=== PATIENT | male | born 1980 | race Caucasian/White ===

== ENCOUNTER 2017-07-30 22:38 | Emergency (ER) | payer OTHER ==
[~2017-07-30] VITALS: Ht 180.3 cm; Wt 98.0 kg
[~2017-07-30 22:38] MED LIST: CYCL1PAK PO; LORA-474 PO; PROT40TA PO; SERO25TA PO; ZOLO25TA PO
[2017-07-30 22:40] VITALS: BP 141/93; PULSE 114; RESP 18; TEMP 99; O2SAT 98
--- NOTE | 2017-07-30 23:00 | PD ---
HPI Chief Complaint: Skin Problem Time Seen by Provider: 22:50 Travel History International Travel<30 days: No Contact w/Intl Traveler<30days: No Traveled to known affect area: No History of Present Illness HPI The patient is a 37 year old male who presents to the [facility] emergency department with a history of IV drug use intermittently since 20 years of age. The patient reports that he mainly uses IV drugs on the weekends. He reports that he has been binging since yesterday with using Dilaudid and cocaine IV. The patient reports that while binging he experienced nausea and vomiting 5-6 times last night. He denies having any diarrhea. He reports that today a Kali 3 hours after injecting his right arm he noticed an area of swelling along the injection site. He reports that he was able to express some yellow drainage from the site. He is concerned that it may be getting infected. He reports that he had a fever with a MAXIMUM TEMPERATURE at home of 100. The patient reports that he recently was diagnosed with rhabdomyolysis. On review of systems otherwise, the patient denies having any cough, congestion, neck pain , chest pain, shortness of breath, abdominal pain, or neurologic symptoms. The patient does however report having symptoms of urinary frequency and urgency. The patient reports having a prior history of kidney stones. [facility] Past Medical History Narrative Medical The patient's past medical history is significant for IVDU, Rhabdomyolysis, chronic back pain due to kyphosis and scoliosis, GERD, kidney stones, anxiety and depression, Hepatitis C. Autoimmune Disease: No Blood Disorders: No Bipolar Disorder: Yes Anxiety: Yes Depression: Yes Cancer: No Cardiovascular Problems: No Chemotherapy: No Diabetes: No Diminished Hearing: No Endocrine: No GERD: Yes Glaucoma: No Genitourinary: Yes Hepatitis: Yes (HEP C) Hiatal Hernia: No Heparin Induced Thrombocytopen: No Immune Disorder: No Kidney Stones: Yes Neurologic: No Psychiatric: Yes Reproductive: No Respiratory: No Radiation Therapy: No Renal Failure: No Sickle Cell Disease: No Thyroid Disease: No Ulcer: No Tetanus Vaccination: < 5 Years Influenza Vaccination: No Past Surgical History Narrative Surgical The patient's past surgical history is significant for a lithotripsy. Abdominal Surgery: No AICD: No Appendectomy: No Arteriovenous Shunt: No Cardiac Surgery: No Cholecystectomy: No Ear Surgery: No Endocrine Surgery: No Eye Surgery: No Genitourinary Surgery: No Gynecologic Surgery: No Insulin Pump: No Joint Replacement: No Neurologic Surgery: No Oral Surgery: No Pacemaker: No Thoracic Surgery: No Other Surgery: Yes (2006--LITHOTRIPSY) Social History Alcohol Use: No Tobacco Use: No Substance Use: Yes (IV DILAUDID, IV cocaine- using since 20 years of age.) Allergies-Medications (Allergen,Severity, Reaction): Coded Allergies: No Known Allergies (Verified Adverse Reaction, Unknown, 07/30/17) Reported Meds & Prescriptions Reported Meds & Active Scripts Active Hydrocodone-Acetaminophen 5-325 mg Tab 1 Tab PO Q6H PRN Doxycycline Hyclate 100 Mg Cap 100 Mg PO BID Bactrim DS (Sulfamethoxazole-Trimethoprim) 800-160 Mg Tab 1 Tab PO BID Protonix (Pantoprazole Sodium) 40 Mg Tab 40 Mg PO DAILY 30 Days Reported Cyclobenzaprinepax 10 & 0.0375-5 mg & % (Hlsrjabbbpetzhq-Xcduqyfyg-Vnrd) 10 Mg Tab 10 Mg PO DAILY Ativan (Lorazepam) 1 Mg Tab 1 Mg PO BID Zoloft (Sertraline HCl) 25 Mg Tab 25 Mg PO DAILY Seroquel 25 mg (Quetiapine Fumarate) 25 Mg Tab 25 Mg PO HS Review of Systems Except as stated in HPI: all other systems reviewed are Neg General / Constitutional: Positive: Fever Eyes: No: Visual changes HENT: No: Headaches Cardiovascular: No: Chest Pain or Discomfort Respiratory: No: Shortness of Breath Gastrointestinal: Positive: Nausea, Vomiting, No: Diarrhea, Abdominal Pain, Changes in Bowel Habits, Indigestion, Loss of Appetite Genitourinary: Positive: Urgency, Frequency, No: Dysuria Musculoskeletal: Positive: Myalgias, Pain Skin: Positive Rash Neurologic: No: Weakness, Focal Abnormalities, Change in Mentation, Slurred Speech, Sensory Disturbance Psychiatric: No: Depression Endocrine: No: Polydipsia Hematologic/Lymphatic: No: Easy Bruising Physical Exam Narrative General: The patient is a well-developed well-nourished male in no acute distress. Head and Neck exam: Head is normocephalic atraumatic. Eyes: EOMI, pupils are equal round and reactive to light. Nose: Midline septum with pink mucous membranes Mouth: Dentition unremarkable. Moist mucus membranes. Posterior oropharynx is not erythematous. No tonsillar hypertrophy. Uvula midline. Airway patent. Neck: No palpable lymphadenopathy. No nuchal rigidity. No thyromegaly. Cardiovascular: Regular rate and rhythm without murmurs, gallops, or rubs. Lungs: Clear to auscultation bilaterally. No wheezes, rhonchi, or rales. Abdomen: Soft, without tenderness to palpation in all 4 quadrants of the abdomen. No guarding, rebound, or rigidity. Normal bowel sounds are audible. No tenderness on palpation of McBurney's point. Extremities: No clubbing, cyanosis, or edema. 2+ pulses in all 4 extremities. No calf tenderness on palpation. The patient is noted to have erythematous papules on the right upper extremity, ventral aspect. He reports that these are multiple injection sites. The one that he reports his area of interest is near the antecubital fossa and is larger than the others is approximately 2 cm in greatest dimension, slightly nodular on palpation, no fluctuance. No drainage is able to be expressed. No vesicle formation. Back: No spinous process tenderness to palpation. No costovertebral angle tenderness to palpation. Neurologic Exam: Grossly nonfocal. Skin Exam: No other rashes are noted. Intact skin that is warm and dry. Data Data Last Documented VS Vital Signs Date Time Temp Pulse Resp B/P (MAP) Pulse Ox O2 Delivery O2 Flow Rate FiO2 07/31/17 01:27 07/30/17 23:48 99 18 96 Room Air 07/30/17 22:40 99.0 Orders Orders Electrocardiogram (07/30/17 23:04) Complete Blood Count With Diff (07/30/17 23:04) Comprehensive Metabolic Panel (07/30/17 23:04) Creatine Kinase (Cpk) (07/30/17 23:04) Ckmb (Isoenzyme) Profile (07/30/17 23:04) Troponin I (07/30/17 23:04) B-Type Natriuretic Peptide (07/30/17 23:04) Prothrombin Time / Inr (Pt) (07/30/17 23:04) Act Partial Throm Time (Ptt) (07/30/17 23:04) Blood Culture (07/30/17 23:04) C-Reactive Protein (Crp) (07/30/17 23:04) Lipase (07/30/17 23:04) Urinalysis - C+S If Indicated (07/30/17 23:04) Westergren Sedimentation Rate (07/30/17 23:04) Magnesium (Mg) (07/30/17 23:04) Chest, Single Ap (07/30/17 23:04) Iv Access Insert/Monitor (07/30/17 23:04) Ecg Monitoring (07/30/17 23:04) Oximetry (07/30/17 23:04) CKMB (07/30/17 23:21) CKMB% (07/30/17 23:21) Ct Abd/Pel W/O Iv Contrast (07/31/17 00:26) Sulfamet-Trimeth Ds 800-160 Mg (Bactrim (07/31/17 01:15) Doxycycline (Vibratab) (07/31/17 01:15) Ed Discharge Order (07/31/17 01:18) Labs Laboratory Tests Test 07/30/17 23:21 White Blood Count 7.6 TH/MM3 Red Blood Count 5.72 MIL/MM3 Hemoglobin 16.1 GM/DL Hematocrit 46.3 % Mean Corpuscular Volume 80.9 FL Mean Corpuscular Hemoglobin 28.2 PG Mean Corpuscular Hemoglobin Concent 34.8 % Red Cell Distribution Width 14.8 % Platelet Count 239 TH/MM3 Mean Platelet Volume 6.8 FL Neutrophils (%) (Auto) 68.2 % Lymphocytes (%) (Auto) 20.7 % Monocytes (%) (Auto) 10.1 % Eosinophils (%) (Auto) 0.7 % Basophils (%) (Auto) 0.3 % Neutrophils # (Auto) 5.2 TH/MM3 Lymphocytes # (Auto) 1.6 TH/MM3 Monocytes # (Auto) 0.8 TH/MM3 Eosinophils # (Auto) 0.1 TH/MM3 Basophils # (Auto) 0.0 TH/MM3 CBC Comment DIFF FINAL Differential Comment Erythrocyte Sedimentation Rate 1 mm/hr Prothrombin Time 10.5 SEC Prothromb Time International Ratio 1.0 RATIO Activated Partial Thromboplast Time 32.0 SEC Urine Color YELLOW Urine Turbidity CLEAR Urine pH 5.0 Urine Specific [place] 1.010 Urine Protein TRACE mg/dL Urine Glucose (UA) NEG mg/dL Urine Ketones TRACE mg/dL Urine Occult Blood SMALL Urine Nitrite NEG Urine Bilirubin NEG Urine Urobilinogen LESS THAN 2.0 MG/DL Urine Leukocyte Esterase NEG Urine RBC 24 /hpf Urine WBC 1 /hpf Urine Squamous Epithelial Cells <1 /hpf Urine Hyaline Casts 1 /lpf Urine Mucus FEW /lpf Microscopic Urinalysis Comment CULT NOT INDICATED Blood Urea Nitrogen 19 MG/DL Creatinine 1.19 MG/DL Random Glucose 87 MG/DL Total Protein 8.9 GM/DL Albumin 4.1 GM/DL Calcium Level 9.5 MG/DL Magnesium Level 2.0 MG/DL Alkaline Phosphatase 89 U/L Aspartate Amino Transf (AST/SGOT) 44 U/L Alanine Aminotransferase (ALT/SGPT) 45 U/L Total Bilirubin 0.7 MG/DL Sodium Level 134 MEQ/L Potassium Level 3.9 MEQ/L Chloride Level 98 MEQ/L Carbon Dioxide Level 28.2 MEQ/L Anion Gap 8 MEQ/L Estimat Glomerular Filtration Rate 69 ML/MIN Total Creatine Kinase 378 U/L Creatine Kinase MB 2.4 NG/ML Creatine Kinase MB % 0.6 % Troponin I LESS THAN 0.02 NG/ML C-Reactive Protein 2.57 MG/DL B-Type Natriuretic Peptide 26 PG/ML Lipase 84 U/L [facility] Medical Decision Making Medical Screen Exam Complete: Yes Emergency Medical Condition: Yes Medical Record Reviewed: Yes Interpretation(s) Last Impressions Abdomen/Pelvis CT 07/31/17 0026 Signed Impressions: Service Date/Time: Monday, July 31, 2017 00:41 - CONCLUSION: 1. 7 x 7 x 10 mm stone in the mid right ureter with moderate to severe hydronephrosis. The stone can be seen on the initial milling planer operator radiograph. 2. Sub-3 mm scattered nonobstructing stones in both kidneys. There is no acute obstruction on the left. Kendell Gonzalez MD Chest X-Ray 07/30/17 4307 Signed Impressions: Service Date/Time: Sunday, July 30, 2017 23:25 - CONCLUSION: No acute cardiopulmonary disease demonstrated. Kendell Gonzalez MD Differential Diagnosis Early cellulitis, versus abscess, versus scarring from prior injections, versus endocarditis, versus bacteremia Narrative Course During the course of the patients emergency department visit, the patients history, examination, and differential diagnosis were reviewed with the patient. The patient was placed on a cardiac tech with oximetry and frequent blood pressure monitoring. The patient had IV access obtained and blood work sent for analysis. The patient had an ECG done on arrival. The patient's ECG shows a sinus rhythm heart rate of 95, QRS duration is 104 ms, QTC 393 ms with an incomplete right bundle branch block noted. No acute ST segment elevation, T waves are inverted in lead 3, aVF, V2. The patient was initially provided Bactrim DS 1 by mouth times one, doxycycline 100 by mouth 1. The patients laboratory studies were reviewed and remarkable for a CBC that is remarkable for a white count of 7.6 with a monocytosis at 10.1, sedimentation rate is normal at 1. CMP is remarkable for sodium of 134, BUN 19, GFR 69, AST 45, CPK 378 with a normal MB percent 0.6, C-reactive protein 2.57, BNP 26, lipase 84, PT 10.5, PTT 32, urinalysis shows trace ketones, small occult blood, rbc's 24. Given the patient's reported history of kidney stones and microscopic hematuria CT scan of the abdomen and pelvis was ordered. Radiology studies were reviewed and remarkable for a chest x-ray that shows no acute cardiopulmonary disease. CT scan of the abdomen and pelvis shows a 7 x 7 x 10 mm stone in the right mid ureter with moderate to severe hydronephrosis. The stone can be seen on the initial milling planer operator radiograph. Less than 3 mm scattered nonobstructing stones in both kidneys. No acute obstruction on the left. The patient was instructed regarding these findings. The patient had no significant pain noted on exam. The patient reports having [facility] insurance. He will follow up with the urologist. He reports that he was already given the name of urologist through [facility] to follow-up with from his primary care physician. The patient will be discharged home on antibiotic for the small area of cellulitis on the right upper extremity. The patient is resting comfortably and feels better, is alert and in no distress. The patients results and examination findings were discussed with the patient. The repeat examination is unremarkable and benign. The history, exam, diagnostic testing, and current condition do not suggest any significant pathology to warrant further testing, continued ED treatment, admission, or surgical evaluation at this point. The vital signs have been stable. The patient does not have uncontrollable pain, intractable vomiting, or other significant symptoms. The patient's condition is stable and appropriate for discharge. The patient will pursue further outpatient evaluation with a primary care physician or other designated or consulting physician as indicated in the discharge instructions. The patient expressed understanding and was agreeable with this plan. Diagnosis Primary Impression: Left ureteral calculus Additional Impression: Cellulitis Qualified Codes: L03.113 - Cellulitis of right upper limb Referrals: Srinivas Betancourt DO 1 day Urologist 1 day Patient Instructions: Cellulitis (ED), General Instructions, Kidney Stones (ED) Additional Instructions: Call a urologist in the morning to schedule a follow-up appointment regarding your right sided kidney stone as this will likely require further intervention with lithotripsy given its size. Med/Other Pt SpecificInfo: Prescription(s) given Scripts Hydrocodone-Acetaminophen (Hydrocodone-Acetaminophen) 5-325 mg Tab 1 TAB PO Q6H Y for PAIN, #12 TAB 0 Refills Prov: Samantha Contreras MD 07/31/17 Doxycycline Hyclate (Doxycycline Hyclate) 100 Mg Cap 100 MG PO BID for Infection, #20 CAP 0 Refills Prov: Samantha Contreras MD 07/31/17 Sulfamethoxazole-Trimethoprim (Bactrim DS) 800-160 Mg Tab 1 TAB PO BID for Infection, #20 TAB 0 Refills Prov: Samantha Contreras MD 07/31/17 Disposition: 01 DISCHARGE HOME Condition: Stable Samantha Contreras MD Jul 30, 2017 23:00
[2017-07-30 23:25] VITALS: RESP 18; O2SAT 98
--- NOTE | 2017-07-30 23:42 | RADRPT ---
EXAM DATE/TIME: 07/30/2017 23:25 [facility] COMPARISON: CHEST SINGLE AP, April 25, 2016, 10:44. INDICATIONS : Headache and dizziness MEDICAL HISTORY : Gastroesophageal reflux disease. Hepatitis C. SURGICAL HISTORY : None. ENCOUNTER: Initial ACUITY: 1 day PAIN SCORE: 7/10 LOCATION: Bilateral chest FINDINGS: A single view of the chest demonstrates the lungs to be symmetrically aerated without evidence of mas s, infiltrate or effusion. The cardiomediastinal contours are unremarkable. Osseous structures are intact. CONCLUSION: No acute cardiopulmonary disease demonstrated. Kendell Gonzalez MD on July 30, 2017 at 23:40 Board Certified Radiologist. This report was verified electronically.
[2017-07-30 23:43] LABS: BILIRUBIN, URINE NEG (NEG); BLOOD, URINE SMALL (NEG); GLUCOSE,URINE NEG (NEG); HYALINE CAST, URINE 1 /lpf (RARE); KETONE, URINE TRACE mg/dL (NEG); MUCUS URINE FEW /lpf (OCC); NITRITE,URINE NEG (NEG); SQUAMOUS EPITHELIAL CELL URINE <1 /hpf (0-5); URINE COLOR YELLOW (YELLW/STRAW); URINE LEUKOCYTE ESTERASE NEG (NEG)
[2017-07-30 23:45] LABS: AUTOMATED NEUTROPHIL # 5.2 TH/MM3 (1.8-7.7); BASOPHIL % 0.3 % (0.0-2.0); EOSINOPHIL # 0.1 TH/MM3 (0-0.4); EOSINOPHIL % 0.7 % (0.0-4.0); HEMATOCRIT 46.3 % (39.0-51.0); HEMOGLOBIN 16.1 GM/DL (13.0-17.0); LYMPH % 20.7 % (9.0-44.0); LYMPHOCYTE # 1.6 TH/MM3 (1.0-4.8); MEAN CELL VOLUME 80.9 FL (80.0-100.0); MEAN CORPUSCULAR HEMOGLOBIN 28.2 PG (27.0-34.0); MEAN CORPUSCULAR HGB CONC 34.8 % (32.0-36.0); MEAN PLATELET VOLUME 6.8 FL (7.0-11.0); MONO % 10.1 % (0.0-8.0); MONOCYTE # 0.8 TH/MM3 (0-0.9); NEUT % 68.2 % (16.0-70.0); PLATELET COUNT 239 TH/MM3 (150-450); RED BLOOD COUNT 5.72 MIL/MM3 (4.50-5.90); RED CELL DISTRIBUTION WIDTH 14.8 % (11.6-17.2); WHITE BLOOD COUNT 7.6 TH/MM3 (4.0-11.0)
[2017-07-30 23:48] VITALS: BP 130/80; PULSE 99; RESP 18; O2SAT 96
[2017-07-30 23:50] LABS: PROTHROMBIN TIME - PATIENT 10.5 SEC (9.8-11.6)
[2017-07-30 23:58] LABS: ALBUMIN 4.1 GM/DL (3.4-5.0); ALT (GPT) 45 U/L (12-78); AST (GOT) 44 U/L (15-37); BICARBONATE 28.2 MEQ/L (21.0-32.0); BLOOD UREA NITROGEN 19 MG/DL (7-18); C-REACTIVE PROTEIN 2.57 MG/DL (0.00-0.30); CALCIUM 9.5 MG/DL (8.5-10.1); CHLORIDE 98 MEQ/L (98-107); CREATININE 1.19 MG/DL (0.60-1.30); GLOMERULAR FILTRATION RATE 69 ML/MIN (>89); GLUCOSE,RANDOM 87 MG/DL (74-106); LIPASE 84 U/L (73-393); SODIUM (NA) 134 MEQ/L (136-145)
[2017-07-30 23:59] LABS: ALKALINE PHOSPHATASE 89 U/L (45-117); TOTAL BILIRUBIN ADULT 0.7 MG/DL (0.2-1.0); TOTAL PROTEIN 8.9 GM/DL (6.4-8.2); TROPONIN I LESS THAN 0.02 NG/ML (0.02-0.05)
--- NOTE | 2017-07-31 00:57 | RADRPT ---
EXAM DATE/TIME: 07/31/2017 00:41 [facility] COMPARISON: No previous studies available for comparison. INDICATIONS : Bialteral flank pain; left greater than right. ORAL CONTRAST: No oral contrast ingested. RADIATION DOSE: 8.42 CTDIvol (mGy) MEDICAL HISTORY : Renal calculi. Hepatitis C. IV drug abuse SURGICAL HISTORY : None. ENCOUNTER: Initial ACUITY: 1 day PAIN SCALE: 5/10 LOCATION: Bilateral flank TECHNIQUE: Volumetric scanning of the abdomen and pelvis was performed. Using automated exposure control and ad justment of the mA and/or kV according to patient size, radiation dose was kept as low as reasonably achievable to obtain optimal diagnostic quality images. DICOM format image data is available electro nically for review and comparison. FINDINGS: LOWER LUNGS: The visualized lower lungs are clear. LIVER: Homogeneous density without lesion. There is no dilation of the biliary tree. No calcified gallston es. SPLEEN: Normal size without lesion. PANCREAS: Within normal limits. KIDNEYS: Irregular stone measuring approximately 7 x 7 x 10 mm in size is seen in knee mid right ureter near t he level of L4. There is associated moderate to severe hydronephrosis and proximal hydroureter.Scatte red sub-3 mm nonobstructing stones are seen of both kidneys. No ureteral calculus or hydronephrosis s een on the left. ADRENAL GLANDS: Within normal limits. VASCULAR: There is no aortic aneurysm. BOWEL/MESENTERY: The stomach, small bowel, and colon demonstrate no acute abnormality. There is no free intraperitone al air or fluid. The appendix is well-visualized, normal. ABDOMINAL WALL: Within normal limits. RETROPERITONEUM: There is no lymphadenopathy. BLADDER: No wall thickening or mass. REPRODUCTIVE: Within normal limits. INGUINAL: There is no lymphadenopathy or hernia. MUSCULOSKELETAL: No acute bony abnormality demonstrated. Chronic appearing anterior wedging seen of multiple lower tho racic and upper lumbar vertebra with associated kyphosis. No acute fracture or subluxation seen. CONCLUSION: 1. 7 x 7 x 10 mm stone in the mid right ureter with moderate to severe hydronephrosis. The stone can be seen on the initial project lead radiograph. 2. Sub-3 mm scattered nonobstructing stones in both kidneys. There is no acute obstruction on the lef t. Kendell Gonzalez MD on July 31, 2017 at 0:52 Board Certified Radiologist. This report was verified electronically.
[2017-07-31] MEDS ORDERED: BACT800T5 PO (01:12)
[2017-07-31] MEDS ORDERED: HYDR-3516 PO (01:12)
[2017-07-31] MEDS ORDERED: DOXY100C PO (01:12)
[2017-07-31] MEDS ORDERED: SULFAMETHOXAZOLE-TRIMETHOPRIM DS 800-160 MG TAB PO ONE (01:15)
[2017-07-31] MEDS ORDERED: DOXYCYCLINE HYCLATE 100 MG TAB PO ONE (01:15)
--- NOTE | 2017-08-01 12:51 | EKG ---
Date Performed: 07/30/2017 Time Performed: 23:46:17 PTAGE: 37 years EKG: Sinus rhythm BORDERLINE LEFT AXIS DEVIATION INCOMPLETE RIGHT BUNDLE BRANCH BLOCK Compared to prior tracing no sig nificant change BORDERLINE ECG PREVIOUS TRACING : 05/23/2016 19.47 DOCTOR: Suraj Contreras Interpretating Date/Time 08/01/2017 12:51:10
== END 2017-07-31 01:28 | disposition home or self-care (01) ==
LOC: NEPC 22:38
DX: N13.2 Hydronephrosis with renal and ureteral calculous obstruction (principal); L03.113 Cellulitis of right upper limb; R11.2 Nausea with vomiting, unspecified; I45.10 Unspecified right bundle-branch block; M62.82 Rhabdomyolysis; M41.9 Scoliosis, unspecified; K21.9 Gastro-esophageal reflux disease without esophagitis; F31.9 Bipolar disorder, unspecified; Z86.19 Personal history of other infectious and parasitic diseases
CPT/HCPCS: 71010; 74176; 80053; 81001; 82550; 82552; 83690; 83735; 83880; 84484; 85025; 85610; 85652; 85730; 86140; 87040; 93005; 99285

== ENCOUNTER 2017-08-17 18:27 | Emergency (ER) | payer OTHER ==
[~2017-08-17 18:27] MED LIST changes: +BACT800T5 PO; +DOXY100C PO; +HYDR-3516 PO
[2017-08-17 18:29] VITALS: BP 142/88; PULSE 96; RESP 16; TEMP 98; O2SAT 100
[2017-08-17 19:23] LABS: AUTOMATED NEUTROPHIL # 2.2 TH/MM3 (1.8-7.7); BASOPHIL # 0.1 TH/MM3 (0-0.2); BASOPHIL % 1.1 % (0.0-2.0); EOSINOPHIL # 0.1 TH/MM3 (0-0.4); EOSINOPHIL % 1.5 % (0.0-4.0); HEMATOCRIT 43.3 % (39.0-51.0); HEMOGLOBIN 15.6 GM/DL (13.0-17.0); LYMPH % 42.4 % (9.0-44.0); LYMPHOCYTE # 2.2 TH/MM3 (1.0-4.8); MEAN CELL VOLUME 80.1 FL (80.0-100.0); MEAN CORPUSCULAR HEMOGLOBIN 28.8 PG (27.0-34.0); MEAN PLATELET VOLUME 6.7 FL (7.0-11.0); MONO % 11.8 % (0.0-8.0); MONOCYTE # 0.6 TH/MM3 (0-0.9); NEUT % 43.2 % (16.0-70.0); PLATELET COUNT 332 TH/MM3 (150-450); RED BLOOD COUNT 5.41 MIL/MM3 (4.50-5.90); RED CELL DISTRIBUTION WIDTH 14.4 % (11.6-17.2); WHITE BLOOD COUNT 5.1 TH/MM3 (4.0-11.0)
[2017-08-17 19:47] LABS: ALBUMIN 4.2 GM/DL (3.4-5.0); AST (GOT) 37 U/L (15-37); BICARBONATE 29.2 MEQ/L (21.0-32.0); BLOOD UREA NITROGEN 7 MG/DL (7-18); CALCIUM 9.4 MG/DL (8.5-10.1); CHLORIDE 99 MEQ/L (98-107); CREATININE 1.07 MG/DL (0.60-1.30); GLOMERULAR FILTRATION RATE 78 ML/MIN (>89); GLUCOSE,RANDOM 77 MG/DL (74-106); SODIUM (NA) 134 MEQ/L (136-145)
[2017-08-17 19:49] LABS: ALT (GPT) 45 U/L (12-78)
[2017-08-17 19:51] LABS: ALKALINE PHOSPHATASE 87 U/L (45-117); TOTAL BILIRUBIN ADULT 0.5 MG/DL (0.2-1.0); TOTAL PROTEIN 9.3 GM/DL (6.4-8.2)
[2017-08-17] MEDS ORDERED: TRAZ100T10 PO (19:53)
[2017-08-17] MEDS ORDERED: CYMB60CA PO (19:53)
[2017-08-17] MEDS ORDERED: LORA-474 PO (19:53)
[2017-08-17 19:56] LABS: BACTERIA, URINE OCC /hpf; BILIRUBIN, URINE NEG (NEG); BLOOD, URINE TRACE (NEG); CALCIUM OXALATE CRYSTALS,URINE FEW /hpf; GLUCOSE,URINE NEG (NEG); KETONE, URINE NEG (NEG); MUCUS URINE MOD /lpf (OCC); NITRITE,URINE NEG (NEG); SQUAMOUS EPITHELIAL CELL URINE 1 /hpf (0-5); URIC ACID CRYSTALS, URINE FEW /hpf; URINE COLOR YELLOW (YELLW/STRAW); URINE LEUKOCYTE ESTERASE SMALL (NEG)
[2017-08-17] MEDS ORDERED: KETOROLAC TROMETHAMINE 60 MG/2 ML (IM) VIAL IM ONE (20:30)
[2017-08-17] MEDS ORDERED: SULFAMETHOXAZOLE-TRIMETHOPRIM DS 800-160 MG TAB PO ONE (20:30)
[2017-08-17] MEDS ORDERED: ACETAMINOPHEN/HYDROcodone 325 MG/5 MG TAB PO ONE (20:30)
[2017-08-17] MEDS ORDERED: NORC5TAB PO (20:32)
[2017-08-17] MEDS ORDERED: BACT800T5 PO (20:32)
--- NOTE | 2017-08-17 20:32 | PD ---
HPI Chief Complaint: Flank/Kidney Pain Time Seen by Provider: 20:12 Travel History International Travel<30 days: No Contact w/Intl Traveler<30days: No Traveled to known affect area: No History of Present Illness HPI 37 years old male complains of right flank pain. Patient states that he has history of kidney stone and awaiting lithotripsy. Patient has been seen by urologist Dr. Prieto. Patient states that he has increasing pain on the right flank area since earlier today. Patient states the pain severe sharp pain localized the right flank area. Patient denies any pain radiation. Patient denies any fever chills. Patient denies any nausea vomiting. Patient denies any dysuria or frequency. Patient states that he noticed hematuria today. PFSH Past Medical History Autoimmune Disease: No Blood Disorders: No Bipolar Disorder: Yes Anxiety: Yes Depression: Yes Cancer: No Cardiovascular Problems: No Chemotherapy: No Diabetes: No Diminished Hearing: No Endocrine: No GERD: Yes Glaucoma: No Genitourinary: Yes Hepatitis: Yes (HEP C) Hiatal Hernia: No Heparin Induced Thrombocytopen: No Immune Disorder: No Kidney Stones: Yes Neurologic: No Psychiatric: Yes Reproductive: No Respiratory: No Radiation Therapy: No Renal Failure: No Sickle Cell Disease: No Thyroid Disease: No Ulcer: No Past Surgical History Abdominal Surgery: No AICD: No Appendectomy: No Arteriovenous Shunt: No Cardiac Surgery: No Cholecystectomy: No Ear Surgery: No Endocrine Surgery: No Eye Surgery: No Genitourinary Surgery: No Gynecologic Surgery: No Insulin Pump: No Joint Replacement: No Neurologic Surgery: No Oral Surgery: No Pacemaker: No Thoracic Surgery: No Other Surgery: Yes (2006--LITHOTRIPSY) Social History Alcohol Use: No Tobacco Use: No Substance Use: Yes (IV DILAUDID, IV cocaine- using since 20 years of age.) Allergies-Medications (Allergen,Severity, Reaction): Coded Allergies: No Known Allergies (Verified Adverse Reaction, Unknown, 08/17/17) Reported Meds & Prescriptions Reported Meds & Active Scripts Active Reported Trazodone (Trazodone HCl) 100 Mg Tablet 200 Mg PO HS Ativan (Lorazepam) 1 Mg Tab 1 Mg PO BID PRN Cymbalta DR (Duloxetine HCl) 60 Mg Capdr 60 Mg PO DAILY Review of Systems General / Constitutional: No: Fever Eyes: No: Visual changes HENT: No: Headaches Cardiovascular: No: Chest Pain or Discomfort Respiratory: No: Shortness of Breath Gastrointestinal: No: Abdominal Pain Genitourinary: Positive: Hematuria, No: Dysuria Musculoskeletal: No: Pain Skin: No Rash Neurologic: No: Weakness Psychiatric: No: Depression Endocrine: No: Polydipsia Hematologic/Lymphatic: No: Easy Bruising Physical Exam Narrative GENERAL: Well-nourished, well-developed patient. SKIN: Focused skin assessment warm/dry. HEAD: Normocephalic. EYES: No scleral icterus. No injection or drainage. NECK: Supple, trachea midline. No JVD or lymphadenopathy. CARDIOVASCULAR: Regular rate and rhythm without murmurs, gallops, or rubs. RESPIRATORY: Breath sounds equal bilaterally. No accessory muscle use. GASTROINTESTINAL: Abdomen soft, non-tender, nondistended. MUSCULOSKELETAL: No cyanosis, or edema. BACK: Patient has mild to moderate tenderness on palpation right flank area without obvious deformity. No CVA tenderness. Data Data Last Documented VS Vital Signs Date Time Temp Pulse Resp B/P (MAP) Pulse Ox O2 Delivery O2 Flow Rate FiO2 08/17/17 18:29 98.0 96 16 142/88 (106) 100 Orders Orders Complete Blood Count With Diff (08/17/17 18:45) Comprehensive Metabolic Panel (08/17/17 18:45) Urinalysis - C+S If Indicated (08/17/17 18:45) Urine Culture (08/17/17 18:55) Ketorolac Inj (Toradol Inj) (08/17/17 20:30) Acetamin-Hydrocod 325-5 Mg (Grahn 5-325 (08/17/17 20:30) Labs Laboratory Tests Test 08/17/17 18:55 White Blood Count 5.1 TH/MM3 Red Blood Count 5.41 MIL/MM3 Hemoglobin 15.6 GM/DL Hematocrit 43.3 % Mean Corpuscular Volume 80.1 FL Mean Corpuscular Hemoglobin 28.8 PG Mean Corpuscular Hemoglobin Concent 36.0 % Red Cell Distribution Width 14.4 % Platelet Count 332 TH/MM3 Mean Platelet Volume 6.7 FL Neutrophils (%) (Auto) 43.2 % Lymphocytes (%) (Auto) 42.4 % Monocytes (%) (Auto) 11.8 % Eosinophils (%) (Auto) 1.5 % Basophils (%) (Auto) 1.1 % Neutrophils # (Auto) 2.2 TH/MM3 Lymphocytes # (Auto) 2.2 TH/MM3 Monocytes # (Auto) 0.6 TH/MM3 Eosinophils # (Auto) 0.1 TH/MM3 Basophils # (Auto) 0.1 TH/MM3 CBC Comment AUTO DIFF Differential Comment AUTO DIFF CONFIRMED Platelet Estimate NORMAL Platelet Morphology Comment NORMAL Red Cell Morphology Comment NORMAL Urine Color YELLOW Urine Turbidity HAZY Urine pH 6.0 Urine Specific [place] 1.014 Urine Protein TRACE mg/dL Urine Glucose (UA) NEG mg/dL Urine Ketones NEG mg/dL Urine Occult Blood TRACE Urine Nitrite NEG Urine Bilirubin NEG Urine Urobilinogen 2.0 MG/DL Urine Leukocyte Esterase SMALL Urine RBC 12 /hpf Urine WBC 15 /hpf Urine Squamous Epithelial Cells 1 /hpf Urine Calcium Oxalate Crystals FEW /hpf Urine Uric Acid Crystals FEW /hpf Urine Bacteria OCC /hpf Urine Mucus MOD /lpf Microscopic Urinalysis Comment CULTURE INDICATED Blood Urea Nitrogen 7 MG/DL Creatinine 1.07 MG/DL Random Glucose 77 MG/DL Total Protein 9.3 GM/DL Albumin 4.2 GM/DL Calcium Level 9.4 MG/DL Alkaline Phosphatase 87 U/L Aspartate Amino Transf (AST/SGOT) 37 U/L Alanine Aminotransferase (ALT/SGPT) 45 U/L Total Bilirubin 0.5 MG/DL Sodium Level 134 MEQ/L Potassium Level 3.2 MEQ/L Chloride Level 99 MEQ/L Carbon Dioxide Level 29.2 MEQ/L Anion Gap 6 MEQ/L Estimat Glomerular Filtration Rate 78 ML/MIN [facility] Medical Decision Making Medical Screen Exam Complete: Yes Emergency Medical Condition: Yes Interpretation(s) 2026 PM. CBC within normal limits. Sodium 134. Potassium 3.2. UA positive for WBC, RBC, bacteria. Differential Diagnosis Differential diagnosis including acute exacerbation of flank pain from kidney stone. Narrative Course 37 years old male with right flank pain and hematuria. History of kidney stone. Patient's awaiting lithotripsy. Toradol 60 mg IM. Lortab 5/325, 1 tablet p.o. given. Diagnosis Primary Impression: Nephrolithiasis Additional Impression: UTI (urinary tract infection) Qualified Codes: N30.01 - Acute cystitis with hematuria Patient Instructions: General Instructions Additional Instructions: Take medications as directed. Follow-up with urologist. Return if worse. Return if intractable pain, persistent vomiting, fever. Med/Other Pt SpecificInfo: Prescription(s) given Scripts Hydrocodone-Acetaminophen (Grahn) 5 Mg-325 Mg Tab 1 TAB PO Q6H Y for PAIN, #20 TAB 0 Refills Prov: Geremias Richmond MD 08/17/17 Sulfamethoxazole-Trimethoprim (Bactrim DS) 800-160 Mg Tab 1 TAB PO BID for Infection, #14 TAB 0 Refills Prov: Geremias Richmond MD 08/17/17 Disposition: 01 DISCHARGE HOME Condition: Stable Geremias Richmond MD Aug 17, 2017 20:32
== END 2017-08-17 21:09 | disposition home or self-care (01) ==
LOC: NEPD 18:27
DX: N20.0 Calculus of kidney (principal); N30.01 Acute cystitis with hematuria; B19.20 Unspecified viral hepatitis C without hepatic coma; F31.9 Bipolar disorder, unspecified; F41.9 Anxiety disorder, unspecified
CPT/HCPCS: 80053; 81001; 85025; 87086; 96372; J1885

== ENCOUNTER 2017-10-20 11:29 | Inpatient (IN) | payer OTHER ==
[~2017-10-20] VITALS: Ht 182.9 cm; Wt 101.2 kg
[~2017-10-20 11:29] MED LIST changes: -CYCL1PAK PO; +CYMB60CA PO; -DOXY100C PO; -HYDR-3516 PO; +NORC5TAB PO; -PROT40TA PO; -SERO25TA PO; +TRAZ100T10 PO; -ZOLO25TA PO
[2017-10-20 11:35] VITALS: BP 108/70; PULSE 99; RESP 17; TEMP 98.1; O2SAT 96
[2017-10-20] MEDS ORDERED: SODIUM CHLOR 0.9% 1000 ML INJ 1,000 ML IV ONE ×2 (11:45→13:00)
[2017-10-20 12:08] LABS: AUTOMATED NEUTROPHIL # 14.3 TH/MM3 (1.8-7.7); BASOPHIL % 0.3 % (0.0-2.0); HEMATOCRIT 51.8 % (39.0-51.0); HEMOGLOBIN 17.4 GM/DL (13.0-17.0); LYMPH % 7.3 % (9.0-44.0); LYMPHOCYTE # 1.3 TH/MM3 (1.0-4.8); MEAN CELL VOLUME 81.5 FL (80.0-100.0); MEAN CORPUSCULAR HEMOGLOBIN 27.3 PG (27.0-34.0); MEAN CORPUSCULAR HGB CONC 33.6 % (32.0-36.0); MEAN PLATELET VOLUME 6.9 FL (7.0-11.0); MONO % 14.2 % (0.0-8.0); MONOCYTE # 2.6 TH/MM3 (0-0.9); NEUT % 78.2 % (16.0-70.0); PLATELET COUNT 274 TH/MM3 (150-450); RED BLOOD COUNT 6.36 MIL/MM3 (4.50-5.90); RED CELL DISTRIBUTION WIDTH 15.7 % (11.6-17.2); WHITE BLOOD COUNT 18.3 TH/MM3 (4.0-11.0)
--- NOTE | 2017-10-20 12:12 | RADRPT ---
EXAM DATE/TIME: 10/20/2017 11:54 [facility] COMPARISON: CHEST SINGLE AP, July 30, 2017, 23:25. INDICATIONS : Body weakness, nausea, unable to urinate. MEDICAL HISTORY : Rhabdomyolysis SURGICAL HISTORY : None. ENCOUNTER: Initial ACUITY: 2 days PAIN SCORE: 0/10 LOCATION: Bilateral chest FINDINGS: A single view of the chest demonstrates the lungs to be symmetrically aerated without evidence of mas s, infiltrate or effusion. The cardiomediastinal contours are unremarkable. Osseous structures are intact. CONCLUSION: No acute disease. Renaldo Erickson MD FACR on October 20, 2017 at 12:09 Board Certified Radiologist. This report was verified electronically.
--- NOTE | 2017-10-20 12:13 | RADRPT ---
EXAM DATE/TIME: 10/20/2017 12:01 [facility] COMPARISON: No previous studies available for comparison. INDICATIONS : Patient woke up on ground. Complaining of leg weakness RADIATION DOSE: 66.35 CTDIvol (mGy) MEDICAL HISTORY : Gastroesophageal reflux disease. Hepatitis C. SURGICAL HISTORY : None. ENCOUNTER: Initial ACUITY: 1 day PAIN SCALE: 0/10 LOCATION: cranial TECHNIQUE: Multiple contiguous axial images were obtained of the head. Using automated exposure control and adj ustment of the mA and/or kV according to patient size, radiation dose was kept as low as reasonably a chievable to obtain optimal diagnostic quality images. DICOM format image data is available electro nically for review and comparison. FINDINGS: CEREBRUM: The ventricles are normal for age. No evidence of midline shift, mass lesion, hemorrhage or acute in farction. No extra-axial fluid collections are seen. POSTERIOR FOSSA: The cerebellum and brainstem are intact. The 4th ventricle is midline. The cerebellopontine angle i s unremarkable. EXTRACRANIAL: The visualized portion of the orbits is intact. SKULL: The calvaria is intact. No evidence of skull fracture. CONCLUSION: Negative for an acute process. Renaldo Erickson MD FACR on October 20, 2017 at 12:11 Board Certified Radiologist. This report was verified electronically.
[2017-10-20 12:15] LABS: INTERNATIONAL NORMALIZED RATIO 1.1 RATIO; PROTHROMBIN TIME - PATIENT 10.7 SEC (9.8-11.6)
[2017-10-20 12:22] LABS: ALBUMIN 4.1 GM/DL (3.4-5.0); BICARBONATE 17.9 MEQ/L (21.0-32.0); BLOOD UREA NITROGEN 25 MG/DL (7-18); CALCIUM 8.1 MG/DL (8.5-10.1); CHLORIDE 100 MEQ/L (98-107); CREATININE 3.22 MG/DL (0.60-1.30); GLOMERULAR FILTRATION RATE 22 ML/MIN (>89); GLUCOSE,RANDOM 99 MG/DL (74-106); SODIUM (NA) 133 MEQ/L (136-145)
[2017-10-20 12:23] LABS: ALT (GPT) 250 U/L (12-78)
--- NOTE | 2017-10-20 12:23 | RADRPT ---
EXAM DATE/TIME: 10/20/2017 12:01 [facility] COMPARISON: No previous studies available for comparison. INDICATIONS : Patient woke up on ground. Left neck pain RADIATION DOSE: 19.58 CTDIvol (mGy) MEDICAL HISTORY : Gastroesophageal reflux disease. Hepatitis C. SURGICAL HISTORY : None. ENCOUNTER: Initial ACUITY: 1 day PAIN SCALE: 6/10 LOCATION: Left neck TECHNIQUE: Volumetric scanning of the cervical spine was performed. Multiplanar reconstructions in the sagittal, coronal and oblique axial planes were performed. Using automated exposure control and adjustment o f the mA and/or kV according to patient size, radiation dose was kept as low as reasonably achievable to obtain optimal diagnostic quality images. DICOM format image data is available electronically f or review and comparison. FINDINGS: No fractures. VERTEBRAE: Normal vertebral body height. ALIGNMENT: No evidence of subluxation. C2-C3: The bony spinal canal is normal in size. No evidence of disc bulge or herniation. The neural forami na are bilaterally patent. C3-C4: The bony spinal canal is normal in size. No evidence of disc bulge or herniation. The neural forami na are bilaterally patent. C4-C5: Mild asymmetry right-sided uncovertebral osteophytic spurring. No significant canal or foraminal comp romise. C5-C6: The bony spinal canal is normal in size. No evidence of disc bulge or herniation. The neural forami na are bilaterally patent. C6-C7: The bony spinal canal is normal in size. No evidence of disc bulge or herniation. The neural forami na are bilaterally patent. C7-T1: The bony spinal canal is normal in size. No evidence of disc bulge or herniation. The neural forami na are bilaterally patent. CONCLUSION: No acute bony injury of the cervical spine Kendell Aguilar MD on October 20, 2017 at 12:17 Board Certified Radiologist. This report was verified electronically.
[2017-10-20 12:25] LABS: LACTIC ACID SEPSIS PROTOCOL 2.3 mmol/L (0.4-2.0)
[2017-10-20] MEDS ORDERED: VANCOMYCIN INJ 1,250 MG in SODIUM CHLOR 0.9% 250 ML INJ 250 ML IV ONE (12:30)
[2017-10-20] MEDS ORDERED: cefTRIAXone INJ 2,000 MG in SODIUM CHLORIDE 0.9% INJ 100 ML IV ONE (12:30)
[2017-10-20 12:49] LABS: ALKALINE PHOSPHATASE 99 U/L (45-117); AST (GOT) 1422 U/L (15-37); TOTAL BILIRUBIN ADULT 0.4 MG/DL (0.2-1.0); TOTAL PROTEIN 9.5 GM/DL (6.4-8.2)
[2017-10-20 12:56] LABS: BANDS 4 % (0-6); LYMPHOCYTES 9 % (9-44); MONOCYTES 14 % (0-8); NEUTROPHIL # MANUAL DIFF 14.1 TH/MM3 (1.8-7.7); POLYS (SEG NEUTROPHILS) 73 % (16-70)
[2017-10-20 13:23] VITALS: BP 109/60; PULSE 93; RESP 17; O2SAT 95
--- NOTE | 2017-10-20 13:38 | PD ---
HPI Chief Complaint: Neuro Symptoms/ Deficits Time Seen by Provider: 11:36 Travel History International Travel<30 days: No Contact w/Intl Traveler<30days: No Traveled to known affect area: No History of Present Illness HPI Patient is a 37-year-old male who comes in complaining of feeling unwell. He says he used cocaine and heroin last night and does not know what happened. He woke up on the floor today not feeling well. He is not sure if he has a fever. He says he has some pain to his left side and had some pain in his left leg. He does not know if he fell. He denies shortness of breath, nausea or vomiting. Severity is mild to moderate. PFSH Past Medical History Autoimmune Disease: No Blood Disorders: No Bipolar Disorder: Yes Anxiety: Yes Depression: Yes Cancer: No Cardiovascular Problems: No Chemotherapy: No Diabetes: No Diminished Hearing: No Endocrine: No GERD: Yes Glaucoma: No Genitourinary: Yes Hepatitis: Yes (HEP C) Hiatal Hernia: No Heparin Induced Thrombocytopen: No Immune Disorder: No Kidney Stones: Yes Neurologic: No Psychiatric: Yes Reproductive: No Respiratory: No Radiation Therapy: No Renal Failure: No Sickle Cell Disease: No Thyroid Disease: No Ulcer: No Influenza Vaccination: No Past Surgical History Abdominal Surgery: No AICD: No Appendectomy: No Arteriovenous Shunt: No Cardiac Surgery: No Cholecystectomy: No Ear Surgery: No Endocrine Surgery: No Eye Surgery: No Genitourinary Surgery: No Gynecologic Surgery: No Insulin Pump: No Joint Replacement: No Neurologic Surgery: No Oral Surgery: No Pacemaker: No Thoracic Surgery: No Other Surgery: Yes (2006&2016--LITHOTRIPSY) Social History Alcohol Use: No Tobacco Use: No Substance Use: Yes (IV DILAUDID, IV cocaine- using since 20 years of age.) Allergies-Medications (Allergen,Severity, Reaction): Coded Allergies: No Known Allergies (Verified Allergy, Unknown, 10/20/17) Reported Meds & Prescriptions Reported Meds & Active Scripts Active Reported Trazodone (Trazodone HCl) 100 Mg Tablet 200 Mg PO HS Ativan (Lorazepam) 1 Mg Tab 1 Mg PO BID PRN Cymbalta DR (Duloxetine HCl) 60 Mg Capdr 60 Mg PO DAILY Review of Systems Except as stated in HPI: all other systems reviewed are Neg General / Constitutional: No: Fever, Chills HENT: No: Headaches, Lightheadedness Respiratory: No: Shortness of Breath Gastrointestinal: No: Nausea, Vomiting Musculoskeletal: Positive: Myalgias Skin: No Rash, No Change in Pigmentation Neurologic: No: Weakness, Dizziness Physical Exam Narrative GENERAL: Awake and alert, in no acute distress. SKIN: Focused skin assessment warm/dry. Track hicks present, no abscesses or cellulitis. HEAD: Atraumatic. Normocephalic. EYES: Pupils equal and round. No scleral icterus. ENT: Mucous membranes pink and moist. NECK: Trachea midline. No JVD. CARDIOVASCULAR: Regular rate and rhythm. No murmur appreciated. RESPIRATORY: No accessory muscle use. Clear to auscultation. Breath sounds equal bilaterally. GASTROINTESTINAL: Abdomen soft, non-tender, nondistended. MUSCULOSKELETAL: No obvious deformities. No clubbing. No cyanosis. No edema. NEUROLOGICAL: Awake and alert. No obvious cranial nerve deficits. Motor grossly within normal limits. Normal speech. PSYCHIATRIC: Appropriate mood and affect; insight and judgment normal. Data Data Last Documented VS Vital Signs Date Time Temp Pulse Resp B/P (MAP) Pulse Ox O2 Delivery O2 Flow Rate FiO2 10/20/17 13:23 93 17 109/60 (76) 95 10/20/17 11:35 98.1 Orders Orders Electrocardiogram (10/20/17 11:36) Complete Blood Count With Diff (10/20/17 11:36) Comprehensive Metabolic Panel (10/20/17 11:36) Prothrombin Time / Inr (Pt) (10/20/17 11:36) Act Partial Throm Time (Ptt) (10/20/17 11:36) Lactic Acid Sepsis Protocol (10/20/17 11:36) Ckmb (Isoenzyme) Profile (10/20/17 11:36) Troponin I (10/20/17 11:36) Urinalysis - C+S If Indicated (10/20/17 11:36) Blood Culture (10/20/17 11:36) Chest, Single Ap (10/20/17 11:36) Blood Glucose (10/20/17 11:36) Ecg Monitoring (10/20/17 11:36) Iv Access Insert/Monitor (10/20/17 11:36) Oximetry (10/20/17 11:36) Oxygen Administration (10/20/17 11:36) Ct Brain W/O Iv Contrast(Rout) (10/20/17 11:36) Ct Cerv Spine W/O Contrast (10/20/17 ) Sodium Chlor 0.9% 1000 Ml Inj (Ns 1000 M (10/20/17 11:45) Ceftriaxone Inj (Rocephin Inj) (10/20/17 12:30) Vancomycin Inj (Vancomycin Inj) (10/20/17 12:30) Sodium Chlor 0.9% 1000 Ml Inj (Ns 1000 M (10/20/17 13:00) Heparin Inj (Heparin Inj) (10/20/17 19:45) Heparin Inj (Heparin Inj) (10/20/17 19:45) Heparin-D5w 25,000 U/250 Ml (Heparin-D5w (10/20/17 13:45) Admit Order (Ed Use Only) (10/20/17 ) CKMB (10/20/17 11:50) CKMB% (10/20/17 11:50) Labs Laboratory Tests Test 10/20/17 11:50 10/20/17 11:58 White Blood Count 18.3 TH/MM3 Red Blood Count 6.36 MIL/MM3 Hemoglobin 17.4 GM/DL Hematocrit 51.8 % Mean Corpuscular Volume 81.5 FL Mean Corpuscular Hemoglobin 27.3 PG Mean Corpuscular Hemoglobin Concent 33.6 % Red Cell Distribution Width 15.7 % Platelet Count 274 TH/MM3 Mean Platelet Volume 6.9 FL Neutrophils (%) (Auto) 78.2 % Lymphocytes (%) (Auto) 7.3 % Monocytes (%) (Auto) 14.2 % Eosinophils (%) (Auto) 0.0 % Basophils (%) (Auto) 0.3 % Neutrophils # (Auto) 14.3 TH/MM3 Lymphocytes # (Auto) 1.3 TH/MM3 Monocytes # (Auto) 2.6 TH/MM3 Eosinophils # (Auto) 0.0 TH/MM3 Basophils # (Auto) 0.0 TH/MM3 CBC Comment AUTO DIFF Differential Total Cells Counted 100 Neutrophils % (Manual) 73 % Band Neutrophils % 4 % Lymphocytes % 9 % Monocytes % 14 % Neutrophils # (Manual) 14.1 TH/MM3 Differential Comment FINAL DIFF MANUAL Platelet Estimate NORMAL Platelet Morphology Comment NORMAL Red Cell Morphology Comment NORMAL Prothrombin Time 10.7 SEC Prothromb Time International Ratio 1.1 RATIO Activated Partial Thromboplast Time 32.4 SEC Blood Urea Nitrogen 25 MG/DL Creatinine 3.22 MG/DL Random Glucose 99 MG/DL Total Protein 9.5 GM/DL Albumin 4.1 GM/DL Calcium Level 8.1 MG/DL Alkaline Phosphatase 99 U/L Aspartate Amino Transf (AST/SGOT) 1422 U/L Alanine Aminotransferase (ALT/SGPT) 250 U/L Total Bilirubin 0.4 MG/DL Sodium Level 133 MEQ/L Potassium Level 5.7 MEQ/L Chloride Level 100 MEQ/L Carbon Dioxide Level 17.9 MEQ/L Anion Gap 15 MEQ/L Estimat Glomerular Filtration Rate 22 ML/MIN Total Creatine Kinase 86727 U/L Creatine Kinase MB 481.4 NG/ML Creatine Kinase MB % 0.7 % Troponin I 11.20 NG/ML Lactic Acid Level 2.3 mmol/L [facility] Medical Decision Making Medical Screen Exam Complete: Yes Emergency Medical Condition: Yes Medical Record Reviewed: Yes Interpretation(s) ECG shows an incomplete right bundle branch block, no ST elevation or depression Differential Diagnosis Endocarditis versus sepsis versus fall versus drug abuse versus rhabdomyolysis versus NSTEMI Narrative Course Patient is a 37-year-old male who comes in from home complaining of feeling unwell. Exam shows no neurologic abnormalities, he is moving all his extremities. IV established, labs sent. Labs concerning for an elevated white blood cell count to 18.3. Creatinine is elevated to 3.22. AST and ALT are elevated. Troponin is 11.2. I spoke with Dr. spears of cardiology. He suggests starting the patient on heparin and he will do an echocardiogram. Patient also treated with antibiotics for possible endocarditis. He will be admitted for further management. Diagnosis Primary Impression: Acute renal failure (ARF) Qualified Codes: N17.9 - Acute kidney failure, unspecified Additional Impressions: Polysubstance abuse NSTEMI (non-ST elevated myocardial infarction) Endocarditis Qualified Codes: I33.9 - Acute and subacute endocarditis, unspecified Admitting Information Admitting Physician Requests: Admit Radha aHskins MD Oct 20, 2017 13:38
[2017-10-20] MEDS ORDERED: HEPARIN-D5W 25,000 U/250 ML 250 ML IV PRN (13:45)
--- NOTE | 2017-10-20 14:17 | EKG ---
Date Performed: 10/20/2017 Time Performed: 11:38:40 PTAGE: 37 years EKG: Sinus rhythm INDETERMINATE AXIS INCOMPLETE RIGHT BUNDLE BRANCH BLOCK BORDERLINE ECG PROBABLY No significant thomason e from prior electrocardiogram. PREVIOUS TRACING : 07/30/2017 23.46 DOCTOR: Gera Modi Interpretating Date/Time 10/20/2017 14:16:55
[2017-10-20 16:10] LABS: AMORPHOUS SEDIMENT, URINE RARE; BILIRUBIN, URINE NEG (NEG); BLOOD, URINE LARGE (NEG); CALCIUM OXALATE CRYSTALS,URINE OCC /hpf; GLUCOSE,URINE NEG (NEG); KETONE, URINE TRACE mg/dL (NEG); NITRITE,URINE NEG (NEG); PH, URINE 5.5 (5.0-8.5); SQUAMOUS EPITHELIAL CELL URINE 3 /hpf (0-5); URINE LEUKOCYTE ESTERASE TRACE (NEG)
[2017-10-20 16:12] LABS: URINE COLOR RED (YELLW/STRAW)
--- NOTE | 2017-10-20 16:20 | HHI.HP ---
HPI Service [facility] Hospitalists Primary Care Physician Renaldo Villalba, DO Admission Diagnosis Cocaine induced rhabdomyolysis, acute renal failure Chief Complaint: LE weakness Travel History International Travel<30 Days: No Contact w/Intl Traveler <30 Da: No Traveled to Known Affected Are: No History of Present Illness Mr. Mathias is a 37 y/o WM with history of polysubstance abuse/IVDA, hx of rhabdomyolysis, nephrolithiasis and had lithotripsy in August 2017 and Hepatitis C. Pt presented to the ED at [facility] on 10/20/17 with complaints of LE weakness and feeling unwell. He reports that he injected heroin and cocaine into his arm yesterday and then he woke up around 330AM this morning on the floor and felt like he couldn't move his legs. He states that he typically uses iv Dilaudid once every couple weeks, iv cocaine about once per month and iv heroin about once per year. He states that when he has used IV heroin in the past he has had rhabdomyolysis. This occurred in 2015 as well and pt was hospitalized at that time. Pt has had a few episodes of vomiting today and feels that he has severe weakness in his legs and a pins and needles sensation. He had urinated a small amount of dark urine today. His labs at admission revealed total CK 68,160, CK-MB 481.4, Cr 3.22/BUN 25, potassium 5.7 and Troponin 11.20. Pt denies any fevers, chills, night sweats, chest pain, SOB, palpitations, abdominal pain, lightheadedness or dizziness. Blood cultures were drawn in the ED and are pending. Pt has received 2L of IV NS in the ED so far. Review of Systems Gastrointestinal: COMPLAINS OF: Nausea, Vomiting, DENIES: Abdominal pain, Diarrhea Musculoskeletal: COMPLAINS OF: Muscle aches, DENIES: Joint pain Integumentary: DENIES: Rash Neurologic: COMPLAINS OF: Localized weakness Past Family Social History Past Medical History IVDA Hepatitis C, treatment naive Depression/Anxiety Nephrolithiasis Hx of rhabdomyolysis in 2016 Past Surgical History None reported Reported Medications -Trazodone 200 Mg PO HS -Ativan 1 Mg PO BID PRN -Cymbalta DR 60 Mg PO DAILY Allergies: Coded Allergies: No Known Allergies (Verified Allergy, Unknown, 10/20/17) Family History Noncontributory Social History (+)IVDA, typically uses iv Dilaudid once every couple weeks, iv cocaine about once per month and iv heroin about once per year. Denies any alcohol use Pt denies any tobacco use Physical Exam Vital Signs Vital Signs Date Time Temp Pulse Resp B/P (MAP) Pulse Ox O2 Delivery O2 Flow Rate FiO2 10/20/17 13:23 93 17 109/60 (76) 95 10/20/17 11:35 98.1 99 17 108/70 (83) 96 Physical Exam GENERAL: This is a well-nourished, well-developed patient, in no apparent distress. SKIN: Cool and dry. Injection hicks on the tops of bilateral feet and on his arms HEENT: Atraumatic. Normocephalic. No temporal or scalp tenderness. No scleral icterus. Airway patent. NECK: Trachea midline, supple, nontender. CARDIO: Regular. RESP: CTA bilaterally. No wheezes, rales, or rhonchi. ABD: +BS, soft, non-tender, nondistended. EXT: Extremities without clubbing, cyanosis, or edema. Pain with palpation of the calves and pain with movement of his legs NEURO: Awake and alert. Motor and sensory grossly within normal limits. Normal speech. Laboratory Laboratory Tests Test 10/20/17 11:50 10/20/17 11:58 10/20/17 15:00 10/20/17 15:25 White Blood Count 18.3 Red Blood Count 6.36 Hemoglobin 17.4 Hematocrit 51.8 Mean Corpuscular Volume 81.5 Mean Corpuscular Hemoglobin 27.3 Mean Corpuscular Hemoglobin Concent 33.6 Red Cell Distribution Width 15.7 Platelet Count 274 Mean Platelet Volume 6.9 Neutrophils (%) (Auto) 78.2 Lymphocytes (%) (Auto) 7.3 Monocytes (%) (Auto) 14.2 Eosinophils (%) (Auto) 0.0 Basophils (%) (Auto) 0.3 Neutrophils # (Auto) 14.3 Lymphocytes # (Auto) 1.3 Monocytes # (Auto) 2.6 Eosinophils # (Auto) 0.0 Basophils # (Auto) 0.0 CBC Comment AUTO DIFF Differential Total Cells Counted 100 Neutrophils % (Manual) 73 Band Neutrophils % 4 Lymphocytes % 9 Monocytes % 14 Neutrophils # (Manual) 14.1 Differential Comment FINAL DIFF MANUAL Platelet Estimate NORMAL Platelet Morphology Comment NORMAL Red Cell Morphology Comment NORMAL Prothrombin Time 10.7 Prothromb Time International Ratio 1.1 Activated Partial Thromboplast Time 32.4 Blood Urea Nitrogen 25 Creatinine 3.22 Random Glucose 99 Total Protein 9.5 Albumin 4.1 Calcium Level 8.1 Alkaline Phosphatase 99 Aspartate Amino Transf (AST/SGOT) 1422 Alanine Aminotransferase (ALT/SGPT) 250 Total Bilirubin 0.4 Sodium Level 133 Potassium Level 5.7 Chloride Level 100 Carbon Dioxide Level 17.9 Anion Gap 15 Estimat Glomerular Filtration Rate 22 Total Creatine Kinase 40183 Creatine Kinase MB 481.4 Creatine Kinase MB % 0.7 Troponin I 11.20 Lactic Acid Level 2.3 Date/Time Source Procedure Growth Status 10/20/17 11:50 Blood Peripheral Aerobic Blood Culture Pending Received 10/20/17 11:50 Blood Peripheral Anaerobic Blood Culture Pending Received Result Diagram: 10/20/17 1150 10/20/17 1150 Imaging Last Impressions Head CT 10/20/17 1136 Signed Impressions: Service Date/Time: Friday, October 20, 2017 12:01 - CONCLUSION: Negative for an acute process. Renaldo Erickson MD FACR Chest X-Ray 10/20/17 1136 Signed Impressions: Service Date/Time: Friday, October 20, 2017 11:54 - CONCLUSION: No acute disease. Renaldo Erickson MD FACR Cervical Spine CT 10/20/17 0000 Signed Impressions: Service Date/Time: Friday, October 20, 2017 12:01 - CONCLUSION: No acute bony injury of the cervical spine Kendell Aguilar MD Caprini VTE Risk Assessment Caprini VTE Risk Assessment: Mod/High Risk (score >= 2) Caprini Risk Assessment Model Point Value = 1 Point Value = 2 Point Value = 3 Point Value = 5 Age 41-60 Minor surgery BMI > 25 kg/m2 Swollen legs Varicose veins or History of unexplained or recurrent spontaneous Oral contraceptives or hormone replacement Sepsis (< 1 month) Serious lung disease, including pneumonia (< 1 month) Abnormal pulmonary function Acute myocardial infarction Congestive heart failure (< 1 month) History of inflammatory bowel disease Medical patient at bed rest Age 61-74 Arthroscopic surgery Major open surgery (> 45 min) Laparoscopic surgery (> 45 min) Malignancy Confined to bed (> 72 hours) Immobilizing plaster cast Central venous access Age >= 75 History of VTE Family history of VTE Factor V Leiden Prothrombin [id number] Lupus anticoagulant Anticardiolipin antibodies Elevated serum homocysteine Heparin-induced thrombocytopenia Other congenital or acquired thrombophilia Stroke (< 1 month) Elective arthroplasty Hip, pelvis, or leg fracture Acute spinal cord injury (< 1 month) Prophylaxis Regimen Total Risk Factor Score Risk Level Prophylaxis Regimen 0-1 Low Early ambulation 2 Moderate Order ONE of the following: *Sequential Compression Device (SCD) *Heparin 5000 units SQ BID 3-4 Higher Order ONE of the following medications: *Heparin 5000 units SQ TID *Enoxaparin/Lovenox 40 mg SQ daily (WT < 150 kg, CrCl > 30 mL/min) *Enoxaparin/Lovenox 30 mg SQ daily (WT < 150 kg, CrCl > 10-29 mL/min) *Enoxaparin/Lovenox 30 mg SQ BID (WT < 150 kg, CrCl > 30 mL/min) AND/OR *Sequential Compression Device (SCD) 5 or more Highest Order ONE of the following medications: *Heparin 5000 units SQ TID (Preferred with Epidurals) *Enoxaparin/Lovenox 40 mg SQ daily (WT < 150 kg, CrCl > 30 mL/min) *Enoxaparin/Lovenox 30 mg SQ daily (WT < 150 kg, CrCl > 10-29 mL/min) *Enoxaparin/Lovenox 30 mg SQ BID (WT < 150 kg, CrCl > 30 mL/min) AND *Sequential Compression Device (SCD) Assessment and Plan Problem List: (1) Rhabdomyolysis ICD Codes: M62.82 - Rhabdomyolysis Status: Acute Plan: Rhabdomyolysis, likely cocaine induced Acute renal failure, secondary to rhabdomyolysis Hyperkalemia Elevated LFTs, likely related to rhabdo IVDA - Pt is a 37 y/o WM with history of polysubstance abuse/IVDA, hx of rhabdomyolysis, nephrolithiasis and had lithotripsy in August 2017 and Hepatitis C. - Pt presented to the ED at [facility] on 10/20/17 with complaints of LE weakness and feeling unwell. He that he injected heroin and cocaine into his arm yesterday and then he woke up around 330AM this morning on the floor and felt like he couldn't move his legs. - Pt has had a few episodes of vomiting today and feels that he has severe weakness in his legs and a pins and needles sensation. - He had urinated a small amount of dark urine today. - Labs at admission revealed total CK 68,160, CK-MB 481.4, Cr 3.22/BUN 25, potassium 5.7 and Troponin 11.20. - Blood cultures were drawn in the ED and are pending. - Pt has received 2L of IV NS in the ED so far. - Recheck BMP, CK, CK-MB and troponin at 1800 this evening and in AM - Continue aggressive IVF hydration - Encourage oral intake - Telemetry - If renal function does not recover then we will need to consult Nephrology - Discussed importance of cessation of IVDA - Supportive care - DVT prophylaxis with Heparin SQ Q12H (2) Acute renal failure due to rhabdomyolysis ICD Codes: N17.9 - Acute kidney failure, unspecified; M62.82 - Rhabdomyolysis Status: Acute (3) IVDU (intravenous drug user) ICD Codes: F19.90 - Other psychoactive substance use, unspecified, uncomplicated Status: Chronic (4) Acute hyperkalemia ICD Codes: E87.5 - Hyperkalemia Status: Acute (5) Dehydration ICD Codes: E86.0 - Dehydration Status: Acute Discussed Condition With Patient examined. Assessment and plan formulated with Nicky Cuevas PA-C. I agree with the above. cocaine and heroin injection cocaine rhabdomyolysis margarita due to severe rhabdo acute lower ext weakness/felt related to rhabdo pt has no cp and not felt to have ACS. monitor for sx's aggressive IVF. if cr not improving will need to consult renal Physician Certification 2 Midnight Certification Type: Admission for Inpatient Services Order for Inpatient Services The services are ordered in accordance with Medicare regulations or non- Medicare payer requirements, as applicable. In the case of services not specified as inpatient-only, they are appropriately provided as inpatient services in accordance with the 2-midnight benchmark. Estimated LOS (days): 3 3 days is the estimated time the patient will need to remain in the hospital, assuming treatment plan goals are met and no additional complications. Post-Hospital Plan: Not yet determined Problem Qualifiers (1) Rhabdomyolysis: Nicky Cuevas Oct 20, 2017 16:20 Javier Le MD Oct 20, 2017 17:39
[2017-10-20] MEDS ORDERED: ONDANSETRON HCL 4 MG/2 ML VIAL IV PRN (16:30)
[2017-10-20] MEDS ORDERED: SODIUM CHLOR 0.9% 1000 ML INJ 1,000 ML IV SCH (16:30)
[2017-10-20] MEDS ORDERED: ACETAMINOPHEN 325 MG TAB PO PRN (16:30)
[2017-10-20 18:59] VITALS: BP 136/90; PULSE 99; RESP 16; TEMP 98.6; O2SAT 100
[2017-10-20] MEDS ORDERED: HEPARIN SODIUM - IV 10,000 UNITS/10 ML VIAL IV PUSH PRN ×2 (19:45)
[2017-10-20 20:00] VITALS: BP 130/77; PULSE 96; RESP 16; TEMP 98.8; O2SAT 99
[2017-10-20] MEDS: HEPARIN SODIUM - SQ 10,000 UNITS/ML VIAL SQ SCH (22:01)
[2017-10-21] VITALS (22 sets, daily range): BP systolic 121–141; BP diastolic 82–98; PULSE 87–102; RESP 18–20; TEMP 97.9–98.8; O2SAT 95–100
[2017-10-21 01:32] LABS: BICARBONATE 19.2 MEQ/L (21.0-32.0); CALCIUM 7.1 MG/DL (8.5-10.1); CREATININE 3.5 MG/DL (0.60-1.30)
[2017-10-21 02:09] LABS: TOTAL PROTEIN 7.3 GM/DL (6.4-8.2)
[2017-10-21 03:08] LABS: CALCIUM-PROTEIN CORRECTED 7.1 MG/DL (8.5-10.1)
[2017-10-21 06:58] LABS: AUTOMATED NEUTROPHIL # 7.5 TH/MM3 (1.8-7.7); BASOPHIL % 0.2 % (0.0-2.0); EOSINOPHIL % 0.3 % (0.0-4.0); HEMATOCRIT 41.6 % (39.0-51.0); HEMOGLOBIN 14.3 GM/DL (13.0-17.0); LYMPH % 13.3 % (9.0-44.0); LYMPHOCYTE # 1.3 TH/MM3 (1.0-4.8); MEAN CELL VOLUME 80.9 FL (80.0-100.0); MEAN CORPUSCULAR HEMOGLOBIN 27.8 PG (27.0-34.0); MEAN CORPUSCULAR HGB CONC 34.4 % (32.0-36.0); MEAN PLATELET VOLUME 7.3 FL (7.0-11.0); MONOCYTE # 1.2 TH/MM3 (0-0.9); NEUT % 74.2 % (16.0-70.0); PLATELET COUNT 153 TH/MM3 (150-450); RED BLOOD COUNT 5.15 MIL/MM3 (4.50-5.90); RED CELL DISTRIBUTION WIDTH 15.3 % (11.6-17.2); WHITE BLOOD COUNT 10.1 TH/MM3 (4.0-11.0)
[2017-10-21 07:48] LABS: ALBUMIN 2.9 GM/DL (3.4-5.0); BICARBONATE 16.8 MEQ/L (21.0-32.0); CALCIUM 7.3 MG/DL (8.5-10.1); CREATININE 3.9 MG/DL (0.60-1.30); TOTAL BILIRUBIN ADULT 0.4 MG/DL (0.2-1.0)
[2017-10-21 07:56] LABS: CALCIUM-PROTEIN CORRECTED 7.4 MG/DL (8.5-10.1); TROPONIN I 25.1 NG/ML (0.02-0.05)
--- NOTE | 2017-10-21 08:25 | HHI.PR ---
Subjective Remarks no cp or sob muscle aches feet are hard to move. some vomiting overnight. Objective Vitals oriented nad heart reg lung cta abd s/nt ext no pitting feet plantar flexed and minimal mvmt can wiggle toes able to flex/extend hips/knees Vital Signs Date Time Temp Pulse Resp B/P (MAP) Pulse Ox O2 Delivery O2 Flow Rate FiO2 10/21/17 05:00 92 10/21/17 04:00 101 10/21/17 04:00 98.2 90 18 121/82 (95) 95 10/21/17 03:00 95 10/21/17 00:00 98.8 89 18 123/82 (96) 100 10/20/17 20:00 98.8 96 16 130/77 (94) 99 10/20/17 20:00 96 10/20/17 18:59 98.6 99 16 136/90 (105) 100 10/20/17 13:23 93 17 109/60 (76) 95 10/20/17 11:35 98.1 99 17 108/70 (83) 96 Result Diagram: 10/21/17 0616 10/21/17 0616 Imaging Last Impressions Head CT 10/20/17 1136 Signed Impressions: Service Date/Time: Friday, October 20, 2017 12:01 - CONCLUSION: Negative for an acute process. Renaldo Erickson MD FACR Chest X-Ray 10/20/17 1136 Signed Impressions: Service Date/Time: Friday, October 20, 2017 11:54 - CONCLUSION: No acute disease. Renaldo Erickson MD FACR Cervical Spine CT 10/20/17 0000 Signed Impressions: Service Date/Time: Friday, October 20, 2017 12:01 - CONCLUSION: No acute bony injury of the cervical spine Kendell Aguilar MD A/P Problem List: (1) Rhabdomyolysis ICD Codes: M62.82 - Rhabdomyolysis Status: Acute Plan: Rhabdomyolysis, likely cocaine induced Acute renal failure, secondary to rhabdomyolysis Hyperkalemia Elevated LFTs and troponin. felt related to rhabdo IVDA HEP C - Pt is a 37 y/o WM with history of polysubstance abuse/IVDA, hx of rhabdomyolysis, nephrolithiasis and had lithotripsy in August 2017 and Hepatitis C. - Pt presented to the ED at [facility] on 10/20/17 with complaints of LE weakness and feeling unwell. He that he injected heroin and cocaine into his arm yesterday and then he woke up around 330AM this morning on the floor and felt like he couldn't move his legs. - Pt has had a few episodes of vomiting and feels that he has severe weakness in his legs and a pins and needles sensation. - Labs at admission revealed total CK 68,160, CK-MB 481.4, Cr 3.22/BUN 25, potassium 5.7 and Troponin 11.20. - Blood cultures were drawn in the ED and are pending. - Pt making minimal urine overnight. cr rising. ck still rising to 110k -will place adams. cont ivf, dose iv lasix.. consult nephrology -small dose prn pain medication -dvt prophylaxis -PT consultation (2) Acute renal failure due to rhabdomyolysis ICD Codes: N17.9 - Acute kidney failure, unspecified; M62.82 - Rhabdomyolysis Status: Acute (3) IVDU (intravenous drug user) ICD Codes: F19.90 - Other psychoactive substance use, unspecified, uncomplicated Status: Chronic (4) Acute hyperkalemia ICD Codes: E87.5 - Hyperkalemia Status: Acute (5) Dehydration ICD Codes: E86.0 - Dehydration Status: Acute (6) Hepatitis C ICD Codes: B19.20 - Unspecified viral hepatitis C without hepatic coma Status: Chronic Problem Qualifiers (1) Rhabdomyolysis: Javier Le MD Oct 21, 2017 08:25
[2017-10-21] MEDS ORDERED: FUROSEMIDE 40 MG/4 ML VIAL IV PUSH ONE (08:30)
[2017-10-21] MEDS: CALCIUM CARBONATE 500 MG CHEWABLE TAB CHEW SCH ×2 (09:00→22:12)
[2017-10-21] MEDS: HEPARIN SODIUM - SQ 10,000 UNITS/ML VIAL SQ SCH ×2 (09:00→22:12)
--- NOTE | 2017-10-21 11:40 | PD.CONS ---
[facility] Service Nephrology Consult Requested By Mimi Reason for Consult Acute Renal Failure Primary Care Physician Renaldo Villalba, DO History of Present Illness This is a 37 y/o male who has normal renal function at baseline. Creatinine was 1 in August. At that time he had outpatient lithotripsy with Dr. Bernstein, he is unsure of the type of stones that he has. He also has a hx of untreated Hepatitis C and IVDA. Normally uses Dilaudid IV, could not obtain it therefore he used Heroin IV. He injected at approximately 6pm Wednesday evening. The next thing he remembers waking up on the floor at 3am Wed and was unable to use his legs, has profound weakness, therefore called 911 to be brought in. On arrival he is in renal failure with a creatinine of 3.2 that has increased and is 3.9 today. He is also in rhabdomyolysis with CPK that is increasing, was 68K now 112K. His troponin is elevating as well and is over 25 today. CO2 is 16.8, also noted to be hypocalcemic with PCC 7.4. His potassium was 5.7 but has corrected. He is on NS@ 125 cc/hr. On exam he is awake and alert. Has persistent weakness to bilateral legs with diminished sensation. Urine output is marginal, he states he is having difficultly voiding. Imaging has not been obtained, we were consulted to assist with management. (Merly Moran) Review of Systems Constitutional: DENIES: Weight loss Musculoskeletal: DENIES: Joint pain Neurologic: COMPLAINS OF: Abnormal gait, Localized weakness, Poor Balance ( Merly Moran) Past Family Social History Allergies: Coded Allergies: No Known Allergies (Verified Allergy, Unknown, 10/20/17) Past Medical History IVDA Hepatitis C, treatment naive Depression/Anxiety Insomnia Nephrolithiasis Hx of rhabdomyolysis in 2015 Past Surgical History Lithotripsy Aug 2017 Reported Medications Trazodone (Trazodone HCl) 100 Mg Tablet 200 Mg PO HS Ativan (Lorazepam) 1 Mg Tab 1 Mg PO BID PRN Cymbalta DR (Duloxetine HCl) 60 Mg Capdr 60 Mg PO DAILY Active Ordered Medications Current Medications Medications (Trade) Dose Ordered Sig/Khari Route Start Time Stop Time Status Last Admin (Tylenol) 650 mg Q4H PRN PO 10/20/17 16:30 (Zofran Inj) 4 mg Q6H PRN IV 10/20/17 16:30 10/20/17 17:20 (Heparin Inj) 5,000 units Q12HR SQ 10/20/17 21:00 10/20/17 22:01 (Tums Chew) 1,000 mg BID CHEW 10/21/17 09:00 (Roxicodone) 5 mg Q4H PRN PO 10/21/17 08:30 10/21/17 09:13 Sodium Chloride 38.5 meq/Sodium Bicarbonate 100 meq/Sterile Water 1,109.625 ml @ 125 mls/hr [id number] IV 10/21/17 11:00 Family History Non contributory Social History Non smoker No ETOH Uses IV Dilaudid frequently, admits to IV heroin use recently. He reports using once per week. single, lives alone Employed as a compliance professional (Merly Moran) Physical Exam Vital Signs Vital Signs Date Time Temp Pulse Resp B/P (MAP) Pulse Ox O2 Delivery O2 Flow Rate FiO2 10/21/17 05:00 92 10/21/17 04:00 101 10/21/17 04:00 98.2 90 18 121/82 (95) 95 10/21/17 03:00 95 10/21/17 00:00 98.8 89 18 123/82 (96) 100 10/20/17 20:00 98.8 96 16 130/77 (94) 99 10/20/17 20:00 96 10/20/17 18:59 98.6 99 16 136/90 (105) 100 10/20/17 13:23 93 17 109/60 (76) 95 10/20/17 11:35 98.1 99 17 108/70 (83) 96 Physical Exam Young male Awake/alert, follows commands S1/S2, RRR no murmurs lungs clear Abd soft, NT/ND Ext no edema 3/5 strength to feet/legs Laboratory Laboratory Tests Test 10/20/17 11:50 10/20/17 11:58 10/20/17 15:00 10/20/17 15:25 White Blood Count 18.3 Red Blood Count 6.36 Hemoglobin 17.4 Hematocrit 51.8 Mean Corpuscular Volume 81.5 Mean Corpuscular Hemoglobin 27.3 Mean Corpuscular Hemoglobin Concent 33.6 Red Cell Distribution Width 15.7 Platelet Count 274 Mean Platelet Volume 6.9 Neutrophils (%) (Auto) 78.2 Lymphocytes (%) (Auto) 7.3 Monocytes (%) (Auto) 14.2 Eosinophils (%) (Auto) 0.0 Basophils (%) (Auto) 0.3 Neutrophils # (Auto) 14.3 Lymphocytes # (Auto) 1.3 Monocytes # (Auto) 2.6 Eosinophils # (Auto) 0.0 Basophils # (Auto) 0.0 CBC Comment AUTO DIFF Differential Total Cells Counted 100 Neutrophils % (Manual) 73 Band Neutrophils % 4 Lymphocytes % 9 Monocytes % 14 Neutrophils # (Manual) 14.1 Differential Comment FINAL DIFF MANUAL Platelet Estimate NORMAL Platelet Morphology Comment NORMAL Red Cell Morphology Comment NORMAL Prothrombin Time 10.7 Prothromb Time International Ratio 1.1 Activated Partial Thromboplast Time 32.4 Blood Urea Nitrogen 25 Creatinine 3.22 Random Glucose 99 Total Protein 9.5 Albumin 4.1 Calcium Level 8.1 Alkaline Phosphatase 99 Aspartate Amino Transf (AST/SGOT) 1422 Alanine Aminotransferase (ALT/SGPT) 250 Total Bilirubin 0.4 Sodium Level 133 Potassium Level 5.7 Chloride Level 100 Carbon Dioxide Level 17.9 Anion Gap 15 Estimat Glomerular Filtration Rate 22 Total Creatine Kinase 44763 Creatine Kinase MB 481.4 Creatine Kinase MB % 0.7 Troponin I 11.20 Lactic Acid Level 2.3 2.1 Urine Color RED Urine Turbidity HAZY Urine pH 5.5 Urine Specific [place] 1.020 Urine Protein 100 Urine Glucose (UA) NEG Urine Ketones TRACE Urine Occult Blood LARGE Urine Nitrite NEG Urine Bilirubin NEG Urine Urobilinogen LESS THAN 2.0 Urine Leukocyte Esterase TRACE Urine Squamous Epithelial Cells 3 Urine Calcium Oxalate Crystals OCC Urine Amorphous Sediment RARE Microscopic Urinalysis Comment CATH-CULT NOT IND Test 10/21/17 00:00 10/21/17 06:16 Blood Urea Nitrogen 34 37 Creatinine 3.50 3.90 Random Glucose 101 105 Total Protein 7.3 7.0 Calcium Level 7.1 7.3 Sodium Level 134 131 Potassium Level 4.5 4.0 Chloride Level 102 101 Carbon Dioxide Level 19.2 16.8 Anion Gap 13 13 Estimat Glomerular Filtration Rate 20 18 Protein Corrected Calcium 7.1 7.4 Total Creatine Kinase 248743 385237 Creatine Kinase MB 601.0 556.4 Creatine Kinase MB % 0.5 0.5 Troponin I 26.00 25.10 White Blood Count 10.1 Red Blood Count 5.15 Hemoglobin 14.3 Hematocrit 41.6 Mean Corpuscular Volume 80.9 Mean Corpuscular Hemoglobin 27.8 Mean Corpuscular Hemoglobin Concent 34.4 Red Cell Distribution Width 15.3 Platelet Count 153 Mean Platelet Volume 7.3 Neutrophils (%) (Auto) 74.2 Lymphocytes (%) (Auto) 13.3 Monocytes (%) (Auto) 12.0 Eosinophils (%) (Auto) 0.3 Basophils (%) (Auto) 0.2 Neutrophils # (Auto) 7.5 Lymphocytes # (Auto) 1.3 Monocytes # (Auto) 1.2 Eosinophils # (Auto) 0.0 Basophils # (Auto) 0.0 CBC Comment DIFF FINAL Differential Comment Albumin 2.9 Alkaline Phosphatase 74 Aspartate Amino Transf (AST/SGOT) 1933 Alanine Aminotransferase (ALT/SGPT) 369 Total Bilirubin 0.4 Date/Time Source Procedure Growth Status 10/20/17 11:50 Blood Peripheral Aerobic Blood Culture - Preliminary NO GROWTH IN 1 DAY Resulted 10/20/17 11:50 Blood Peripheral Anaerobic Blood Culture - Preliminary NO GROWTH IN 1 DAY Resulted (Merly Moran) Result Diagram: 10/21/17 0616 10/21/17 0616 Imaging Last [address] 10/20/17 1136 Signed Impressions: Service Date/Time: Friday, October 20, 2017 12:01 - CONCLUSION: Negative for an acute process. Renaldo Erickson MD FACR Chest X-Ray 10/20/17 1136 Signed Impressions: Service Date/Time: Friday, October 20, 2017 11:54 - CONCLUSION: No acute disease. Renaldo Erickson MD FACR Cervical Spine CT 10/20/17 0000 Signed Impressions: Service Date/Time: Friday, October 20, 2017 12:01 - CONCLUSION: No acute bony injury of the cervical spine Kendell Aguilar MD (Merly Moran) Assessment and Plan Problem List: (1) Acute renal failure (ARF) ICD Codes: N17.9 - Acute kidney failure, unspecified Status: Acute Plan: Baseline creatinine of 1 VIVIAN due to rhabdomyolysis, possibly also intravascular volume depletion Renal function is declining Pending renal US and Mcleod placement, monitor urine output UA showing blood, calcium oxalate crystals, recent renal stones with lithotripsy outpatient If he continues to decline, he may require hemodialysis support Has metabolic acidosis, change IVF to 1/4 NS with 100 mEq at 125 cc/hr Repeat labs daily, avoid nephrotoxic agents. (2) Rhabdomyolysis ICD Codes: M62.82 - Rhabdomyolysis Status: Acute Plan: s/p fall, ? seizure, he had down time of 9 hrs approximately Serial CPK monitoring Aggressive fluid resuscitation Monitor renal function (3) Hyperkalemia ICD Codes: E87.5 - Hyperkalemia Plan: Due to reduction in GFR Improved, monitor for recurrence Continue bicarb gtt (4) Hypocalcemia ICD Codes: E83.51 - Hypocalcemia Plan: Check 25 hydroxy level and iPTH. (5) IVDU (intravenous drug user) ICD Codes: F19.90 - Other psychoactive substance use, unspecified, uncomplicated Status: Chronic Plan: Discussed cessation Avoid narcotic use (6) Hepatitis C ICD Codes: B19.20 - Unspecified viral hepatitis C without hepatic coma Status: Chronic Plan: Untreated (Merly Moran) Assessment and Plan patient was seen and examined. VIVIAN likely due to rhabdomyolysis and ATN. Continue bicarbonate drip. May need dialysis. Consider cardiology evaluation, Troponin is unusually high. History of IVDA. (Jacek Garcia MD) Problem Qualifiers (1) Acute renal failure (ARF): Qualified Codes: N17.9 - Acute kidney failure, unspecified Merly Moran Oct 21, 2017 11:40 Jacek Garcia MD Oct 21, 2017 15:28
[2017-10-21] MEDS: SODIUM CHLORIDE 23.4% INJ 38.5 MEQ, SODIUM BICARBONATE 8.4% INJ 100 MEQ in WATER STERIL... IV SCH ×2 (11:44→23:03)
[2017-10-21] MEDS ORDERED: LORazepam 1 MG TAB PO ONE (14:00)
[2017-10-21] MEDS ORDERED: DULoxetine HCl DR 60 MG CAP PO ONE (14:00)
--- NOTE | 2017-10-21 14:48 | RADRPT ---
EXAM DATE/TIME: 10/21/2017 11:21 [place] COMPARISON: CT ABDOMEN & PELVIS W/O CONTRAST, July 31, 2017, 0:41. INDICATIONS : Increased BUN/creatinine MEDICAL HISTORY : Gastroesophageal reflux disease. Hepatitis C. Chronic back pain, polysubstance abuse, rhabdomyolysi s. SURGICAL HISTORY : Lithotripsy. ENCOUNTER: Initial ACUITY: 2 days PAIN SCORE: 0/10 LOCATION: Bilateral flank MEASUREMENTS: RIGHT KIDNEY: 14.7 x 7.1 x 7.0 cm LEFT KIDNEY: 15.3 x 6.5 x 6.7 cm FINDINGS: RIGHT KIDNEY: Renal cortex is normal in thickness and echotexture. Very mild pelviectasis. No stone or mass. LEFT KIDNEY: Renal cortex is normal in thickness and echotexture. Small 9 x 8 x 8 mm cyst in the inferior pole of the left kidney. No hydronephrosis, stone, or mass. BLADDER: Decompressed secondary to Mcleod catheter. CONCLUSION: 1. Minimal right sided pelviectasis which may be residual in this patient with history of recent righ t hydronephrosis. 2. Otherwise, no evidence for obstructive uropathy. 3. Subcentimeter cyst in the inferior pole of the left kidney. Salvatore Laurent MD on October 21, 2017 at 14:41 Board Certified Radiologist. This report was verified electronically.
[2017-10-21] MEDS ORDERED: VANCOMYCIN INJ 1,000 MG in SODIUM CHLOR 0.9% 250 ML INJ 250 ML IV ONE ×2 (18:00→19:15)
[2017-10-21] MEDS: traZODone HCL 100 MG TAB PO SCH (22:12)
[2017-10-21] MEDS: LORazepam 1 MG TAB PO SCH (22:12)
[2017-10-22] VITALS (15 sets, daily range): BP systolic 127–143; BP diastolic 82–98; PULSE 77–92; RESP 18–20; TEMP 97.6–98.7; O2SAT 97–100
--- NOTE | 2017-10-22 07:56 | HHI.PR ---
Subjective Remarks pt feet/legs stronger. no vomiting overnight eating better. nursing reports to hi 500ml urine on overnight shift Objective Vitals heart reg lung cta abd s/nt ext no pitting able to flex ext hip/knees/ankles with improvement Vital Signs Date Time Temp Pulse Resp B/P (MAP) Pulse Ox O2 Delivery O2 Flow Rate FiO2 10/22/17 06:00 84 10/22/17 05:00 98.7 82 18 142/95 (111) 100 10/22/17 05:00 84 10/22/17 01:00 90 10/22/17 00:00 98.7 87 18 141/98 (112) 100 10/21/17 20:00 98.7 87 18 141/98 (112) 100 10/21/17 17:00 98 10/21/17 16:00 92 10/21/17 15:30 92 10/21/17 15:30 98.8 92 20 133/87 (102) 98 10/21/17 15:00 98 10/21/17 14:00 94 10/21/17 13:00 102 10/21/17 12:50 97.9 91 18 129/83 (98) 98 10/21/17 12:50 91 10/21/17 12:00 98 10/21/17 11:00 92 10/21/17 10:00 102 10/21/17 09:00 96 10/21/17 08:00 90 Result Diagram: 10/21/17 0616 10/21/17 0616 Imaging Last Impressions Head CT 10/20/17 1136 Signed Impressions: Service Date/Time: Friday, October 20, 2017 12:01 - CONCLUSION: Negative for an acute process. Renaldo Erickson MD FACR Chest X-Ray 10/20/17 1136 Signed Impressions: Service Date/Time: Friday, October 20, 2017 11:54 - CONCLUSION: No acute disease. Renaldo Erickson MD FACR Cervical Spine CT 10/20/17 0000 Signed Impressions: Service Date/Time: Friday, October 20, 2017 12:01 - CONCLUSION: No acute bony injury of the cervical spine Kendell Aguilar MD A/P Problem List: (1) Rhabdomyolysis ICD Codes: M62.82 - Rhabdomyolysis Status: Acute Plan: Rhabdomyolysis, likely cocaine induced Acute renal failure, secondary to rhabdomyolysis Hyperkalemia Elevated LFTs and troponin. felt related to rhabdo IVDA HEP C 2/4 gpc blood cx's - Pt is a 37 y/o WM with history of polysubstance abuse/IVDA, hx of rhabdomyolysis, nephrolithiasis and had lithotripsy in August 2017 and Hepatitis C. - Pt presented to the ED at [facility] [place], [place] on 10/20/17 with complaints of LE weakness and feeling unwell. He that he injected heroin and cocaine into his arm yesterday and then he woke up around 330AM this morning on the floor and felt like he couldn't move his legs. - Pt has had a few episodes of vomiting and feels that he has severe weakness in his legs and a pins and needles sensation. - Labs at admission revealed total CK 68,160, CK-MB 481.4, Cr 3.22/BUN 25, potassium 5.7 and Troponin 11.20. - Blood cultures were drawn in the ED and show 2/4 gpc..given vanco and rocephin in ED. pt without f/c and doesn't clinically look septic. repeat blood cx takes 10/21 and ID consulted. 2d echo pending. ?aggie if felt to be true infection. - cont ivf and adams. labs today are pending. - renal following. - small dose prn pain medication -dvt prophylaxis -PT consultation (2) Acute renal failure due to rhabdomyolysis ICD Codes: N17.9 - Acute kidney failure, unspecified; M62.82 - Rhabdomyolysis Status: Acute (3) IVDU (intravenous drug user) ICD Codes: F19.90 - Other psychoactive substance use, unspecified, uncomplicated Status: Chronic (4) Acute hyperkalemia ICD Codes: E87.5 - Hyperkalemia Status: Acute (5) Dehydration ICD Codes: E86.0 - Dehydration Status: Acute (6) Hepatitis C ICD Codes: B19.20 - Unspecified viral hepatitis C without hepatic coma Status: Chronic Problem Qualifiers (1) Rhabdomyolysis: Javier Le MD Oct 22, 2017 07:56
[2017-10-22] MEDS: CALCIUM CARBONATE 500 MG CHEWABLE TAB CHEW SCH ×2 (08:36→20:46)
[2017-10-22] MEDS: DULoxetine HCl DR 60 MG CAP PO SCH (08:36)
[2017-10-22] MEDS: LORazepam 1 MG TAB PO SCH ×2 (08:36→20:47)
[2017-10-22] MEDS: HEPARIN SODIUM - SQ 10,000 UNITS/ML VIAL SQ SCH ×2 (08:36→20:47)
[2017-10-22] MEDS: SODIUM CHLORIDE 23.4% INJ 38.5 MEQ, SODIUM BICARBONATE 8.4% INJ 100 MEQ in WATER STERIL... IV SCH ×3 (09:50→20:47)
[2017-10-22] MEDS: CHOLECALCIFEROL (VIT D3) 5000 UNIT CAP PO SCH (10:00)
--- NOTE | 2017-10-22 10:38 | HHI.NPPN ---
Subjective Renal Failure: Acute Interval History He is awake, eating breakfast. Renal panel is in process. He has made 1 liter of urine in past 24 hrs. His blood cultures came back positive for GP cocci. ID has been consulted. Leg weakness is improving. (Merly Moran) Review of Systems General Constitutional: Fatigue (Merly Moran) Neuro Neuro Remarks pedal weakness bilaterally (Meryl Moran) Objective Data Data Vital Signs Date Time Temp Pulse Resp B/P (MAP) Pulse Ox O2 Delivery O2 Flow Rate FiO2 10/22/17 08:00 97.6 77 18 134/87 (103) 100 10/22/17 06:00 84 10/22/17 05:00 98.7 82 18 142/95 (111) 100 10/22/17 05:00 84 10/22/17 04:00 86 10/22/17 03:00 80 10/22/17 02:00 86 10/22/17 01:00 90 10/22/17 00:00 98.7 87 18 141/98 (112) 100 10/22/17 00:00 92 10/21/17 23:00 96 10/21/17 22:00 90 10/21/17 21:00 92 10/21/17 20:00 98.7 87 18 141/98 (112) 100 10/21/17 20:00 94 10/21/17 19:00 92 10/21/17 17:00 98 10/21/17 16:00 92 10/21/17 15:30 92 10/21/17 15:30 98.8 92 20 133/87 (102) 98 10/21/17 15:00 98 10/21/17 14:00 94 10/21/17 13:00 102 10/21/17 12:50 97.9 91 18 129/83 (98) 98 10/21/17 12:50 91 10/21/17 12:00 98 10/21/17 11:00 92 (Merly Moran) -: 10/21/17 0616 10/21/17 0616 Microbiology 10/21/17 Aerobic Blood Culture, Received Pending 10/21/17 Anaerobic Blood Culture, Received Pending 10/21/17 Aerobic Blood Culture, Received Pending 10/21/17 Anaerobic Blood Culture, Received Pending Imaging Last 72 hours Impressions Renal Ultrasound 10/21/17 0000 Signed Impressions: Service Date/Time: September 11:21 - CONCLUSION: 1. Minimal right sided pelviectasis which may be residual in this patient with history of recent right hydronephrosis. 2. Otherwise, no evidence for obstructive uropathy. 3. Subcentimeter cyst in the inferior pole of the left kidney. Salvatore Laurent MD Head CT 10/20/17 1136 Signed Impressions: Service Date/Time: Friday, October 20, 2017 12:01 - CONCLUSION: Negative for an acute process. Renaldo Erickson MD FACR Chest X-Ray 10/20/17 1136 Signed Impressions: Service Date/Time: Friday, October 20, 2017 11:54 - CONCLUSION: No acute disease. Renaldo Erickson MD FACR Cervical Spine CT 10/20/17 0000 Signed Impressions: Service Date/Time: Friday, October 20, 2017 12:01 - CONCLUSION: No acute bony injury of the cervical spine Kendell Aguilar MD Tubes & Lines: Adams (Merly Moran B. TRINA) Physical Exam General Appearance: Well Developed, No Acute Distress, Comfortable (Merly Moran B. FINGERPRINT TECHNICIAN) Eyes Eye Exam: Pupils Equal, Pupils Reactive (Jeramie Moranon B. FINGERPRINT TECHNICIAN) Neck Neck Exam: Neck Supple (DeanMerly B. FINGERPRINT TECHNICIAN) Pulmonary Resp Exam: Clear Bilaterally, Breath Sounds Equal (DeanMerly B. FINGERPRINT TECHNICIAN) Cardiology CV Exam: Regular, Normal Sinus Rhythm, Good Perfusion (Merly Moran B. FINGERPRINT TECHNICIAN) Gastrointestinal/Abdomen GI Exam: Soft, Non-Tender, Bowel Sounds Present (Merly Moran B. FINGERPRINT TECHNICIAN) Musculoskeletal MS Exam: Joints Intact, Normal Tone (Merly Moran B. FINGERPRINT TECHNICIAN) Integumentary Skin Exam: Warm, Dry, Intact (Merly Moran B. FINGERPRINT TECHNICIAN) Extremeties Extremities Exam: No Edema, Pedal Pulses Palpable (Merly Moran B. FINGERPRINT TECHNICIAN) Neurologic Neuro Exam: Alert, Awake, Oriented, Speech Clear (Merly Moran B. FINGERPRINT TECHNICIAN) Psychiatric Psych Exam: Appropriate Responses (Merly Moran) Assessment/Plan Discussed Condition With: Patient Assessment Summary: VIVIAN/Acute Renal Failure, Vitamin D Defeciency Electrolyte Assessment: Hypocalcemia, Metabolic Acidosis Problem List: (1) Acute renal failure (ARF) ICD Codes: N17.9 - Acute kidney failure, unspecified Status: Acute Plan: Baseline creatinine of 1 VIVIAN due to rhabdomyolysis and now sepsis; most likely has progressed to ATN Pending repeat renal panel CT abdomen/pelvis is pending to further evaluate; he recently had hydronephrosis due to renal stone He is non oliguric s/p adams placement UA showing blood, calcium oxalate crystals, recent renal stones with lithotripsy outpatient If his renal function declines, he may require hemodialysis support Has metabolic acidosis, continue bicarb gtt @ 125 cc/hr Repeat labs daily, avoid nephrotoxic agents. (2) Rhabdomyolysis ICD Codes: M62.82 - Rhabdomyolysis Status: Acute Plan: s/p fall, ? seizure, he had down time of 9 hrs approximately Serial CPK monitoring, improving Aggressive fluid resuscitation Monitor renal function (3) Sepsis ICD Codes: A41.9 - Sepsis, unspecified organism Plan: + GPC, he admits to using dirty needles ID has been consulted Echo ordered to evaluate for endocarditis Given vancomycin, dose appropriate to renal status, follow drug levels (4) Hypocalcemia ICD Codes: E83.51 - Hypocalcemia Plan: Severe vitamin D deficiency, ordered 5000 units per day PTH is appropriately elevated (5) IVDU (intravenous drug user) ICD Codes: F19.90 - Other psychoactive substance use, unspecified, uncomplicated Status: Chronic Plan: Discussed cessation Avoid narcotic use (6) Hyperkalemia ICD Codes: E87.5 - Hyperkalemia Plan: Due to reduction in GFR Corrected, monitor for recurrence Continue bicarb gtt (7) Hepatitis C ICD Codes: B19.20 - Unspecified viral hepatitis C without hepatic coma Status: Chronic Plan: Untreated (Merly Moran) Plan patient was seen and examined. VIVIAN is worse, patient with rhabdomyolysis. Staph epi sepsis? Obtain complement levels. Non oliguric. May need dialysis. (Jacek Garcia MD) Problem Qualifiers (1) Acute renal failure (ARF): Qualified Codes: N17.9 - Acute kidney failure, unspecified Merly Moran Oct 22, 2017 10:38 Jacek Garcia MD Oct 22, 2017 14:58
[2017-10-22 10:56] LABS: BICARBONATE 17.9 MEQ/L (21.0-32.0); CALCIUM 7.2 MG/DL (8.5-10.1); CREATININE 5.36 MG/DL (0.60-1.30)
[2017-10-22 11:10] LABS: CALCIUM-PROTEIN CORRECTED 7.7 MG/DL (8.5-10.1); TOTAL PROTEIN 6.2 GM/DL (6.4-8.2)
--- NOTE | 2017-10-22 14:02 | ECHRPT ---
Indication: Endocarditis CONCLUSIONS The left ventricular systolic function is normal with an estimated ejection fraction in the range of 55-60%. Left ventricular diastolic function parameters are normal. Trace mitral valve regurgitation. Mild aortic valve regurgitation. There is trace tricuspid valve regurgitation. Trivial pulmonary valve regurgitation. BP: 142 / 95 HR: 84 Rhythm: Sinus MEASUREMENTS (Male / Female) Normal Values Technical Quality:Fair 2D ECHO LV Diastolic Diameter PLAX 4.6 cm 4.2 - 5.9 / 3.9 - 5.3 cm LV Systolic Diameter PLAX 3.4 cm IVS Diastolic Thickness 1.1 cm 0.6 - 1.0 / 0.6 - 0.9 cm LVPW Diastolic Thickness 1.1 cm 0.6 - 1.0 / 0.6 - 0.9 cm LV Relative Wall Thickness 0.5 RV Internal Dim ED PLAX 4.4 cm LVOT Diameter 2.3 cm LA Systolic Diameter LX 4.0 cm 3.0 - 4.0 / 2.7 - 3.8 cm M-MODE Aortic Root Diameter MM 3.1 cm LA Systolic Diameter MM 4.4 cm LA Ao Ratio MM 1.4 AV Cusp Separation MM 2.4 cm DOPPLER AV Peak Velocity 130.0 cm/s AV Peak Gradient 6.8 mmHg AI Peak Velocity 370.5 cm/s AI Peak Gradient 54.9 mmHg AI Pressure Half Time 321.5 ms LVOT Peak Velocity 125.0 cm/s LVOT Peak Gradient 6.3 mmHg AV Area Cont Eq pk 4.0 cm MV Area PHT 2.8 cm Mitral E Point Velocity 74.8 cm/s Mitral A Point Velocity 49.4 cm/s Mitral E to A Ratio 1.5 LV E' Lateral Velocity 16.1 cm/s Mitral E to LV E' Lateral Ratio 4.6 LV E' Septal Velocity 11.2 cm/s Mitral E to LV E' Septal Ratio 6.7 FINDINGS LEFT VENTRICLE The left ventricular systolic function is normal with an estimated ejection fraction in the range of 55-60%. Wall thickness is normal. Normal left ventricular size. Left ventricular diastolic function parameters are normal. RIGHT VENTRICLE Normal right ventricular size and systolic function. LEFT ATRIUM The left atrial size is upper limits of normal. RIGHT ATRIUM The right atrial size is normal. ATRIAL SEPTUM Normal atrial septal thickness without atrial level shunting by limited color doppler interrogation. AORTA The aortic root and proximal ascending aorta are normal in size on limited imaging. MITRAL VALVE Structurally normal mitral valve. Trace mitral valve regurgitation. No mitral valve stenosis. AORTIC VALVE Trileaflet aortic valve. Mild aortic valve regurgitation. No aortic valve stenosis. TRICUSPID VALVE Structurally normal tricuspid valve. There is trace tricuspid valve regurgitation. No tricuspid valve stenosis. PULMONARY VALVE Trivial pulmonary valve regurgitation. VESSELS The inferior vena cava is normal in size. PERICARDIUM There is a small pericardial effusion present. Antelmo Mills DO (Electronically Signed) Final Date:22 October 2017 14:00
[2017-10-22 16:48] LABS: COMPLEMENT C3 91 MG/DL (90-180); COMPLEMENT C4 26 MG/DL (10-40)
--- NOTE | 2017-10-22 18:14 | HHI.PR ---
Addendum to Inpatient Note Additional Information pt seen and examined around 3 pm Admitted with ARF, rhabdomyolisis c/o back pain - chronic On exam: pprminent T spine kyphosis, but not tender to palpation Presented afebrile 2 D echo negative Growing coag neg staph - ? signioficance cont vanco fu clx Yani Green MD Oct 22, 2017 18:14
[2017-10-22] MEDS: traZODone HCL 100 MG TAB PO SCH (20:47)
--- NOTE | 2017-10-22 21:58 | RADRPT ---
EXAM DATE/TIME: 10/22/2017 20:09 [place] COMPARISON: No previous studies available for comparison. INDICATIONS : Left side flank pain. ORAL CONTRAST: No oral contrast ingested. RADIATION DOSE: 8.54 CTDIvol (mGy) MEDICAL HISTORY : Renal calculi. Hepatitis C. SURGICAL HISTORY : lithrotripsy ENCOUNTER: Initial ACUITY: 1 day PAIN SCALE: 7/10 LOCATION: Left flank TECHNIQUE: Volumetric scanning of the abdomen and pelvis was performed. Using automated exposure control and ad justment of the mA and/or kV according to patient size, radiation dose was kept as low as reasonably achievable to obtain optimal diagnostic quality images. DICOM format image data is available electro nically for review and comparison. FINDINGS: Minimal basilar atelectasis. No acute findings in the liver and spleen. Tiny bilateral nonobstructing renal calculi. No hydronephrosis or evidence for obstructive uropathy on the current. Previous right ureteral calculus has passed. A Mcleod catheter present in the bladder. Mild anasarca. Stomach is mildly distended with a large air- fluid level. No acute bony abnormalities. CONCLUSION: 1. No evidence for obstructive uropathy on the current exam. Tiny bilateral nonobstructing renal calc miller. Minimal anasarca. No bowel obstruction, free air. Trace free fluid. Mcleod catheter in bladder. 2. Stomach distended with air fluid level. Yves Yuen MD on October 22, 2017 at 21:52 Board Certified Radiologist. This report was verified electronically.
[2017-10-23] VITALS (24 sets, daily range): BP systolic 124–154; BP diastolic 74–96; PULSE 80–93; RESP 18–20; TEMP 97.5–98.4; O2SAT 96–99
--- NOTE | 2017-10-23 08:14 | HHI.PR ---
Subjective Remarks no sob moving right foot better left still weak no n/v Objective Vitals heart reg lung cta abd s/nt ext moving right foot can wiggle left foot/toes. adams. yellow urine Vital Signs Date Time Temp Pulse Resp B/P (MAP) Pulse Ox O2 Delivery O2 Flow Rate FiO2 10/23/17 08:01 97.5 80 18 126/74 (91) 99 10/23/17 08:01 99 Room Air 10/23/17 07:00 82 10/23/17 06:00 87 10/23/17 05:00 91 10/23/17 04:00 92 10/23/17 04:00 98.4 92 18 143/81 (101) 96 10/23/17 04:00 Room Air 10/23/17 03:00 91 10/23/17 02:00 88 10/23/17 01:00 93 10/23/17 00:00 98.2 85 18 135/85 (102) 98 10/23/17 00:00 85 10/23/17 00:00 Room Air 10/22/17 23:00 86 10/22/17 22:00 85 10/22/17 21:00 83 10/22/17 20:00 88 10/22/17 20:00 Room Air 10/22/17 20:00 98.0 88 20 143/85 (104) 97 10/22/17 18:13 18 10/22/17 16:00 97.6 86 18 127/82 (97) 99 10/22/17 12:00 98.0 83 18 137/83 (101) 98 Result Diagram: 10/21/17 0616 10/22/17 0508 Imaging Last Impressions Head CT 10/20/17 1136 Signed Impressions: Service Date/Time: Friday, October 20, 2017 12:01 - CONCLUSION: Negative for an acute process. Renaldo Erickson MD FACR Chest X-Ray 10/20/17 1136 Signed Impressions: Service Date/Time: Friday, October 20, 2017 11:54 - CONCLUSION: No acute disease. Renaldo Erickson MD FACR Cervical Spine CT 10/20/17 0000 Signed Impressions: Service Date/Time: Friday, October 20, 2017 12:01 - CONCLUSION: No acute bony injury of the cervical spine Kendell Aguilar MD A/P Problem List: (1) Rhabdomyolysis ICD Codes: M62.82 - Rhabdomyolysis Status: Acute Plan: Rhabdomyolysis, likely cocaine induced Acute renal failure, secondary to rhabdomyolysis Hyperkalemia Elevated LFTs and troponin. felt related to rhabdo IVDA HEP C 2/4 gpc blood cx's...coag negative. ?contamination. - Pt is a 37 y/o WM with history of polysubstance abuse/IVDA, hx of rhabdomyolysis, nephrolithiasis and had lithotripsy in August 2017 and Hepatitis C. - Pt presented to the ED at [facility] [place] on 10/20/17 with complaints of LE weakness and feeling unwell. He that he injected heroin and cocaine into his arm yesterday and then he woke up around 330AM this morning on the floor and felt like he couldn't move his legs. - Pt has had a few episodes of vomiting and feels that he has severe weakness in his legs and a pins and needles sensation. - Labs at admission revealed total CK 68,160, CK-MB 481.4, Cr 3.22/BUN 25, potassium 5.7 and Troponin 11.20. - Blood cultures were drawn in the ED and show 2/4 gpc..given vanco and rocephin in ED. pt without f/c and doesn't clinically look septic. repeat blood cx taken 10/21 and ID consulted. . ?aggie if felt to be true infection. - cont ivf and adams. bmp pending. ck trending down -f/u repeat blood cx's - renal following. - small dose prn pain medication -dvt prophylaxis -PT consultation (2) Acute renal failure due to rhabdomyolysis ICD Codes: N17.9 - Acute kidney failure, unspecified; M62.82 - Rhabdomyolysis Status: Acute (3) IVDU (intravenous drug user) ICD Codes: F19.90 - Other psychoactive substance use, unspecified, uncomplicated Status: Chronic (4) Acute hyperkalemia ICD Codes: E87.5 - Hyperkalemia Status: Acute (5) Dehydration ICD Codes: E86.0 - Dehydration Status: Acute (6) Hepatitis C ICD Codes: B19.20 - Unspecified viral hepatitis C without hepatic coma Status: Chronic Problem Qualifiers (1) Rhabdomyolysis: Javier Le MD Oct 23, 2017 08:14
[2017-10-23] MEDS: LORazepam 1 MG TAB PO SCH ×2 (09:10→19:49)
[2017-10-23] MEDS: CHOLECALCIFEROL (VIT D3) 5000 UNIT CAP PO SCH (09:10)
[2017-10-23] MEDS: CALCIUM CARBONATE 500 MG CHEWABLE TAB CHEW SCH ×2 (09:10→19:49)
[2017-10-23] MEDS: DULoxetine HCl DR 60 MG CAP PO SCH (09:11)
[2017-10-23] MEDS: HEPARIN SODIUM - SQ 10,000 UNITS/ML VIAL SQ SCH ×2 (09:12→19:49)
--- NOTE | 2017-10-23 11:17 | HHI.NPPN ---
Subjective Renal Failure: Acute Review of Systems General Constitutional: Fatigue Neuro Neuro Remarks pedal weakness bilaterally Objective Data Data Vital Signs Date Time Temp Pulse Resp B/P (MAP) Pulse Ox O2 Delivery O2 Flow Rate FiO2 10/23/17 08:01 97.5 80 18 126/74 (91) 99 10/23/17 08:01 99 Room Air 10/23/17 07:00 82 10/23/17 06:00 87 10/23/17 05:00 91 10/23/17 04:00 92 10/23/17 04:00 98.4 92 18 143/81 (101) 96 10/23/17 04:00 Room Air 10/23/17 03:00 91 10/23/17 02:00 88 10/23/17 01:00 93 10/23/17 00:00 98.2 85 18 135/85 (102) 98 10/23/17 00:00 85 10/23/17 00:00 Room Air 10/22/17 23:00 86 10/22/17 22:00 85 10/22/17 21:00 83 10/22/17 20:00 88 10/22/17 20:00 Room Air 10/22/17 20:00 98.0 88 20 143/85 (104) 97 10/22/17 18:13 18 10/22/17 16:00 97.6 86 18 127/82 (97) 99 10/22/17 12:00 98.0 83 18 137/83 (101) 98 -: 10/21/17 0616 10/22/17 0508 Tubes & Lines: Adams Physical Exam General Appearance: Well Developed, No Acute Distress, Comfortable Eyes Eye Exam: Pupils Equal, Pupils Reactive Neck Neck Exam: Neck Supple Pulmonary Resp Exam: Clear Bilaterally, Breath Sounds Equal Cardiology CV Exam: Regular, Normal Sinus Rhythm, Good Perfusion Gastrointestinal/Abdomen GI Exam: Soft, Non-Tender, Bowel Sounds Present Musculoskeletal MS Exam: Joints Intact, Normal Tone Integumentary Skin Exam: Warm, Dry, Intact Extremeties Extremities Exam: No Edema, Pedal Pulses Palpable Neurologic Neuro Exam: Alert, Awake, Oriented, Speech Clear Psychiatric Psych Exam: Appropriate Responses Assessment/Plan Discussed Condition With: Patient Assessment Summary: VIVIAN/Acute Renal Failure, Vitamin D Defeciency Electrolyte Assessment: Hypocalcemia, Metabolic Acidosis Problem List: (1) Acute renal failure (ARF) ICD Codes: N17.9 - Acute kidney failure, unspecified Status: Acute Plan: Baseline creatinine of 1 VIVIAN due to rhabdomyolysis and now sepsis; most likely has progressed to ATN Pending repeat renal panel CT abdomen/pelvis is pending to further evaluate; he recently had hydronephrosis due to renal stone He is non oliguric s/p adams placement UA showing blood, calcium oxalate crystals, recent renal stones with lithotripsy outpatient If his renal function declines, he may require hemodialysis support Has metabolic acidosis, continue bicarb gtt @ 125 cc/hr may need hemodialysis (2) Rhabdomyolysis ICD Codes: M62.82 - Rhabdomyolysis Status: Acute Plan: s/p fall, ? seizure, he had down time of 9 hrs approximately Serial CPK monitoring, improving Aggressive fluid resuscitation Monitor renal function (3) Sepsis ICD Codes: A41.9 - Sepsis, unspecified organism Plan: staph, he admits to using dirty needles ID has been consulted Echo ordered to evaluate for endocarditis Given vancomycin, dose appropriate to renal status, follow drug levels (4) Hypocalcemia ICD Codes: E83.51 - Hypocalcemia Plan: Severe vitamin D deficiency, ordered 5000 units per day PTH is appropriately elevated (5) IVDU (intravenous drug user) ICD Codes: F19.90 - Other psychoactive substance use, unspecified, uncomplicated Status: Chronic Plan: Discussed cessation Avoid narcotic use (6) Hyperkalemia ICD Codes: E87.5 - Hyperkalemia Plan: Due to reduction in GFR Corrected, monitor for recurrence Continue bicarb gtt (7) Hepatitis C ICD Codes: B19.20 - Unspecified viral hepatitis C without hepatic coma Status: Chronic Plan: Untreated Problem Qualifiers (1) Acute renal failure (ARF): Qualified Codes: N17.9 - Acute kidney failure, unspecified Juan Ceballos MD Oct 23, 2017 11:17
[2017-10-23] MEDS: SODIUM CHLORIDE 23.4% INJ 38.5 MEQ, SODIUM BICARBONATE 8.4% INJ 100 MEQ in WATER STERIL... IV SCH ×2 (12:30→16:18)
--- NOTE | 2017-10-23 12:55 | PD.ID.CON ---
History of Present Illness Service ID Consult Requested By Dr Le Reason for Consult bacteremia Primary Care Physician Renaldo Villalba, DO Diagnoses: History of Present Illness Delayed entry Pt was seen yday 10/22 37 yo male with active IV DU admitted walk up unable to move his legs He was found to have ARF and rhabdomyolisis NO fever, but prminent leukocytosis Blood clx done with coag neg staph 09/03 - ID P repeat BC negative Pt old me that his strengh is better, but he is still weak Review of Systems Musculoskeletal: COMPLAINS OF: Back pain Neurologic: COMPLAINS OF: Localized weakness, Paresthesias Past Family Social History Allergies: Coded Allergies: No Known Allergies (Verified Allergy, Unknown, 10/20/17) Past Medical History IVDA Hepatitis C, treatment naive Depression/Anxiety Nephrolithiasis Hx of rhabdomyolysis in 2016 Past Surgical History None reported Active Ordered Medications Medications where reviewed in EMR Antibiotics Include: vancomycin Family History Noncontributory Social History (+)IVDA, typically uses iv Dilaudid once every couple weeks, iv cocaine about once per month and iv heroin about once per year. Denies any alcohol use Pt denies any tobacco use Physical Exam Vital Signs Vital Signs Date Time Temp Pulse Resp B/P (MAP) Pulse Ox O2 Delivery O2 Flow Rate FiO2 10/23/17 11:59 97.6 86 18 129/82 (98) 99 10/23/17 10:15 18 10/23/17 08:01 97.5 80 18 126/74 (91) 99 10/23/17 08:01 99 Room Air 10/23/17 07:00 82 10/23/17 06:00 87 10/23/17 05:00 91 10/23/17 04:00 92 10/23/17 04:00 98.4 92 18 143/81 (101) 96 10/23/17 04:00 Room Air 10/23/17 03:00 91 10/23/17 02:00 88 10/23/17 01:00 93 10/23/17 00:00 98.2 85 18 135/85 (102) 98 10/23/17 00:00 85 10/23/17 00:00 Room Air 10/22/17 23:00 86 10/22/17 22:00 85 10/22/17 21:00 83 3/23/18 20:00 88 10/22/17 20:00 Room Air 10/22/17 20:00 98.0 88 20 143/85 (104) 97 10/22/17 16:00 97.6 86 18 127/82 (97) 99 Physical Exam CONSTITUTIONAL/GENERAL: This is an adequately nourished patient, in no apparent distress. TUBES/LINES/DRAINS: SKIN: No jaundice, rashes, or lesions. . Skin temperature appropriate. Not diaphoretic. HEAD: Atraumatic. Normocephalic. EYES: Pupils equal and round and reactive. Extraocular motions intact. No scleral icterus. No injection or drainage. Fundi not examined. ENT: Hearing grossly normal. Nose without bleeding or purulent drainage. Throat without visible erythema, exudates, masses, or lesions. NECK: Trachea midline. Supple, nontender. No palpable thyroid enlargement or nodularity. CARDIOVASCULAR: Regular rate and rhythm without murmurs, gallops, or rubs. No JVD. Peripheral pulses symmetric. RESPIRATORY/CHEST: Symmetric, unlabored respirations. Clear to auscultation. Breath sounds equal bilaterally. No wheezes, rales, or rhonchi. GASTROINTESTINAL: Abdomen soft, non-tender, nondistended. No hepato-splenomegaly , or palpable masses. No guarding. Bowel sounds present. GENITOURINARY: Without palpable bladder distension. Mcleod catheter in place. MUSCULOSKELETAL: Extremities without clubbing, cyanosis, or edema. No joint tenderness or effusion noted. No calf tenderness. No mottling or clubbing. BACK: prominent T spine kyphosis Not tender to palpation LYMPHATICS: No palpable cervical or supraclavicular adenopathy. NEUROLOGICAL: Awake and alert. Motor decreased BLE to 3-4-/5 Follows commands. Cognitively sharp. Moves all extremities. PSYCHIATRIC: No obvious anxiety/depression. no apparent hallucinations or other psychotic thought process. Laboratory Laboratory Tests Test 10/22/17 15:56 Total Creatine Kinase 50118 Creatine Kinase MB 187.1 Creatine Kinase MB % 0.4 Complement C3 91 Complement C4 26 Date/Time Source Procedure Growth Status 10/21/17 18:53 Blood Peripheral Aerobic Blood Culture - Preliminary NO GROWTH IN 2 DAYS Resulted 10/21/17 18:53 Blood Peripheral Anaerobic Blood Culture - Preliminary NO GROWTH IN 2 DAYS Resulted Result Diagram: 10/21/17 0616 10/22/17 0508 Imaging Last Impressions Renal Ultrasound 10/21/17 0000 Signed Impressions: Service Date/Time: September 11:21 - CONCLUSION: 1. Minimal right sided pelviectasis which may be residual in this patient with history of recent right hydronephrosis. 2. Otherwise, no evidence for obstructive uropathy. 3. Subcentimeter cyst in the inferior pole of the left kidney. Salvatore Laurent MD Abdomen/Pelvis CT 10/21/17 0000 Signed Impressions: Service Date/Time: Sunday, October 22, 2017 20:09 - CONCLUSION: 1. No evidence for obstructive uropathy on the current exam. Tiny bilateral nonobstructing renal calculi. Minimal anasarca. No bowel obstruction, free air. Trace free fluid. Mcleod catheter in bladder. 2. Stomach distended with air fluid level. Yves Yuen MD Head CT 10/20/17 1136 Signed Impressions: Service Date/Time: Friday, October 20, 2017 12:01 - CONCLUSION: Negative for an acute process. Renaldo Erickson MD FACR Chest X-Ray 10/20/17 1136 Signed Impressions: Service Date/Time: Friday, October 20, 2017 11:54 - CONCLUSION: No acute disease. Renaldo Erickson MD FACR Cervical Spine CT 10/20/17 0000 Signed Impressions: Service Date/Time: Friday, October 20, 2017 12:01 - CONCLUSION: No acute bony injury of the cervical spine Kendell Aguilar MD Assessment and Plan Assessment and Plan IVDU COag neg staph bactereia - unknown significance IVDU Back pain with BLE weakness - MRI cont vanco fu BC Yani Green MD Oct 23, 2017 12:55
[2017-10-23 17:10] LABS: BICARBONATE 24.6 MEQ/L (21.0-32.0); CALCIUM 6.7 MG/DL (8.5-10.1); CREATININE 7.67 MG/DL (0.60-1.30)
--- NOTE | 2017-10-23 17:17 | RADRPT ---
EXAM DATE/TIME: 10/23/2017 15:40 [facility] COMPARISON: CT ABDOMEN & PELVIS W/O CONTRAST, July 31, 2017, 0:41. INDICATIONS : Pain. MEDICAL HISTORY : Endocarditis. SURGICAL HISTORY : None. ENCOUNTER: Initial ACUITY: 1 day PAIN SCORE: 5/10 LOCATION: Paraspinal TECHNIQUE: Multiplanar multisequence MRI of the thoracic spine was performed. FINDINGS: VERTEBRA: Normal vertebral body height. Homogeneous marrow signal. ALIGNMENT: There is focal mild kyphosis seen at the lower thoracic spine with apex at the T10-T11 level. CORD: Normal position and configuration. T1-T2: Normal. T2-T3: The thecal sac has a normal diameter. No evidence of disc bulge or protrusion. T3-T4: The thecal sac has a normal diameter. No evidence of disc bulge or protrusion. T4-T5: The thecal sac has a normal diameter. No evidence of disc bulge or protrusion. T5-T6: The thecal sac has a normal diameter. No evidence of disc bulge or protrusion. T6-T7: The thecal sac has a normal diameter. No evidence of disc bulge or protrusion. T7-T8: The thecal sac has a normal diameter. No evidence of disc bulge or protrusion. T8-T9: There is decreased signal within the anterior aspect of the disc. There appears to be some sclerosis and endplate changes from degenerative change at the anterior T8-T9 level. There is mild asymmetric d isc bulging worse on the right. Significant stenosis is not seen. There is a focal are of bright sign al at the posterior right lateral disc margin which may represent an annular tear. T9-T10: There is decreased signal within the anterior aspect the disc. The thecal sac has a normal diameter. No evidence of disc bulge or protrusion. T10-T11: The disc demonstrates decreased signal throughout. There is endplate changes at the anterior inferior aspect of T10 and anterior superior aspect of T11. These are predominantly low in signal and likely are chronic. There is a mild focal right lateral recess disc protrusion abutting the anterior right s brittney of cord. There is moderate narrowing of the thecal sac with a thin layer of CSF seen around the c ord at the disc level. Some degree of superior extrusion is seen on the sagittal images. T11-T12: The thecal sac has a normal diameter. No evidence of disc bulge or protrusion. T12-L1: The thecal sac has a normal diameter. No evidence of disc bulge or protrusion. CONCLUSION: Suspected degenerative change of the lower thoracic spine at the T8-T9 to T10-T11 levels as described above. There is some kyphosis in this region. The kyphosis was present on a prior infusion nurse image for a CT of the abdomen performed on 07/04/2017. These changes appear chronic. There is a focal right disc p rotrusion at the T10-T11 level with some degree of superior extrusion resulting in moderate narrowing of the thecal sac at this level. Kendell Tellez MD on October 23, 2017 at 17:07 Board Certified Radiologist. This report was verified electronically.
[2017-10-23 17:26] LABS: TOTAL PROTEIN 6.1 GM/DL (6.4-8.2)
--- NOTE | 2017-10-23 17:36 | RADRPT ---
EXAM DATE/TIME: 10/23/2017 16:34 [facility] COMPARISON: MRI THORACIC SPINE W/O CONTRAST, October 23, 2017, 15:40. INDICATIONS : Pain. Left lower extremity weakness. MEDICAL HISTORY : IVDU SURGICAL HISTORY : Lithotripsy. ENCOUNTER: Initial ACUITY: 3 day PAIN SCORE: 3/10 LOCATION: Paraspinal TECHNIQUE: Multiplanar multisequence MRI of the lumbar spine was performed without contrast. FINDINGS: The most caudal appearing lumbar vertebra is numbered as L5. VERTEBRAE: Homogeneous signal. Normal alignment. CONUS: Normal level and configuration. T12-L1: The thecal sac has a normal diameter. No evidence of disc bulge or protrusion. The neural foramina are patent bilaterally. L1-L2: The thecal sac has a normal diameter. No evidence of disc bulge or protrusion. The neural foramina are patent bilaterally. L2-L3: The thecal sac has a normal diameter. No evidence of disc bulge or protrusion. The neural foramina are patent bilaterally. L3-L4: The thecal sac has a normal diameter. No evidence of disc bulge or protrusion. The neural foramina are patent bilaterally. L4-L5: Minimal bulge at L4-5 with moderate facet disease. There is minimal neural foraminal encroachment. There is no significant spinal stenosis. L5-S1: Minimal central disc bulging. Minimal bilateral neural foramina encroachment worse on the left. Mild SI joint degenerative changes. There is edema in the erector spinae muscles on the left associated with some fatty infiltration sugg esting disuse. The size of the muscle is maintained suggesting this is most likely edema such as yelitza sitis. CONCLUSION: Abnormal erector spinae on the left. Not sure exactly what the etiology of this is. This could be myositis or denervation. With the history of endocarditis and inflammatory process is suspected. There is no abscess as yet. Renaldo Erickson MD FACR on October 23, 2017 at 17:29 Board Certified Radiologist. This report was verified electronically.
[2017-10-23 17:58] LABS: CALCIUM-PROTEIN CORRECTED 7.2 MG/DL (8.5-10.1)
[2017-10-23] MEDS ORDERED: CALCIUM CARBONATE 1.25 GM (CA 500 MG) TAB PO ONE (18:30)
--- NOTE | 2017-10-23 18:49 | HHI.IDPN ---
Subjective Subjective Remarks pt is doing better moving BLE better, left has more problems MRI T spine -unremarkabnle MRI L spine with edema of erectus spinae and chronic kyphotic changes Blood clx with different strains of coag neg staph (Staph epi vs staph hominis) Antibiotics vanco - given one dose Allergies: Coded Allergies: No Known Allergies (Verified Allergy, Unknown, 10/20/17) Objective . Vital Signs Date Time Temp Pulse Resp B/P (MAP) Pulse Ox O2 Delivery O2 Flow Rate FiO2 10/23/17 15:35 20 10/23/17 15:00 97.8 90 20 124/81 (95) 97 10/23/17 11:59 97.6 86 18 129/82 (98) 99 10/23/17 08:01 97.5 80 18 126/74 (91) 99 10/23/17 08:01 99 Room Air 10/23/17 07:00 82 10/23/17 06:00 87 10/23/17 05:00 91 10/23/17 04:00 92 10/23/17 04:00 98.4 92 18 143/81 (101) 96 10/23/17 04:00 Room Air 10/23/17 03:00 91 10/23/17 02:00 88 10/23/17 01:00 93 10/23/17 00:00 98.2 85 18 135/85 (102) 98 10/23/17 00:00 85 10/23/17 00:00 Room Air 10/22/17 23:00 86 10/22/17 22:00 85 10/22/17 21:00 83 10/22/17 20:00 88 10/22/17 20:00 Room Air 10/22/17 20:00 98.0 88 20 143/85 (104) 97 10/23/17 10/23/17 10/24/17 14:59 22:59 06:59 Intake Total 720 ml Output Total 800 ml Balance -80 ml Intake Oral 720 ml Output Urine Total 800 ml . Laboratory Tests Test 10/22/17 05:08 10/22/17 15:56 10/23/17 16:22 Blood Urea Nitrogen 45 MG/DL 60 MG/DL Creatinine 5.36 MG/DL 7.67 MG/DL Random Glucose 89 MG/DL 81 MG/DL Total Protein 6.2 GM/DL 6.1 GM/DL Calcium Level 7.2 MG/DL 6.7 MG/DL Phosphorus Level 7.0 MG/DL Sodium Level 131 MEQ/L 133 MEQ/L Potassium Level 3.8 MEQ/L 4.2 MEQ/L Chloride Level 98 MEQ/L 96 MEQ/L Carbon Dioxide Level 17.9 MEQ/L 24.6 MEQ/L Anion Gap 15 MEQ/L 12 MEQ/L Estimat Glomerular Filtration Rate 12 ML/MIN 8 ML/MIN Protein Corrected Calcium 7.7 MG/DL 7.2 MG/DL Total Creatine Kinase 24637 U/L 37826 U/L Creatine Kinase MB 234.9 NG/ML 187.1 NG/ML Creatine Kinase MB % 0.4 % 0.4 % Microbiology Date/Time Source Procedure Growth Status 10/21/17 18:53 Blood Peripheral Aerobic Blood Culture - Preliminary NO GROWTH IN 2 DAYS Resulted 10/21/17 18:53 Blood Peripheral Anaerobic Blood Culture - Preliminary NO GROWTH IN 2 DAYS Resulted 10/21/17 18:48 Blood Peripheral Aerobic Blood Culture - Preliminary NO GROWTH IN 2 DAYS Resulted 10/21/17 18:48 Blood Peripheral Anaerobic Blood Culture - Preliminary NO GROWTH IN 2 DAYS Resulted Imaging Last Impressions Renal Ultrasound 10/21/17 0000 Signed Impressions: Service Date/Time: September 11:21 - CONCLUSION: 1. Minimal right sided pelviectasis which may be residual in this patient with history of recent right hydronephrosis. 2. Otherwise, no evidence for obstructive uropathy. 3. Subcentimeter cyst in the inferior pole of the left kidney. Salvatore Laurent MD Abdomen/Pelvis CT 10/21/17 0000 Signed Impressions: Service Date/Time: Sunday, October 22, 2017 20:09 - CONCLUSION: 1. No evidence for obstructive uropathy on the current exam. Tiny bilateral nonobstructing renal calculi. Minimal anasarca. No bowel obstruction, free air. Trace free fluid. Mcleod catheter in bladder. 2. Stomach distended with air fluid level. Yves Yuen MD Head CT 10/20/17 1136 Signed Impressions: Service Date/Time: Friday, October 20, 2017 12:01 - CONCLUSION: Negative for an acute process. Renaldo Erickson MD FACR Chest X-Ray 10/20/17 1136 Signed Impressions: Service Date/Time: Friday, October 20, 2017 11:54 - CONCLUSION: No acute disease. Renaldo Erickson MD FACR Cervical Spine CT 10/20/17 0000 Signed Impressions: Service Date/Time: Friday, October 20, 2017 12:01 - CONCLUSION: No acute bony injury of the cervical spine Kendell Aguilar MD Physical Exam CONSTITUTIONAL/GENERAL: This is an adequately nourished patient, in no apparent distress. TUBES/LINES/DRAINS: SKIN: No jaundice, rashes, or lesions. . Skin temperature appropriate. Not diaphoretic. CARDIOVASCULAR: Regular rate and rhythm without murmurs, gallops, or rubs. No JVD. Peripheral pulses symmetric. RESPIRATORY/CHEST: Symmetric, unlabored respirations. Clear to auscultation. Breath sounds equal bilaterally. No wheezes, rales, or rhonchi. GASTROINTESTINAL: Abdomen soft, non-tender, nondistended. No hepato-splenomegaly , or palpable masses. No guarding. Bowel sounds present. GENITOURINARY: Without palpable bladder distension. Mcleod catheter in place. MUSCULOSKELETAL: Extremities without clubbing, cyanosis, or edema. No joint tenderness or effusion noted. No calf tenderness. No mottling or clubbing. BACK: prominent T spine kyphosis Not tender to palpation LYMPHATICS: No palpable cervical or supraclavicular adenopathy. NEUROLOGICAL: Awake and alert. Motor decreased BLE to 3-4-/5, stronger on the R side Follows commands. Cognitively sharp. Moves all extremities. PSYCHIATRIC: No obvious anxiety/depression. no apparent hallucinations or other psychotic thought process. Assessment & Plan Remarks Rhabdomyolisis with ARF COag neg staph bactereia - s IVDU Back pain with BLE weakness; per MRI suspected L side myositis - dc vanco fu repeat BC - consider re-imaging if not improving strengh will see as needed Yani Aguilar MD Oct 23, 2017 18:49
[2017-10-23] MEDS: traZODone HCL 100 MG TAB PO SCH (19:49)
[2017-10-24] VITALS (25 sets, daily range): BP systolic 134–165; BP diastolic 87–113; PULSE 83–110; RESP 18–20; TEMP 97.8–98.4; O2SAT 97–99
[2017-10-24] MEDS: SODIUM CHLORIDE 23.4% INJ 38.5 MEQ, SODIUM BICARBONATE 8.4% INJ 100 MEQ in WATER STERIL... IV SCH ×3 (00:06→20:36)
[2017-10-24 05:43] LABS: BICARBONATE 26.2 MEQ/L (21.0-32.0); CALCIUM 6.6 MG/DL (8.5-10.1); CREATININE 8.3 MG/DL (0.60-1.30)
[2017-10-24 06:07] LABS: TOTAL PROTEIN 5.8 GM/DL (6.4-8.2)
[2017-10-24 06:14] LABS: CALCIUM-PROTEIN CORRECTED 7.2 MG/DL (8.5-10.1)
[2017-10-24] MEDS: HEPARIN SODIUM - SQ 10,000 UNITS/ML VIAL SQ SCH ×2 (08:30→20:35)
[2017-10-24] MEDS: LORazepam 1 MG TAB PO SCH ×2 (08:30→20:32)
[2017-10-24] MEDS: CALCIUM CARBONATE 1.25 GM (CA 500 MG) TAB PO SCH ×3 (08:30→17:27)
[2017-10-24] MEDS: DULoxetine HCl DR 60 MG CAP PO SCH (08:30)
[2017-10-24] MEDS: CHOLECALCIFEROL (VIT D3) 5000 UNIT CAP PO SCH (08:30)
--- NOTE | 2017-10-24 09:08 | HHI.PR ---
Subjective Remarks moves right lower ext normally left foot still weak. no sob. Objective Vitals heart reg lung cta abd s/nt ext ext/flex right hip/knee/ankle nml ext/flex left hip/knee ok but still left ankle plantar/dorsiflexion weakness. Vital Signs Date Time Temp Pulse Resp B/P (MAP) Pulse Ox O2 Delivery O2 Flow Rate FiO2 10/24/17 08:43 89 10/24/17 08:33 18 10/24/17 07:26 97.8 88 20 148/95 (112) 99 10/24/17 07:26 99 Room Air 10/24/17 07:00 90 10/24/17 06:00 90 10/24/17 05:00 156/90 (112) 10/24/17 05:00 92 10/24/17 04:00 Room Air 10/24/17 04:00 98.3 94 18 165/113 (130) 98 10/24/17 04:00 94 10/24/17 03:00 89 10/24/17 02:00 93 10/24/17 01:00 88 10/24/17 00:00 83 10/23/17 23:47 98.0 83 18 154/96 (115) 97 10/23/17 23:00 85 10/23/17 22:00 82 10/23/17 21:00 80 10/23/17 20:00 98.2 83 18 147/89 (108) 98 10/23/17 20:00 83 10/23/17 20:00 Room Air 10/23/17 18:00 84 10/23/17 15:00 97.8 90 20 124/81 (95) 97 10/23/17 15:00 88 10/23/17 14:00 82 10/23/17 13:00 92 10/23/17 12:00 82 10/23/17 11:59 97.6 86 18 129/82 (98) 99 10/23/17 11:00 87 10/23/17 10:00 88 Result Diagram: 10/21/17 0616 10/24/17 0449 Imaging Last Impressions Head CT 10/20/17 1136 Signed Impressions: Service Date/Time: Friday, October 20, 2017 12:01 - CONCLUSION: Negative for an acute process. Renaldo Erickson MD FACR Chest X-Ray 10/20/17 1136 Signed Impressions: Service Date/Time: Friday, October 20, 2017 11:54 - CONCLUSION: No acute disease. Renaldo Erickson MD FACR Cervical Spine CT 10/20/17 0000 Signed Impressions: Service Date/Time: Friday, October 20, 2017 12:01 - CONCLUSION: No acute bony injury of the cervical spine Kendell Aguilar MD A/P Problem List: (1) Rhabdomyolysis ICD Codes: M62.82 - Rhabdomyolysis Status: Acute Plan: Rhabdomyolysis, cocaine induced Acute renal failure, ATN, secondary to rhabdomyolysis Hyperkalemia Elevated LFTs and troponin. related to rhabdo IVDA HEP C 2/4 gpc blood cx's...coag negative. felt to be contamination. left lumbar erector spinae muscle swelling/edema. felt to be myositis - Pt is a 37 y/o WM with history of polysubstance abuse/IVDA, hx of rhabdomyolysis, nephrolithiasis and had lithotripsy in August 2017 and Hepatitis C. - Pt presented to the ED at [facility] on 10/20/17 with complaints of LE weakness and feeling unwell. He that he injected heroin and cocaine into his arm yesterday and then he woke up around 330AM this morning on the floor and felt like he couldn't move his legs. - Pt has had a few episodes of vomiting and feels that he has severe weakness in his legs and a pins and needles sensation. - Labs at admission revealed total CK 68,160, CK-MB 481.4, Cr 3.22/BUN 25, potassium 5.7 and Troponin 11.20. - Blood cultures were drawn in the ED and show 2/4 gpc..given vanco and rocephin in ED. pt without f/c and doesn't clinically look septic. repeat blood cx taken 10/21 and ID consulted. .not felt to have endocarditis. discussed with ID and they agree. - cont ivf and adams. pt with gfr 7 and cr 8. ck trending down. He is making urine but felt to have ongoing risk for HD requirement - replace hypocalcemia. - Monitor strength in left foot...if it doesn't return to nml as the right foot then consider neuro eval and EMG/NCS - small dose prn pain medication -dvt prophylaxis -PT consultation (2) Acute renal failure due to rhabdomyolysis ICD Codes: N17.9 - Acute kidney failure, unspecified; M62.82 - Rhabdomyolysis Status: Acute (3) IVDU (intravenous drug user) ICD Codes: F19.90 - Other psychoactive substance use, unspecified, uncomplicated Status: Chronic (4) Acute hyperkalemia ICD Codes: E87.5 - Hyperkalemia Status: Acute (5) Dehydration ICD Codes: E86.0 - Dehydration Status: Acute (6) Hepatitis C ICD Codes: B19.20 - Unspecified viral hepatitis C without hepatic coma Status: Chronic Problem Qualifiers (1) Rhabdomyolysis: Javier Le MD Oct 24, 2017 09:08
--- NOTE | 2017-10-24 10:37 | HHI.NPPN ---
Subjective Renal Failure: Acute Review of Systems General Constitutional: Fatigue Neuro Neuro Remarks pedal weakness bilaterally Objective Data Data Vital Signs Date Time Temp Pulse Resp B/P (MAP) Pulse Ox O2 Delivery O2 Flow Rate FiO2 10/24/17 08:43 89 10/24/17 08:33 18 10/24/17 07:26 97.8 88 20 148/95 (112) 99 10/24/17 07:26 99 Room Air 10/24/17 07:00 90 10/24/17 06:00 90 10/24/17 05:00 156/90 (112) 10/24/17 05:00 92 10/24/17 04:00 Room Air 10/24/17 04:00 98.3 94 18 165/113 (130) 98 10/24/17 04:00 94 10/24/17 03:00 89 10/24/17 02:00 93 10/24/17 01:00 88 10/24/17 00:00 83 10/23/17 23:47 98.0 83 18 154/96 (115) 97 10/23/17 23:00 85 10/23/17 22:00 82 10/23/17 21:00 80 10/23/17 20:00 98.2 83 18 147/89 (108) 98 10/23/17 20:00 83 10/23/17 20:00 Room Air 10/23/17 18:00 84 10/23/17 15:00 97.8 90 20 124/81 (95) 97 10/23/17 15:00 88 10/23/17 14:00 82 10/23/17 13:00 92 10/23/17 12:00 82 10/23/17 11:59 97.6 86 18 129/82 (98) 99 10/23/17 11:00 87 -: 10/21/17 0616 10/24/17 0449 Tubes & Lines: Adams Physical Exam General Appearance: Well Developed, No Acute Distress, Comfortable Eyes Eye Exam: Pupils Equal, Pupils Reactive Neck Neck Exam: Neck Supple Pulmonary Resp Exam: Clear Bilaterally, Breath Sounds Equal Cardiology CV Exam: Regular, Normal Sinus Rhythm, Good Perfusion Gastrointestinal/Abdomen GI Exam: Soft, Non-Tender, Bowel Sounds Present Musculoskeletal MS Exam: Joints Intact, Normal Tone Integumentary Skin Exam: Warm, Dry, Intact Extremeties Extremities Exam: No Edema, Pedal Pulses Palpable Neurologic Neuro Exam: Alert, Awake, Oriented, Speech Clear Psychiatric Psych Exam: Appropriate Responses Assessment/Plan Discussed Condition With: Patient Assessment Summary: VIVIAN/Acute Renal Failure, Vitamin D Defeciency Electrolyte Assessment: Hypocalcemia, Metabolic Acidosis Problem List: (1) Acute renal failure (ARF) ICD Codes: N17.9 - Acute kidney failure, unspecified Status: Acute Plan: Baseline creatinine of 1 VIVIAN due to rhabdomyolysis and now sepsis; most likely has progressed to ATN Pending repeat renal panel CT abdomen/pelvis is pending to further evaluate; he recently had hydronephrosis due to renal stone He is non oliguric s/p adams placement UA showing blood, calcium oxalate crystals, recent renal stones with lithotripsy outpatient If his renal function declines, he may require hemodialysis support Has metabolic acidosis, continue bicarb gtt @ 125 cc/hr may need hemodialysis patient patient will need dialysis Vas-Cath requested for morning Dr. Garcia to follow (2) Rhabdomyolysis ICD Codes: M62.82 - Rhabdomyolysis Status: Acute Plan: s/p fall, ? seizure, he had down time of 9 hrs approximately Serial CPK monitoring, improving Aggressive fluid resuscitation Monitor renal function (3) Sepsis ICD Codes: A41.9 - Sepsis, unspecified organism Plan: staph, he admits to using dirty needles ID has been consulted Echo ordered to evaluate for endocarditis Given vancomycin, dose appropriate to renal status, follow drug levels (4) Hypocalcemia ICD Codes: E83.51 - Hypocalcemia Plan: Severe vitamin D deficiency, ordered 5000 units per day PTH is appropriately elevated (5) IVDU (intravenous drug user) ICD Codes: F19.90 - Other psychoactive substance use, unspecified, uncomplicated Status: Chronic Plan: Discussed cessation Avoid narcotic use (6) Hyperkalemia ICD Codes: E87.5 - Hyperkalemia Plan: Due to reduction in GFR Corrected, monitor for recurrence Continue bicarb gtt (7) Hepatitis C ICD Codes: B19.20 - Unspecified viral hepatitis C without hepatic coma Status: Chronic Plan: Untreated Problem Qualifiers (1) Acute renal failure (ARF): Qualified Codes: N17.9 - Acute kidney failure, unspecified Juan Ceballos MD Oct 24, 2017 10:37
[2017-10-24] MEDS: traZODone HCL 100 MG TAB PO SCH (20:32)
[2017-10-25] VITALS (26 sets, daily range): BP systolic 131–168; BP diastolic 69–98; PULSE 86–114; RESP 16–20; TEMP 97.6–98.6; O2SAT 95–98
[2017-10-25] MEDS: SODIUM CHLORIDE 23.4% INJ 38.5 MEQ, SODIUM BICARBONATE 8.4% INJ 100 MEQ in WATER STERIL... IV SCH (00:17)
[2017-10-25 08:27] LABS: BICARBONATE 25.1 MEQ/L (21.0-32.0); CALCIUM 7.3 MG/DL (8.5-10.1); CREATININE 9.09 MG/DL (0.60-1.30)
[2017-10-25 08:39] LABS: CALCIUM-PROTEIN CORRECTED 8.1 MG/DL (8.5-10.1); PHOSPHORUS 7.2 MG/DL (2.5-4.9); TOTAL PROTEIN 5.6 GM/DL (6.4-8.2)
[2017-10-25] MEDS: DULoxetine HCl DR 60 MG CAP PO SCH (08:39)
[2017-10-25] MEDS: LORazepam 1 MG TAB PO SCH ×2 (08:40→20:46)
[2017-10-25] MEDS: CALCIUM CARBONATE 1.25 GM (CA 500 MG) TAB PO SCH ×3 (08:40→17:32)
[2017-10-25] MEDS: CHOLECALCIFEROL (VIT D3) 5000 UNIT CAP PO SCH (08:40)
[2017-10-25] MEDS: HEPARIN SODIUM - SQ 10,000 UNITS/ML VIAL SQ SCH ×2 (08:40→20:45)
[2017-10-25] MEDS ORDERED: SODIUM CHLOR 0.9% 1000 ML INJ 1,000 ML OTHER PRN ×2 (09:33)
[2017-10-25] MEDS ORDERED: SODIUM CHLOR 0.9% 1000 ML INJ 1,000 ML IV PRN (09:33)
[2017-10-25] MEDS ORDERED: ALBUMIN 25% INJ 100 ML IV PRN (09:45)
[2017-10-25] MEDS ORDERED: diphenhydrAMINE HCL 25 MG CAP PO PRN (09:45)
[2017-10-25] MEDS ORDERED: ACETAMINOPHEN 325 MG TAB PO PRN (09:45)
[2017-10-25] MEDS ORDERED: NITROGLYCERIN 0.4 MG SL 25 TABS/BTL SL PRN (09:45)
[2017-10-25] MEDS ORDERED: HEPARIN SODIUM - IV 10,000 UNITS/10 ML VIAL IV FLUSH PRN (09:45)
[2017-10-25] MEDS ORDERED: MANNITOL 12.5 GM/50 ML VIAL IV PRN (09:45)
[2017-10-25] MEDS ORDERED: ONDANSETRON HCL 4 MG/2 ML VIAL IV PUSH PRN (09:45)
[2017-10-25] MEDS ORDERED: cloNIDine HCL 0.1 MG TAB PO PRN (09:45)
[2017-10-25] MEDS ORDERED: GELATIN 12 MM/7 MM FOAM TOP PRN (09:45)
--- NOTE | 2017-10-25 11:26 | PD.RAD ---
Post Procedure Progress Note Pre Procedure Diagnosis: (1) Acute renal failure due to rhabdomyolysis Post Procedure Diagnosis: (1) Acute renal failure due to rhabdomyolysis Procedure Date: Oct 25, 2017 Supervising Radiologist: Serafin Grant JR Proceduralist/Assist: Yani Viera RT(R) Anesthesia: Local Plan of Activity Patient to Unit: Nursing Unit Patient Condition: Good See PACS Report for procedural detail/treatment Central Venous Access Device Procedure 1 Right Internal Jugular Hemodialysis Catheter Non-Tunneled Placement dual lumen Swedish: 14 Findings: Vascath in good position and functions well. OK to use. Plan replace or remove in 10-14 days. Jr. Rudy,Serafin Cherry MD Oct 25, 2017 11:26
--- NOTE | 2017-10-25 11:28 | HHI.NPPN ---
Subjective Renal Failure: Acute Interval History Creatinine is worse. He is s/p vascath placement. Non oliguric. (Merly Moran) Review of Systems General Constitutional: Fatigue (Merly Moran) Neuro Neuro Remarks pedal weakness bilaterally (Merly Moran) Objective Data Data Vital Signs Date Time Temp Pulse Resp B/P (MAP) Pulse Ox O2 Delivery O2 Flow Rate FiO2 10/25/17 06:00 95 10/25/17 05:00 93 10/25/17 04:00 Room Air 10/25/17 04:00 99 10/25/17 04:00 98.1 99 20 136/98 (111) 98 10/25/17 03:00 94 10/25/17 02:00 97 10/25/17 01:00 96 10/25/17 00:00 97 10/25/17 00:00 98.4 97 20 168/94 (118) 96 10/25/17 00:00 Room Air 10/24/17 23:00 96 10/24/17 22:00 99 10/24/17 21:00 92 10/24/17 20:00 98.2 97 20 143/92 (109) 97 10/24/17 20:00 97 10/24/17 20:00 Room Air 10/24/17 17:26 19 10/24/17 17:14 93 10/24/17 16:14 98.4 92 20 148/93 (111) 98 10/24/17 16:00 92 10/24/17 15:00 97 10/24/17 14:00 96 10/24/17 13:00 94 10/24/17 12:00 110 10/24/17 11:55 98.2 101 20 134/87 (103) 97 (Merly Moran) -: 10/21/17 0616 10/25/17 0738 Imaging Last 72 hours Impressions Lumbar Spine MRI 10/23/17 1608 Signed Impressions: Service Date/Time: Monday, October 23, 2017 16:34 - CONCLUSION: Abnormal erector spinae on the left. Not sure exactly what the etiology of this is. This could be myositis or denervation. With the history of endocarditis and inflammatory process is suspected. There is no abscess as yet. Renaldo Erickson MD FACR Thoracic Spine MRI 10/23/17 0000 Signed Impressions: Service Date/Time: Monday, October 23, 2017 15:40 - CONCLUSION: Suspected degenerative change of the lower thoracic spine at the T8-T9 to T10-T11 levels as described above. There is some kyphosis in this region. The kyphosis was present on a prior software asset manager image for a CT of the abdomen performed on 07/04/2017. These changes appear chronic. There is a focal right disc protrusion at the T10-T11 level with some degree of superior extrusion resulting in moderate narrowing of the thecal sac at this level. Kendell Tellez MD Tubes & Lines: Vas-Cath, [facility] (DeanMerly B. WOOL AND PELT GRADER) Physical Exam General Appearance: Well Developed, No Acute Distress, Comfortable (Dean,Merly B. WOOL AND PELT GRADER) Eyes Eye Exam: Pupils Equal, Pupils Reactive (Dean,Merly B. WOOL AND PELT GRADER) Neck Neck Exam: Neck Supple (Dean,Merly B. WOOL AND PELT GRADER) Pulmonary Resp Exam: Clear Bilaterally, Breath Sounds Equal (Dean,Merly B. WOOL AND PELT GRADER) Cardiology CV Exam: Regular, Normal Sinus Rhythm, Good Perfusion (Dean,Merly B. WOOL AND PELT GRADER) Gastrointestinal/Abdomen GI Exam: Soft, Non-Tender, Bowel Sounds Present (Dean,Merly B. WOOL AND PELT GRADER) Musculoskeletal MS Exam: Joints Intact, Normal Tone (Dean,Merly B. WOOL AND PELT GRADER) Integumentary Skin Exam: Warm, Dry, Intact (Dean,Merly B. WOOL AND PELT GRADER) Extremeties Extremities Exam: No Edema, Pedal Pulses Palpable (Dean,Merly B. WOOL AND PELT GRADER) Neurologic Neuro Exam: Alert, Awake, Oriented, Speech Clear (Dean,Merly B. WOOL AND PELT GRADER) Psychiatric Psych Exam: Appropriate Responses (DeanMerly B. WOOL AND PELT GRADER) Assessment/Plan Discussed Condition With: Patient Assessment Summary: VIVIAN/Acute Renal Failure, Vitamin D Defeciency Electrolyte Assessment: Hypocalcemia, Metabolic Acidosis Problem List: (1) Acute renal failure (ARF) ICD Codes: N17.9 - Acute kidney failure, unspecified Status: Acute Plan: Baseline creatinine of 1 VIVIAN due to rhabdomyolysis and sepsis; most likely has progressed to ATN Creatinine is worse today although he is non oliguric S/p vascath placement HD today, repeat labs tomorrow Stop bicarb gtt Repeat labs in AM Avoid nephrotoxic agents, renally dose appropriate to renal status Start calcium acetate for hyperphosphatemia (2) Rhabdomyolysis ICD Codes: M62.82 - Rhabdomyolysis Status: Acute Plan: Serial CPK monitoring, improving s/p Aggressive fluid resuscitation Monitor renal function post dialysis (3) Sepsis ICD Codes: A41.9 - Sepsis, unspecified organism Plan: staph, he admits to using dirty needles ID following Echo reviewed, EF 55-60%,. no vegetation Off vancomycin (4) Hypocalcemia ICD Codes: E83.51 - Hypocalcemia Plan: Severe vitamin D deficiency, ordered 5000 units per day (5) IVDU (intravenous drug user) ICD Codes: F19.90 - Other psychoactive substance use, unspecified, uncomplicated Status: Chronic Plan: Discussed cessation Avoid narcotic use (6) Hyperkalemia ICD Codes: E87.5 - Hyperkalemia Plan: Due to reduction in GFR Corrected, monitor for recurrence Continue bicarb gtt (7) Hepatitis C ICD Codes: B19.20 - Unspecified viral hepatitis C without hepatic coma Status: Chronic Plan: Untreated (Merly Moran) Plan patient was seen and examined. Agree with above assessment and plan. Non oliguric. May not need dialysis for a long duration. Avoid nephrotoxins. (Jacek Garcia MD) Problem Qualifiers (1) Acute renal failure (ARF): Qualified Codes: N17.9 - Acute kidney failure, unspecified Merly Moran Oct 25, 2017 11:28 Jacek Garcia MD Oct 26, 2017 15:29
[2017-10-25] MEDS ORDERED: HEPARIN SODIUM - IV 2,000 UNITS/2 ML VIAL IV FLUSH PRN (11:30)
--- NOTE | 2017-10-25 11:41 | RADRPT ---
EXAM DATE/TIME: 10/25/2017 10:12 [facility] COMPARISON: No previous studies available for comparison. INDICATIONS : Patient presents with acute renal failure in need of a temporary dialysis catheter. MEDICAL HISTORY : IVDA Hepatitis C Depression/Anxiety Nephrolithiasis Hx of rhabdomyolysis SURGICAL HISTORY : None ENCOUNTER: Initial ACUITY: 4-6 days PAIN SCORE: 6/10 LOCATION: Lower extremities FLUORO TIME: .21 minutes IMAGE SERIES: 1 ACCESS: Right internal jugular vein DEVICE(S): 1.) 14 Mauritian dual lumen 15 cm Schon catheter PROCEDURE : 1. Ultrasound guided venipuncture. 2. Fluoroscopic guidance. 3. Central line placement. The risks, benefits and alternatives to the procedure were explained and verbal and written consent w as obtained. The site was prepped in sterile fashion. Full sterile technique was used, including ca p, mask, sterile gloves and gown and a large sterile sheet. Hand hygiene and 2% chlorhexidine prep w as utilized per protocol for cutaneous antisepsis with appropriate dry time for site. Sterile gel an d sterile probe cover were utilized for ultrasound guidance. The skin and subcutaneous tissues were infiltrated with local anesthetic solution. A suitable site a marito the vein was selected with ultrasound and fluoroscopic guidance. A small incision was made. Th e vein was accessed under direct ultrasound visualization using the micropuncture technique. The leo ropuncture set was exchanged for a 0.035 wire. The tract was dilated. The catheter was advanced int o position under direct fluoroscopic visualization. The catheter was fixed in place with suture and a sterile dressing was applied. The patient tolerated the procedure well and there were no complications. CONCLUSION: Uncomplicated line placement as above. Serafin Grant Jr., MD on October 25, 2017 at 11:38 Board Certified Radiologist. This report was verified electronically.
[2017-10-25] MEDS: CALCIUM ACETATE 667 MG CAP PO SCH ×3 (13:00→17:32)
[2017-10-25] MEDS: GENTAMICIN SULFATE 20 MG/2 ML VIAL OTHER PRN (15:03)
[2017-10-25] MEDS: HEPARIN SODIUM - IV 10,000 UNITS/10 ML VIAL PRN (15:03)
--- NOTE | 2017-10-25 18:28 | HHI.PR ---
Subjective Remarks Pt had VasCath placed and underwent HD today Pt having some nausea and decreased appetite, no vomiting Objective Vitals Vital Signs Date Time Temp Pulse Resp B/P (MAP) Pulse Ox O2 Delivery O2 Flow Rate FiO2 10/25/17 16:01 98.2 99 18 153/84 (107) 95 10/25/17 14:00 92 10/25/17 13:00 92 10/25/17 12:00 109 10/25/17 11:15 98.0 104 18 159/97 (117) 96 10/25/17 09:00 114 10/25/17 08:45 97 Room Air 10/25/17 08:45 97.8 91 18 133/88 (103) 97 10/25/17 08:00 96 10/25/17 07:00 96 10/25/17 06:00 95 10/25/17 05:00 93 10/25/17 04:00 Room Air 10/25/17 04:00 99 10/25/17 04:00 98.1 99 20 136/98 (111) 98 10/25/17 03:00 94 10/25/17 02:00 97 10/25/17 01:00 96 10/25/17 00:00 97 10/25/17 00:00 98.4 97 20 168/94 (118) 96 10/25/17 00:00 Room Air 10/24/17 23:00 96 10/24/17 22:00 99 10/24/17 21:00 92 10/24/17 20:00 98.2 97 20 143/92 (109) 97 10/24/17 20:00 97 10/24/17 20:00 Room Air 10/25/17 10/25/17 10/26/17 15:00 23:00 07:00 Intake Total 1690 ml Output Total 2950 ml Balance -1260 ml Intake Oral 840 ml IV Total 850 ml Output Urine Total 1950 ml Hemodialysis 1000 ml # Bowel Movements 0 Result Diagram: 10/21/17 0616 10/25/17 0738 Other Results Laboratory Tests Test 10/24/17 04:49 10/25/17 07:38 Blood Urea Nitrogen 60 MG/DL 65 MG/DL Creatinine 8.30 MG/DL 9.09 MG/DL Random Glucose 102 MG/DL 92 MG/DL Total Protein 5.8 GM/DL 5.6 GM/DL Calcium Level 6.6 MG/DL 7.3 MG/DL Sodium Level 134 MEQ/L 129 MEQ/L Potassium Level 4.0 MEQ/L 4.4 MEQ/L Chloride Level 96 MEQ/L 91 MEQ/L Carbon Dioxide Level 26.2 MEQ/L 25.1 MEQ/L Anion Gap 12 MEQ/L 13 MEQ/L Estimat Glomerular Filtration Rate 7 ML/MIN 7 ML/MIN Protein Corrected Calcium 7.2 MG/DL 8.1 MG/DL Total Creatine Kinase 59222 U/L 05068 U/L Creatine Kinase MB 47.9 NG/ML 18.3 NG/ML Creatine Kinase MB % 0.2 % 0.2 % Prothrombin Time 10.0 SEC Prothromb Time International Ratio 1.0 RATIO Phosphorus Level 7.2 MG/DL Imaging Last Impressions Lumbar Spine MRI 10/23/17 1608 Signed Impressions: Service Date/Time: Monday, October 23, 2017 16:34 - CONCLUSION: Abnormal erector spinae on the left. Not sure exactly what the etiology of this is. This could be myositis or denervation. With the history of endocarditis and inflammatory process is suspected. There is no abscess as yet. Renaldo Erickson MD FACR Thoracic Spine MRI 10/23/17 0000 Signed Impressions: Service Date/Time: Monday, October 23, 2017 15:40 - CONCLUSION: Suspected degenerative change of the lower thoracic spine at the T8-T9 to T10-T11 levels as described above. There is some kyphosis in this region. The kyphosis was present on a prior coating mixer tender image for a CT of the abdomen performed on 07/04/2017. These changes appear chronic. There is a focal right disc protrusion at the T10-T11 level with some degree of superior extrusion resulting in moderate narrowing of the thecal sac at this level. Kendell Tellez MD Renal Ultrasound 10/21/17 0000 Signed Impressions: Service Date/Time: September 11:21 - CONCLUSION: 1. Minimal right sided pelviectasis which may be residual in this patient with history of recent right hydronephrosis. 2. Otherwise, no evidence for obstructive uropathy. 3. Subcentimeter cyst in the inferior pole of the left kidney. Salvatore Laurent MD Abdomen/Pelvis CT 10/21/17 0000 Signed Impressions: Service Date/Time: Sunday, October 22, 2017 20:09 - CONCLUSION: 1. No evidence for obstructive uropathy on the current exam. Tiny bilateral nonobstructing renal calculi. Minimal anasarca. No bowel obstruction, free air. Trace free fluid. Mcleod catheter in bladder. 2. Stomach distended with air fluid level. Yves Yuen MD Head CT 10/20/17 1136 Signed Impressions: Service Date/Time: Friday, October 20, 2017 12:01 - CONCLUSION: Negative for an acute process. Renaldo Erickson MD FACR Chest X-Ray 10/20/17 1136 Signed Impressions: Service Date/Time: Friday, October 20, 2017 11:54 - CONCLUSION: No acute disease. Renaldo Erickson MD FACR Cervical Spine CT 10/20/17 0000 Signed Impressions: Service Date/Time: Friday, October 20, 2017 12:01 - CONCLUSION: No acute bony injury of the cervical spine Kendell Aguilar MD Last Impressions Head CT 10/20/176 Signed Impressions: Service Date/Time: Friday, October 20, 2017 12:01 - CONCLUSION: Negative for an acute process. Renaldo Erickson MD FACR Chest X-Ray 10/20/17 113 Signed Impressions: Service Date/Time: Friday, October 20, 2017 11:54 - CONCLUSION: No acute disease. Renaldo Erickson MD FACR Cervical Spine CT 10/20/17 0000 Signed Impressions: Service Date/Time: Friday, October 20, 2017 12:01 - CONCLUSION: No acute bony injury of the cervical spine Kendell Aguilar MD Objective Remarks General: NAD, AAox3 Chest: CTA Cardiac: Regular Abd: +BS, soft ND/NT Ext: Moving RLE better, left foot with minimal flexion A/P Problem List: (1) Rhabdomyolysis ICD Codes: M62.82 - Rhabdomyolysis Status: Acute Plan: Rhabdomyolysis, cocaine induced Acute renal failure, ATN, secondary to rhabdomyolysis Hyperkalemia Elevated LFTs and troponin. related to rhabdo IVDA HEP C 2/4 gpc blood cx's, coag negative, felt likely to be contamination left lumbar erector spinae muscle swelling/edema, felt to be myositis - Pt is a 37 y/o WM with history of polysubstance abuse/IVDA, hx of rhabdomyolysis, nephrolithiasis and had lithotripsy in August 2017 and Hepatitis C. - Pt presented to the ED at [facility] [place] on [place]/17 with complaints of LE weakness and feeling unwell. He that he injected heroin and cocaine into his arm yesterday and then he woke up around 330AM this morning on the floor and felt like he couldn't move his legs. - Pt has had a few episodes of vomiting and feels that he has severe weakness in his legs and a pins and needles sensation. - Labs at admission revealed total CK 68,160, CK-MB 481.4, Cr 3.22/BUN 25, potassium 5.7 and Troponin 11.20. - Blood cultures were drawn in the ED and show 2/4 GPC. Pt was given vanco and rocephin in ED. - Pt has not had any fevers or chills and doesn't clinically look septic. Repeat blood cx taken 10/21 and ID consulted. Repeat cultures with NGTD It is not felt to be likely that the pt has endocarditis, case previously discussed with ID and they agree. - Pt was cont IVF and [facility]cleod. - Pts GFR 7. CK trending down. - Pt had VasCath placed on 10/24 and started HD on 10/25 - Replace hypocalcemia. - Monitor strength in left foot., if it doesn't return to nml as the right foot then consider neuro eval and EMG/NCS - Small dose prn pain medication - Thorazine PRN hiccups - AM labs - Pt to have repeat HD in am - DVT prophylaxis - PT consultation (2) Acute renal failure due to rhabdomyolysis ICD Codes: N17.9 - Acute kidney failure, unspecified; M62.82 - Rhabdomyolysis Status: Acute (3) IVDU (intravenous drug user) ICD Codes: F19.90 - Other psychoactive substance use, unspecified, uncomplicated Status: Chronic (4) Acute hyperkalemia ICD Codes: E87.5 - Hyperkalemia Status: Acute (5) Dehydration ICD Codes: E86.0 - Dehydration Status: Acute (6) Hepatitis C ICD Codes: B19.20 - Unspecified viral hepatitis C without hepatic coma Status: Chronic Assessment and Plan Patient examined. Assessment and plan formulated with Nicky Cuevas PA-C. I agree with the above. Strength increasing at LEs Consider Neurology consultation if improvement does NOT continue. Pt c/o nausea and hiccups. Start thorazine. Problem Qualifiers (1) Rhabdomyolysis: Nicky Cuevas Oct 25, 2017 18:28 Lamont Garcia DO Oct 25, 2017 22:56
[2017-10-25] MEDS ORDERED: chlorproMAZINE HCL 25 MG TAB PO ONE (18:45)
[2017-10-25] MEDS ORDERED: chlorproMAZINE HCL 25 MG TAB PO PRN (18:45)
[2017-10-25] MEDS: traZODone HCL 100 MG TAB PO SCH (20:46)
[2017-10-26] VITALS (14 sets, daily range): BP systolic 125–149; BP diastolic 67–87; PULSE 88–103; RESP 16–18; TEMP 97.6–98.8; O2SAT 95–99
[2017-10-26] MEDS: CALCIUM CARBONATE 1.25 GM (CA 500 MG) TAB PO SCH ×3 (08:06→17:16)
[2017-10-26] MEDS: DULoxetine HCl DR 60 MG CAP PO SCH (08:06)
[2017-10-26] MEDS: SODIUM CHLORIDE 0.9% FLUSH 10 ML FLUSH IV FLUSH PRN (08:07)
[2017-10-26] MEDS: HEPARIN SODIUM - SQ 10,000 UNITS/ML VIAL SQ SCH ×2 (08:07→21:31)
[2017-10-26] MEDS: LORazepam 1 MG TAB PO SCH ×2 (08:07→21:30)
[2017-10-26] MEDS: CHOLECALCIFEROL (VIT D3) 5000 UNIT CAP PO SCH (08:07)
[2017-10-26] MEDS: CALCIUM ACETATE 667 MG CAP PO SCH ×3 (08:07→17:16)
--- NOTE | 2017-10-26 09:07 | HHI.NPPN ---
Subjective Renal Failure: Acute Interval History Tolerated dialysis yesterday, 1 L UF. Seen during dialysis today. Requesting adams catheter removal. (Merly Moran) Review of Systems General Constitutional: Fatigue (Merly Moran) Neuro Neuro Remarks pedal weakness bilaterally (Merly Moran) Objective Data Data Vital Signs Date Time Temp Pulse Resp B/P (MAP) Pulse Ox O2 Delivery O2 Flow Rate FiO2 10/26/17 05:26 88 10/26/17 05:20 98.8 88 18 149/87 (107) 98 10/26/17 05:00 Room Air 10/26/17 04:00 103 10/26/17 03:30 98.5 93 16 142/85 (104) 97 10/26/17 03:00 93 10/26/17 02:00 95 10/26/17 01:00 97 10/26/17 00:00 97 10/25/17 23:30 97.6 94 16 140/85 (103) 97 10/25/17 23:00 98 10/25/17 22:00 100 10/25/17 21:00 88 10/25/17 20:00 97 Room Air 10/25/17 20:00 98.6 93 16 131/69 (89) 97 10/25/17 20:00 94 10/25/17 19:00 100 10/25/17 18:00 86 10/25/17 17:00 98 10/25/17 16:01 98.2 99 18 153/84 (107) 95 10/25/17 16:00 98 10/25/17 15:00 95 10/25/17 14:00 92 10/25/17 13:00 92 10/25/17 12:00 109 10/25/17 11:15 98.0 104 18 159/97 (117) 96 (Merly Moran) -: 10/25/17 0738 Imaging Last 72 hours Impressions Catheter Placement X-Ray 10/25/17 0800 Signed Impressions: Service Date/Time: Wednesday, October 25, 2017 10:12 - CONCLUSION: Uncomplicated line placement as above. Serafin Grant Jr., MD Lumbar Spine MRI 10/23/17 1608 Signed Impressions: Service Date/Time: Monday, October 23, 2017 16:34 - CONCLUSION: Abnormal erector spinae on the left. Not sure exactly what the etiology of this is. This could be myositis or denervation. With the history of endocarditis and inflammatory process is suspected. There is no abscess as yet. Renaldo Ericskon MD FACR Tubes & Lines: Vas-Cath, [facility] (Merly Moran B. SOFTWARE ENGINEER MOBILE) Physical Exam General Appearance: Well Developed, No Acute Distress, Comfortable (Dean,Merly B. SOFTWARE ENGINEER MOBILE) Eyes Eye Exam: Pupils Equal, Pupils Reactive (Dean,Merly B. SOFTWARE ENGINEER MOBILE) Neck Neck Exam: Neck Supple, Trachea Midline (Dean,Merly B. SOFTWARE ENGINEER MOBILE) Pulmonary Resp Exam: Clear Bilaterally, Breath Sounds Equal (Dean,Merly B. SOFTWARE ENGINEER MOBILE) Cardiology CV Exam: Regular, Normal Sinus Rhythm, Good Perfusion (Dean,Merly B. SOFTWARE ENGINEER MOBILE) Gastrointestinal/Abdomen GI Exam: Soft, Non-Tender, Bowel Sounds Present (Jeramie Moranon B. SOFTWARE ENGINEER MOBILE) Musculoskeletal MS Exam: Joints Intact, Normal Tone, Good Strength (Dean,Merly B. SOFTWARE ENGINEER MOBILE) Integumentary Skin Exam: Clear, Warm, Dry, Intact (Dean,Merly B. SOFTWARE ENGINEER MOBILE) Extremeties Extremities Exam: No Edema, Pedal Pulses Palpable (Dean,Merly B. SOFTWARE ENGINEER MOBILE) Neurologic Neuro Exam: Alert, Awake, Oriented, Speech Clear (Dean,Merly B. SOFTWARE ENGINEER MOBILE) Psychiatric Psych Exam: Appropriate Responses (DeanMerly B. SOFTWARE ENGINEER MOBILE) Assessment/Plan Discussed Condition With: Patient Assessment Summary: VIVIAN/Acute Renal Failure, Acute Tubular Necrosis, Vitamin D Defeciency Electrolyte Assessment: Hypocalcemia, Metabolic Acidosis Problem List: (1) Acute renal failure (ARF) ICD Codes: N17.9 - Acute kidney failure, unspecified Status: Acute Plan: Baseline creatinine of 1 VIVIAN due to rhabdomyolysis and sepsis and ATN Vascath placed and HD initiated on 10/25, tolerated well, 1L UF Seen during HD today on 3K, 250 BFR, goal 2L Obtain renal panel daily in AM HD on if needed He has been making excellent urine since admission; adams removal today with voiding trial Off IVF Avoid nephrotoxic agents, renally dose appropriate to renal status On calcium acetate for hyperphosphatemia (2) Rhabdomyolysis ICD Codes: M62.82 - Rhabdomyolysis Status: Acute Plan: Serial CPK monitoring, improving s/p Aggressive fluid resuscitation Monitor renal function post dialysis (3) Sepsis ICD Codes: A41.9 - Sepsis, unspecified organism Plan: staph, he admits to using dirty needles ID following Echo reviewed, EF 55-60%,. no vegetation Off vancomycin (4) Hypocalcemia ICD Codes: E83.51 - Hypocalcemia Plan: Has Severe vitamin D deficiency Continue replacement of 5000 units per day Also has Calcium replacement ordered (5) IVDU (intravenous drug user) ICD Codes: F19.90 - Other psychoactive substance use, unspecified, uncomplicated Status: Chronic Plan: Discussed cessation Avoid narcotic use (6) Hyperkalemia ICD Codes: E87.5 - Hyperkalemia Plan: Due to reduction in GFR Corrected, monitor for recurrence Off bicarb gtt (7) Hepatitis C ICD Codes: B19.20 - Unspecified viral hepatitis C without hepatic coma Status: Chronic Plan: Untreated (Merly Moran) Plan patient was seen and examined during dialysis. Monitor urine output and renal function. Dialysis only if needed. Avoid nephrotoxins. (Jacek Garcia MD) Problem Qualifiers (1) Acute renal failure (ARF): Qualified Codes: N17.9 - Acute kidney failure, unspecified Merly Moran Oct 26, 2017 09:07 Jacek Garcia MD Oct 26, 2017 15:30
[2017-10-26 09:37] LABS: AUTOMATED NEUTROPHIL # 5.2 TH/MM3 (1.8-7.7); BASOPHIL % 0.3 % (0.0-2.0); EOSINOPHIL # 0.2 TH/MM3 (0-0.4); HEMATOCRIT 39.9 % (39.0-51.0); HEMOGLOBIN 13.8 GM/DL (13.0-17.0); LYMPH % 18.1 % (9.0-44.0); LYMPHOCYTE # 1.4 TH/MM3 (1.0-4.8); MEAN CELL VOLUME 79.8 FL (80.0-100.0); MEAN CORPUSCULAR HEMOGLOBIN 27.7 PG (27.0-34.0); MEAN CORPUSCULAR HGB CONC 34.7 % (32.0-36.0); MEAN PLATELET VOLUME 6.9 FL (7.0-11.0); MONO % 12.6 % (0.0-8.0); PLATELET COUNT 214 TH/MM3 (150-450); RED BLOOD COUNT 4.99 MIL/MM3 (4.50-5.90); RED CELL DISTRIBUTION WIDTH 15.1 % (11.6-17.2); WHITE BLOOD COUNT 7.7 TH/MM3 (4.0-11.0)
--- NOTE | 2017-10-26 10:53 | HHI.PR ---
Subjective Remarks Pt undergoing HD this morning No new complaints Objective Vitals Vital Signs Date Time Temp Pulse Resp B/P (MAP) Pulse Ox O2 Delivery O2 Flow Rate FiO2 10/26/17 05:26 88 10/26/17 05:20 98.8 88 18 149/87 (107) 98 10/26/17 05:00 Room Air 10/26/17 04:00 103 10/26/17 03:30 98.5 93 16 142/85 (104) 97 10/26/17 03:00 93 10/26/17 02:00 95 10/26/17 01:00 97 10/26/17 00:00 97 10/25/17 23:30 97.6 94 16 140/85 (103) 97 10/25/17 23:00 98 10/25/17 22:00 100 10/25/17 21:00 88 10/25/17 20:00 97 Room Air 10/25/17 20:00 98.6 93 16 131/69 (89) 97 10/25/17 20:00 94 10/25/17 19:00 100 10/25/17 18:00 86 10/25/17 17:00 98 10/25/17 16:01 98.2 99 18 153/84 (107) 95 10/25/17 16:00 98 10/25/17 15:00 95 10/25/17 14:00 92 10/25/17 13:00 92 10/25/17 12:00 109 10/25/17 11:15 98.0 104 18 159/97 (117) 96 10/26/17 10/26/17 10/27/17 15:00 23:00 07:00 Output Total 2000 ml Balance -2000 ml Output Urine Total 1000 ml Hemodialysis 1000 ml Result Diagram: 10/26/17 0745 10/25/17 0738 Other Results Laboratory Tests Test 10/25/17 07:38 10/25/17 20:22 10/26/17 07:45 Prothrombin Time 10.0 SEC Prothromb Time International Ratio 1.0 RATIO Blood Urea Nitrogen 65 MG/DL Creatinine 9.09 MG/DL Random Glucose 92 MG/DL Total Protein 5.6 GM/DL Calcium Level 7.3 MG/DL Phosphorus Level 7.2 MG/DL Sodium Level 129 MEQ/L Potassium Level 4.4 MEQ/L Chloride Level 91 MEQ/L Carbon Dioxide Level 25.1 MEQ/L Anion Gap 13 MEQ/L Estimat Glomerular Filtration Rate 7 ML/MIN Protein Corrected Calcium 8.1 MG/DL Total Creatine Kinase 57644 U/L 6137 U/L Creatine Kinase MB 18.3 NG/ML 8.5 NG/ML Creatine Kinase MB % 0.2 % 0.1 % Hepatitis A IgM Antibody NONREACTIVE Hepatitis B Surface Antigen NONREACTIVE Hepatitis B Core IgM Antibody NONREACTIVE Hepatitis C IgG Antibody REACTIVE White Blood Count 7.7 TH/MM3 Red Blood Count 4.99 MIL/MM3 Hemoglobin 13.8 GM/DL Hematocrit 39.9 % Mean Corpuscular Volume 79.8 FL Mean Corpuscular Hemoglobin 27.7 PG Mean Corpuscular Hemoglobin Concent 34.7 % Red Cell Distribution Width 15.1 % Platelet Count 214 TH/MM3 Mean Platelet Volume 6.9 FL Neutrophils (%) (Auto) 67.0 % Lymphocytes (%) (Auto) 18.1 % Monocytes (%) (Auto) 12.6 % Eosinophils (%) (Auto) 2.0 % Basophils (%) (Auto) 0.3 % Neutrophils # (Auto) 5.2 TH/MM3 Lymphocytes # (Auto) 1.4 TH/MM3 Monocytes # (Auto) 1.0 TH/MM3 Eosinophils # (Auto) 0.2 TH/MM3 Basophils # (Auto) 0.0 TH/MM3 CBC Comment DIFF FINAL Differential Comment Imaging Last Impressions Lumbar Spine MRI 10/23/17 1608 Signed Impressions: Service Date/Time: Monday, October 23, 2017 16:34 - CONCLUSION: Abnormal erector spinae on the left. Not sure exactly what the etiology of this is. This could be myositis or denervation. With the history of endocarditis and inflammatory process is suspected. There is no abscess as yet. Renaldo Erickson MD FACR Thoracic Spine MRI 10/23/17 0000 Signed Impressions: Service Date/Time: Monday, October 23, 2017 15:40 - CONCLUSION: Suspected degenerative change of the lower thoracic spine at the T8-T9 to T10-T11 levels as described above. There is some kyphosis in this region. The kyphosis was present on a prior triage rn image for a CT of the abdomen performed on 07/04/2017. These changes appear chronic. There is a focal right disc protrusion at the T10-T11 level with some degree of superior extrusion resulting in moderate narrowing of the thecal sac at this level. Kendell Tellez MD Renal Ultrasound 10/21/17 0000 Signed Impressions: Service Date/Time: September 11:21 - CONCLUSION: 1. Minimal right sided pelviectasis which may be residual in this patient with history of recent right hydronephrosis. 2. Otherwise, no evidence for obstructive uropathy. 3. Subcentimeter cyst in the inferior pole of the left kidney. Salvatore Laurent MD Abdomen/Pelvis CT 10/21/17 0000 Signed Impressions: Service Date/Time: Sunday, October 22, 2017 20:09 - CONCLUSION: 1. No evidence for obstructive uropathy on the current exam. Tiny bilateral nonobstructing renal calculi. Minimal anasarca. No bowel obstruction, free air. Trace free fluid. Mcleod catheter in bladder. 2. Stomach distended with air fluid level. Yves Yuen MD Head CT 10/20/17 1136 Signed Impressions: Service Date/Time: Friday, October 20, 2017 12:01 - CONCLUSION: Negative for an acute process. Renaldo Erickson MD FACR Chest X-Ray 10/20/17 113 Signed Impressions: Service Date/Time: Friday, October 20, 2017 11:54 - CONCLUSION: No acute disease. Renaldo Erickson MD FACR Cervical Spine CT 10/20/17 0000 Signed Impressions: Service Date/Time: Friday, October 20, 2017 12:01 - CONCLUSION: No acute bony injury of the cervical spine Kendell Aguilar MD Last Impressions Head CT 10/20/17 1136 Signed Impressions: Service Date/Time: Friday, October 20, 2017 12:01 - CONCLUSION: Negative for an acute process. Renaldo Erickson MD FACR Chest X-Ray 10/20/17 113 Signed Impressions: Service Date/Time: Friday, October 20, 2017 11:54 - CONCLUSION: No acute disease. Renaldo Erickson MD FACR Cervical Spine CT 10/20/17 0000 Signed Impressions: Service Date/Time: Friday, October 20, 2017 12:01 - CONCLUSION: No acute bony injury of the cervical spine Kendell Aguilar MD Objective Remarks General: NAD, AAox3 Chest: CTA Cardiac: Regular Abd: +BS, soft ND/NT Ext: Moving RLE better, left foot with minimal flexion A/P Problem List: (1) Rhabdomyolysis ICD Codes: M62.82 - Rhabdomyolysis Status: Acute Plan: Rhabdomyolysis, cocaine induced Acute renal failure, ATN, secondary to rhabdomyolysis Hyperkalemia Elevated LFTs and troponin. related to rhabdo IVDA HEP C 2/4 gpc blood cx's, coag negative, felt likely to be contamination left lumbar erector spinae muscle swelling/edema, felt to be myositis - Pt is a 37 y/o WM with history of polysubstance abuse/IVDA, hx of rhabdomyolysis, nephrolithiasis and had lithotripsy in August 2017 and Hepatitis C. - [place] [facility] [place] with complaints of LE weakness and feeling unwell. He that he injected heroin and cocaine into his arm yesterday and then he woke up around 330AM this morning on the floor and felt like he couldn't move his legs. - Pt has had a few episodes of vomiting and feels that he has severe weakness in his legs and a pins and needles sensation. - Labs at admission revealed total CK 68,160, CK-MB 481.4, Cr 3.22/BUN 25, potassium 5.7 and Troponin 11.20. - Blood cultures were drawn in the ED and show 2/4 GPC. Pt was given vanco and rocephin in ED. - Pt has not had any fevers or chills and doesn't clinically look septic. Repeat blood cx taken 10/21 and ID consulted. Repeat cultures with NGTD It is not felt to be likely that the pt has endocarditis, case previously discussed with ID and they agree. - Pt was cont IVF and [facility]. - Pts GFR 7. CK trending down. - Pt had VasCath placed on 10/24 and started HD on 10/25 - Hypocalcemia is improving with replacement - Monitor strength in left foot, if it doesn't return to nml as the right foot then consider neuro eval and EMG/NCS - Small dose prn pain medication - Thorazine PRN hiccups - AM labs - Pt having repeat HD this morning - PT evaluated the pt and recommended rehab - DVT prophylaxis (2) Acute renal failure due to rhabdomyolysis ICD Codes: N17.9 - Acute kidney failure, unspecified; M62.82 - Rhabdomyolysis Status: Acute (3) IVDU (intravenous drug user) ICD Codes: F19.90 - Other psychoactive substance use, unspecified, uncomplicated Status: Chronic (4) Acute hyperkalemia ICD Codes: E87.5 - Hyperkalemia Status: Acute (5) Dehydration ICD Codes: E86.0 - Dehydration Status: Acute (6) Hepatitis C ICD Codes: B19.20 - Unspecified viral hepatitis C without hepatic coma Status: Chronic Assessment and Plan Patient examined. Assessment and plan formulated with Nicky Cuevas PA-C. I agree with the above. Pt underwent second HD. Pt had NO new complaints. Await AM labs and input from Nephrology. Follow CK, BUN, Creatinine. Problem Qualifiers (1) Rhabdomyolysis: Nicky Cuevas Oct 26, 2017 10:53 Lamont Garcia DO Oct 27, 2017 03:12
[2017-10-26] MEDS: GENTAMICIN SULFATE 20 MG/2 ML VIAL OTHER PRN (11:19)
[2017-10-26] MEDS: HEPARIN SODIUM - IV 10,000 UNITS/10 ML VIAL PRN (11:19)
[2017-10-26] MEDS: DOCUSATE SODIUM 100 MG CAP PO SCH ×2 (12:18→21:30)
[2017-10-26 15:19] LABS: BACTERIA, URINE OCC /hpf; BILIRUBIN, URINE NEG (NEG); BLOOD, URINE MOD (NEG); GLUCOSE,URINE NEG (NEG); KETONE, URINE NEG (NEG); NITRITE,URINE NEG (NEG); SQUAMOUS EPITHELIAL CELL URINE 3 /hpf (0-5); URINE COLOR LIGHT-YELLOW (YELLW/STRAW); URINE LEUKOCYTE ESTERASE LARGE (NEG)
[2017-10-26] MEDS: traZODone HCL 100 MG TAB PO SCH (21:30)
[2017-10-27] VITALS (11 sets, daily range): BP systolic 133–144; BP diastolic 67–85; PULSE 75–105; RESP 16–18; TEMP 97.4–98.8; O2SAT 96–100
[2017-10-27] MEDS: DOCUSATE SODIUM 100 MG CAP PO SCH ×2 (08:10→21:00)
[2017-10-27] MEDS: DULoxetine HCl DR 60 MG CAP PO SCH (08:11)
[2017-10-27] MEDS: CALCIUM ACETATE 667 MG CAP PO SCH ×3 (08:11→18:21)
[2017-10-27] MEDS: LORazepam 1 MG TAB PO SCH ×2 (08:11→21:15)
[2017-10-27] MEDS: CALCIUM CARBONATE 1.25 GM (CA 500 MG) TAB PO SCH ×3 (08:11→18:21)
[2017-10-27] MEDS: CHOLECALCIFEROL (VIT D3) 5000 UNIT CAP PO SCH (08:11)
[2017-10-27] MEDS: HEPARIN SODIUM - SQ 10,000 UNITS/ML VIAL SQ SCH ×2 (08:11→21:14)
[2017-10-27] MEDS: SODIUM CHLORIDE 0.9% FLUSH 10 ML FLUSH IV FLUSH PRN (08:12)
[2017-10-27] MEDS ORDERED: BISACODYL 10 MG SUPP RECTAL ONE (09:30)
[2017-10-27 09:58] LABS: AUTOMATED NEUTROPHIL # 4.1 TH/MM3 (1.8-7.7); BASOPHIL % 0.5 % (0.0-2.0); EOSINOPHIL # 0.2 TH/MM3 (0-0.4); EOSINOPHIL % 2.6 % (0.0-4.0); HEMOGLOBIN 14.3 GM/DL (13.0-17.0); LYMPH % 21.7 % (9.0-44.0); LYMPHOCYTE # 1.4 TH/MM3 (1.0-4.8); MEAN CELL VOLUME 81.4 FL (80.0-100.0); MEAN CORPUSCULAR HEMOGLOBIN 27.7 PG (27.0-34.0); MEAN PLATELET VOLUME 6.7 FL (7.0-11.0); MONO % 11.5 % (0.0-8.0); MONOCYTE # 0.7 TH/MM3 (0-0.9); NEUT % 63.7 % (16.0-70.0); PLATELET COUNT 230 TH/MM3 (150-450); RED BLOOD COUNT 5.16 MIL/MM3 (4.50-5.90); RED CELL DISTRIBUTION WIDTH 15.3 % (11.6-17.2); WHITE BLOOD COUNT 6.4 TH/MM3 (4.0-11.0)
--- NOTE | 2017-10-27 10:12 | HHI.NPPN ---
Subjective Renal Failure: Acute History of Present Illness Pending labs from today, his urine output may be improving. Reporting constipation and left foot drop. (Merly Moran) Review of Systems General Constitutional: Fatigue (Merly Moran) Neuro Neuro Remarks pedal weakness bilaterally (Merly Moran) Objective Data Data Vital Signs Date Time Temp Pulse Resp B/P (MAP) Pulse Ox O2 Delivery O2 Flow Rate FiO2 10/27/17 08:00 Room Air 10/27/17 08:00 97.6 89 18 137/81 (99) 98 10/27/17 07:50 90 10/27/17 04:06 88 10/27/17 04:00 97.4 92 16 133/75 (94) 96 10/27/17 00:00 90 10/27/17 00:00 98.8 98 18 141/79 (99) 97 10/26/17 20:15 96 10/26/17 20:00 98.2 88 16 125/74 (91) 99 10/26/17 19:00 Room Air 10/26/17 16:00 96 10/26/17 16:00 97.9 102 18 129/67 (87) 95 10/26/17 12:29 96 21 10/26/17 12:00 97.9 92 18 134/77 (96) 97 10/26/17 12:00 97.9 92 18 134/77 (96) 97 (Merly Moran) -: 10/27/17 0915 10/25/17 0738 Microbiology 10/26/17 Urine Culture, Received Pending Imaging Last 72 hours Impressions Catheter Placement X-Ray 10/25/17 0800 Signed Impressions: Service Date/Time: Wednesday, October 25, 2017 10:12 - CONCLUSION: Uncomplicated line placement as above. Serafin Grant Jr., MD Tubes & Lines: Vas-Cath, Adams (Merly Moran) Physical Exam General Appearance: Well Developed, No Acute Distress, Comfortable (Merly Moran) Eyes Eye Exam: Pupils Equal, Pupils Reactive (Merly Moran) Neck Neck Exam: Neck Supple, Trachea Midline (Merly Moran) Pulmonary Resp Exam: Clear Bilaterally, Breath Sounds Equal (Merly Moran) Cardiology CV Exam: Regular, Normal Sinus Rhythm, Good Perfusion (Merly Moran) Gastrointestinal/Abdomen GI Exam: Soft, Non-Tender, Bowel Sounds Present (Mrely Moran) Musculoskeletal MS Exam: Joints Intact, Normal Tone, Good Strength (Merly Moran) Integumentary Skin Exam: Clear, Warm, Dry, Intact (Merly Moran) Extremeties Extremities Exam: No Edema, Pedal Pulses Palpable (Merly Moran) Neurologic Neuro Exam: Alert, Awake, Oriented, Speech Clear (Merly Moran) Psychiatric Psych Exam: Appropriate Responses (Merly Moran) Assessment/Plan Discussed Condition With: Patient Assessment Summary: VIVIAN/Acute Renal Failure, Acute Tubular Necrosis, Vitamin D Defeciency Electrolyte Assessment: Hypocalcemia, Metabolic Acidosis Problem List: (1) Acute renal failure (ARF) ICD Codes: N17.9 - Acute kidney failure, unspecified Status: Acute Plan: Baseline creatinine of 1 VIVIAN due to rhabdomyolysis and sepsis and ATN Vascath placed and HD initiated on 10/25/10/26 Hold HD today, repeat labs today and tomorrow HD tomorrow if needed He has been making excellent urine, s/p adams removal Off IVF Avoid nephrotoxic agents, renally dose appropriate to renal status On calcium acetate for hyperphosphatemia (2) Rhabdomyolysis ICD Codes: M62.82 - Rhabdomyolysis Status: Acute Plan: Serial CPK monitoring, improving s/p Aggressive fluid resuscitation Monitor renal function post dialysis Having persistent left leg weakness/foot drop, consider neurology evaluation (3) Sepsis ICD Codes: A41.9 - Sepsis, unspecified organism Plan: staph, he admits to using dirty needles ID following Echo reviewed, EF 55-60%,. no vegetation Off vancomycin (4) Hypocalcemia ICD Codes: E83.51 - Hypocalcemia Plan: Has Severe vitamin D deficiency Continue replacement of 5000 units per day Also has Calcium replacement ordered (5) IVDU (intravenous drug user) ICD Codes: F19.90 - Other psychoactive substance use, unspecified, uncomplicated Status: Chronic Plan: Discussed cessation Avoid narcotic use (6) Hyperkalemia ICD Codes: E87.5 - Hyperkalemia Plan: Due to reduction in GFR Corrected, monitor for recurrence Off bicarb gtt (7) Hepatitis C ICD Codes: B19.20 - Unspecified viral hepatitis C without hepatic coma Status: Chronic Plan: Untreated (Merly Moran) Plan patient was seen and examined. Non oliguric. Monitor urine output and renal function. Dialysis as needed. (Jacek Garcia MD) Problem Qualifiers (1) Acute renal failure (ARF): Qualified Codes: N17.9 - Acute kidney failure, unspecified Merly oMran Oct 27, 2017 10:12 Jacek Garcia MD Oct 28, 2017 14:14
[2017-10-27 10:15] LABS: ALBUMIN 2.5 GM/DL (3.4-5.0); BICARBONATE 29.1 MEQ/L (21.0-32.0); CALCIUM 8.3 MG/DL (8.5-10.1); CREATININE 7.94 MG/DL (0.60-1.30); PHOSPHORUS 4.8 MG/DL (2.5-4.9)
--- NOTE | 2017-10-27 15:51 | HHI.PR ---
Subjective Remarks No new complaints Objective Vitals Vital Signs Date Time Temp Pulse Resp B/P (MAP) Pulse Ox O2 Delivery O2 Flow Rate FiO2 10/27/17 14:18 90 140/67 (91) 10/27/17 12:00 97.7 98 18 141/85 (103) 97 10/27/17 11:58 105 10/27/17 08:00 Room Air 10/27/17 08:00 97.6 89 18 137/81 (99) 98 10/27/17 07:50 90 10/27/17 04:06 88 10/27/17 04:00 97.4 92 16 133/75 (94) 96 10/27/17 00:00 90 10/27/17 00:00 98.8 98 18 141/79 (99) 97 10/26/17 20:15 96 10/26/17 20:00 98.2 88 16 125/74 (91) 99 10/26/17 19:00 Room Air 10/26/17 16:00 96 10/26/17 16:00 97.9 102 18 129/67 (87) 95 Result Diagram: 10/27/17 0915 10/27/17 0915 Other Results Laboratory Tests Test 10/25/17 07:38 10/25/17 20:22 10/26/17 07:45 10/26/17 14:30 Prothrombin Time 10.0 SEC Prothromb Time International Ratio 1.0 RATIO Blood Urea Nitrogen 65 MG/DL Creatinine 9.09 MG/DL Random Glucose 92 MG/DL Total Protein 5.6 GM/DL Calcium Level 7.3 MG/DL Phosphorus Level 7.2 MG/DL Sodium Level 129 MEQ/L Potassium Level 4.4 MEQ/L Chloride Level 91 MEQ/L Carbon Dioxide Level 25.1 MEQ/L Anion Gap 13 MEQ/L Estimat Glomerular Filtration Rate 7 ML/MIN Protein Corrected Calcium 8.1 MG/DL Total Creatine Kinase 16243 U/L 6137 U/L Creatine Kinase MB 18.3 NG/ML 8.5 NG/ML Creatine Kinase MB % 0.2 % 0.1 % Hepatitis A IgM Antibody NONREACTIVE Hepatitis B Surface Antigen NONREACTIVE Hepatitis B Core IgM Antibody NONREACTIVE Hepatitis C IgG Antibody REACTIVE White Blood Count 7.7 TH/MM3 Red Blood Count 4.99 MIL/MM3 Hemoglobin 13.8 GM/DL Hematocrit 39.9 % Mean Corpuscular Volume 79.8 FL Mean Corpuscular Hemoglobin 27.7 PG Mean Corpuscular Hemoglobin Concent 34.7 % Red Cell Distribution Width 15.1 % Platelet Count 214 TH/MM3 Mean Platelet Volume 6.9 FL Neutrophils (%) (Auto) 67.0 % Lymphocytes (%) (Auto) 18.1 % Monocytes (%) (Auto) 12.6 % Eosinophils (%) (Auto) 2.0 % Basophils (%) (Auto) 0.3 % Neutrophils # (Auto) 5.2 TH/MM3 Lymphocytes # (Auto) 1.4 TH/MM3 Monocytes # (Auto) 1.0 TH/MM3 Eosinophils # (Auto) 0.2 TH/MM3 Basophils # (Auto) 0.0 TH/MM3 CBC Comment DIFF FINAL Differential Comment Urine Color LIGHT-YELLOW Urine Turbidity CLEAR Urine pH 8.0 Urine Specific [place] 1.004 Urine Protein TRACE mg/dL Urine Glucose (UA) NEG mg/dL Urine Ketones NEG mg/dL Urine Occult Blood MOD Urine Nitrite NEG Urine Bilirubin NEG Urine Urobilinogen LESS THAN 2.0 MG/DL Urine Leukocyte Esterase LARGE Urine RBC 4 /hpf Urine WBC 18 /hpf Urine Squamous Epithelial Cells 3 /hpf Urine Bacteria OCC /hpf Microscopic Urinalysis Comment CULTURE INDICATED Test 10/27/17 09:15 White Blood Count 6.4 TH/MM3 Red Blood Count 5.16 MIL/MM3 Hemoglobin 14.3 GM/DL Hematocrit 42.0 % Mean Corpuscular Volume 81.4 FL Mean Corpuscular Hemoglobin 27.7 PG Mean Corpuscular Hemoglobin Concent 34.0 % Red Cell Distribution Width 15.3 % Platelet Count 230 TH/MM3 Mean Platelet Volume 6.7 FL Neutrophils (%) (Auto) 63.7 % Lymphocytes (%) (Auto) 21.7 % Monocytes (%) (Auto) 11.5 % Eosinophils (%) (Auto) 2.6 % Basophils (%) (Auto) 0.5 % Neutrophils # (Auto) 4.1 TH/MM3 Lymphocytes # (Auto) 1.4 TH/MM3 Monocytes # (Auto) 0.7 TH/MM3 Eosinophils # (Auto) 0.2 TH/MM3 Basophils # (Auto) 0.0 TH/MM3 CBC Comment DIFF FINAL Differential Comment Blood Urea Nitrogen 56 MG/DL Creatinine 7.94 MG/DL Random Glucose 100 MG/DL Albumin 2.5 GM/DL Calcium Level 8.3 MG/DL Phosphorus Level 4.8 MG/DL Sodium Level 134 MEQ/L Potassium Level 4.4 MEQ/L Chloride Level 97 MEQ/L Carbon Dioxide Level 29.1 MEQ/L Anion Gap 8 MEQ/L Estimat Glomerular Filtration Rate 8 ML/MIN Total Creatine Kinase 3969 U/L Creatine Kinase MB 5.5 NG/ML Creatine Kinase MB % 0.1 % Imaging Last Impressions Lumbar Spine MRI 10/23/17 1608 Signed Impressions: Service Date/Time: Monday, October 23, 2017 16:34 - CONCLUSION: Abnormal erector spinae on the left. Not sure exactly what the etiology of this is. This could be myositis or denervation. With the history of endocarditis and inflammatory process is suspected. There is no abscess as yet. Renaldo Erickson MD FACR Thoracic Spine MRI 10/23/17 0000 Signed Impressions: Service Date/Time: Monday, October 23, 2017 15:40 - CONCLUSION: Suspected degenerative change of the lower thoracic spine at the T8-T9 to T10-T11 levels as described above. There is some kyphosis in this region. The kyphosis was present on a prior process tech image for a CT of the abdomen performed on 07/04/2017. These changes appear chronic. There is a focal right disc protrusion at the T10-T11 level with some degree of superior extrusion resulting in moderate narrowing of the thecal sac at this level. Kendell Tellez MD Renal Ultrasound 10/21/17 0000 Signed Impressions: Service Date/Time: September 11:21 - CONCLUSION: 1. Minimal right sided pelviectasis which may be residual in this patient with history of recent right hydronephrosis. 2. Otherwise, no evidence for obstructive uropathy. 3. Subcentimeter cyst in the inferior pole of the left kidney. Salvatore Laurent MD Abdomen/Pelvis CT 10/21/17 0000 Signed Impressions: Service Date/Time: Sunday, October 22, 2017 20:09 - CONCLUSION: 1. No evidence for obstructive uropathy on the current exam. Tiny bilateral nonobstructing renal calculi. Minimal anasarca. No bowel obstruction, free air. Trace free fluid. Mcleod catheter in bladder. 2. Stomach distended with air fluid level. Yves Yuen MD Head CT 10/20/17 1136 Signed Impressions: Service Date/Time: Friday, October 20, 2017 12:01 - CONCLUSION: Negative for an acute process. Renaldo Erickson MD FACR Chest X-Ray 10/20/17 1136 Signed Impressions: Service Date/Time: Friday, October 20, 2017 11:54 - CONCLUSION: No acute disease. Renaldo Erickson MD FACR Cervical Spine CT 10/20/17 0000 Signed Impressions: Service Date/Time: Friday, October 20, 2017 12:01 - CONCLUSION: No acute bony injury of the cervical spine Kendell Aguilar MD Last Impressions Head CT 10/20/17 1136 Signed Impressions: Service Date/Time: Friday, October 20, 2017 12:01 - CONCLUSION: Negative for an acute process. Renaldo Erickson MD FACR Chest X-Ray 10/20/17 1136 Signed Impressions: Service Date/Time: Friday, October 20, 2017 11:54 - CONCLUSION: No acute disease. Renaldo Erickson MD FACR Cervical Spine CT 10/20/17 0000 Signed Impressions: Service Date/Time: Friday, October 20, 2017 12:01 - CONCLUSION: No acute bony injury of the cervical spine Kendell Aguilar MD Objective Remarks General: NAD, AAox3 Chest: CTA Cardiac: Regular Abd: +BS, soft ND/NT Ext: Moving RLE better, left foot with minimal flexion A/P Problem List: (1) Rhabdomyolysis ICD Codes: M62.82 - Rhabdomyolysis Status: Acute Plan: Rhabdomyolysis, cocaine induced Acute renal failure, ATN, secondary to rhabdomyolysis Hyperkalemia Elevated LFTs and troponin. related to rhabdo IVDA HEP C 2/4 gpc blood cx's, coag negative, felt likely to be contamination left lumbar erector spinae muscle swelling/edema, felt to be myositis - Pt is a 37 y/o WM with history of polysubstance abuse/IVDA, hx of rhabdomyolysis, nephrolithiasis and had lithotripsy in August 2017 and Hepatitis C. - Pt presented to the ED at [facility] [place] on 10/20/17 with complaints of LE weakness and feeling unwell. He that he injected heroin and cocaine into his arm yesterday and then he woke up around 330AM this morning on the floor and felt like he couldn't move his legs. - Pt has had a few episodes of vomiting and feels that he has severe weakness in his legs and a pins and needles sensation. - Labs at admission revealed total CK 68,160, CK-MB 481.4, Cr 3.22/BUN 25, potassium 5.7 and Troponin 11.20. - Blood cultures were drawn in the ED and show 2/4 GPC. Pt was given vanco and rocephin in ED. - Pt has not had any fevers or chills and doesn't clinically look septic. Repeat blood cx taken 10/21 and ID consulted. Repeat cultures with NGTD It is not felt to be likely that the pt has endocarditis, case previously discussed with ID and they agree. - Pt was cont IVF and [facility]. - Pts GFR 8. CK trending down. - Pt had VasCath placed on 10/24 and started HD on 10/25 - Hypocalcemia is improving with replacement - Monitor strength in left foot, if it doesn't return to nml as the right foot then consider neuro eval and EMG/NCS - Small dose prn pain medication - Thorazine PRN hiccups - AM labs including renal function, CK and CK-MB - No HD today per nephrology, labs in AM to determine the need for further HD tomorrow - PT evaluated the pt and recommended rehab - DVT prophylaxis (2) Acute renal failure due to rhabdomyolysis ICD Codes: N17.9 - Acute kidney failure, unspecified; M62.82 - Rhabdomyolysis Status: Acute (3) IVDU (intravenous drug user) ICD Codes: F19.90 - Other psychoactive substance use, unspecified, uncomplicated Status: Chronic (4) Acute hyperkalemia ICD Codes: E87.5 - Hyperkalemia Status: Acute (5) Dehydration ICD Codes: E86.0 - Dehydration Status: Acute (6) Hepatitis C ICD Codes: B19.20 - Unspecified viral hepatitis C without hepatic coma Status: Chronic Assessment and Plan Patient examined. Assessment and plan formulated with Tracie Garcia PA-C. I agree with the above. Problem Qualifiers (1) Rhabdomyolysis: Tracie Garcia Oct 27, 2017 15:51 Lamont Garcia DO Oct 30, 2017 14:31
[2017-10-27] MEDS: FLUCONAZOLE 100 MG TAB PO SCH (16:46)
[2017-10-27] MEDS: traZODone HCL 100 MG TAB PO SCH (21:14)
[2017-10-28] VITALS (13 sets, daily range): BP systolic 127–135; BP diastolic 68–79; PULSE 76–94; RESP 18–20; TEMP 97.2–97.8; O2SAT 96–99
[2017-10-28] MEDS: CALCIUM ACETATE 667 MG CAP PO SCH ×3 (08:10→18:20)
[2017-10-28] MEDS: LORazepam 1 MG TAB PO SCH ×2 (08:10→20:57)
[2017-10-28] MEDS: CHOLECALCIFEROL (VIT D3) 5000 UNIT CAP PO SCH (08:10)
[2017-10-28] MEDS: DOCUSATE SODIUM 100 MG CAP PO SCH ×2 (08:10→20:57)
[2017-10-28] MEDS: CALCIUM CARBONATE 1.25 GM (CA 500 MG) TAB PO SCH ×3 (08:11→18:20)
[2017-10-28] MEDS: DULoxetine HCl DR 60 MG CAP PO SCH (08:11)
[2017-10-28] MEDS: SODIUM CHLORIDE 0.9% FLUSH 10 ML FLUSH IV FLUSH PRN (08:12)
[2017-10-28] MEDS: HEPARIN SODIUM - SQ 10,000 UNITS/ML VIAL SQ SCH ×2 (08:12→21:00)
[2017-10-28 10:14] LABS: ALBUMIN 2.6 GM/DL (3.4-5.0); BICARBONATE 28.2 MEQ/L (21.0-32.0); CALCIUM 8.1 MG/DL (8.5-10.1); CREATININE 8.5 MG/DL (0.60-1.30); PHOSPHORUS 5.9 MG/DL (2.5-4.9)
--- NOTE | 2017-10-28 10:43 | HHI.NPPN ---
Subjective Renal Failure: Acute Interval History Creatinine is worse, however he has excellent urine output. (Merly Moran) Review of Systems General Constitutional: Fatigue (Merly Moran) Gastrointestinal Gastrointestinal: Constipation (Merly Moran) Neuro Neuro Remarks pedal weakness bilaterally (Merly Moran) Objective Data Data Vital Signs Date Time Temp Pulse Resp B/P (MAP) Pulse Ox O2 Delivery O2 Flow Rate FiO2 10/28/17 08:02 86 10/28/17 08:00 Room Air 10/28/17 08:00 97.4 94 18 133/69 (90) 96 10/28/17 04:57 18 10/28/17 03:58 97.7 80 20 131/68 (89) 98 10/28/17 00:00 97.8 92 18 135/69 (91) 97 10/27/17 19:56 98.5 91 18 141/73 (95) 100 10/27/17 16:03 90 10/27/17 16:00 97.6 75 18 144/80 (101) 100 10/27/17 14:18 90 140/67 (91) 10/27/17 12:00 97.7 98 18 141/85 (103) 97 10/27/17 11:58 105 (Merly Moran) -: 10/27/17 0915 10/28/17 0910 Imaging Last Impressions Catheter Placement X-Ray 10/25/17 0800 Signed Impressions: Service Date/Time: Wednesday, October 25, 2017 10:12 - CONCLUSION: Uncomplicated line placement as above. Serafin Grant Jr., MD Lumbar Spine MRI 10/23/17 1608 Signed Impressions: Service Date/Time: Monday, October 23, 2017 16:34 - CONCLUSION: Abnormal erector spinae on the left. Not sure exactly what the etiology of this is. This could be myositis or denervation. With the history of endocarditis and inflammatory process is suspected. There is no abscess as yet. Renaldo Erickson MD FACR Thoracic Spine MRI 10/23/17 0000 Signed Impressions: Service Date/Time: Monday, October 23, 2017 15:40 - CONCLUSION: Suspected degenerative change of the lower thoracic spine at the T8-T9 to T10-T11 levels as described above. There is some kyphosis in this region. The kyphosis was present on a prior radar mechanic image for a CT of the abdomen performed on 07/04/2017. These changes appear chronic. There is a focal right disc protrusion at the T10-T11 level with some degree of superior extrusion resulting in moderate narrowing of the thecal sac at this level. Kendell Tellez MD Renal Ultrasound 10/21/17 0000 Signed Impressions: Service Date/Time: September 11:21 - CONCLUSION: 1. Minimal right sided pelviectasis which may be residual in this patient with history of recent right hydronephrosis. 2. Otherwise, no evidence for obstructive uropathy. 3. Subcentimeter cyst in the inferior pole of the left kidney. Salvatore Laurent MD Abdomen/Pelvis CT 10/21/17 0000 Signed Impressions: Service Date/Time: Sunday, October 22, 2017 20:09 - CONCLUSION: 1. No evidence for obstructive uropathy on the current exam. Tiny bilateral nonobstructing renal calculi. Minimal anasarca. No bowel obstruction, free air. Trace free fluid. Mcleod catheter in bladder. 2. Stomach distended with air fluid level. Yves Yuen MD Head CT 10/20/17 1136 Signed Impressions: Service Date/Time: Friday, October 20, 2017 12:01 - CONCLUSION: Negative for an acute process. Renaldo Erickson MD FACR Chest X-Ray 10/20/17 1136 Signed Impressions: Service Date/Time: Friday, October 20, 2017 11:54 - CONCLUSION: No acute disease. Renaldo Erickson MD FACR Cervical Spine CT 10/20/17 0000 Signed Impressions: Service Date/Time: Friday, October 20, 2017 12:01 - CONCLUSION: No acute bony injury of the cervical spine Kendell Aguilar MD Tubes & Lines: Vas-Cath, Mcleod (Merly Moran) Physical Exam General Appearance: Well Developed, Well Nourished, No Acute Distress, Comfortable (Merly MoranP) Eyes Eye Exam: Pupils Equal, Pupils Reactive (Merly Moran) Neck Neck Exam: Neck Supple, Trachea Midline (Merly Moran) Pulmonary Resp Exam: Clear Bilaterally, Breath Sounds Equal (Merly Moran) Cardiology CV Exam: Regular, Normal Sinus Rhythm, Good Perfusion (Merly Moran) Gastrointestinal/Abdomen GI Exam: Soft, Non-Tender, Bowel Sounds Present (Merly Moran) Musculoskeletal MS Exam: Joints Intact, Normal Tone, Good Strength (Merly Moran) Integumentary Skin Exam: Clear, Warm, Dry, Intact (Merly Moran) Extremeties Extremities Exam: No Edema, Pedal Pulses Palpable (Merly Moran) Neurologic Neuro Exam: Alert, Awake, Oriented, Speech Clear (Merly Moran) Psychiatric Psych Exam: Appropriate Responses (Merly Moran) Assessment/Plan Discussed Condition With: Patient Assessment Summary: VIVIAN/Acute Renal Failure, Acute Tubular Necrosis, Vitamin D Defeciency Electrolyte Assessment: Hypocalcemia, Metabolic Acidosis Problem List: (1) Acute renal failure (ARF) ICD Codes: N17.9 - Acute kidney failure, unspecified Status: Acute Plan: Baseline creatinine of 1 VIVIAN due to rhabdomyolysis and sepsis and ATN Vascath placed 10/25. HD 10/25 (1L UF) and 10/26 (1 L UF) Creatinine is worse today, however he has excellent urine output Hold HD today, repeat labs tomorrow HD if needed Wednesday Off IVF Avoid nephrotoxic agents, renally dose appropriate to renal status Stop calcium acetate On fluconazole for yeast in urine (2) Rhabdomyolysis ICD Codes: M62.82 - Rhabdomyolysis Status: Acute Plan: Serial CPK monitoring, improving s/p Aggressive fluid resuscitation Monitor renal function post dialysis Having persistent left leg weakness/foot drop, consider neurology evaluation (3) Sepsis ICD Codes: A41.9 - Sepsis, unspecified organism Plan: staph, he admits to using dirty needles ID following Echo reviewed, EF 55-60%,. no vegetation repeat culture negative (4) Hypocalcemia ICD Codes: E83.51 - Hypocalcemia Plan: Has Severe vitamin D deficiency Continue replacement of 5000 units per day Also has Calcium replacement ordered (5) IVDU (intravenous drug user) ICD Codes: F19.90 - Other psychoactive substance use, unspecified, uncomplicated Status: Chronic Plan: Discussed cessation Avoid narcotic use (6) Hyperkalemia ICD Codes: E87.5 - Hyperkalemia Plan: corrected, monitor for recurrence (7) Hepatitis C ICD Codes: B19.20 - Unspecified viral hepatitis C without hepatic coma Status: Chronic Plan: Untreated (Merly Moran) Plan patient was seen and examined. Excellent urine output. Creatinine is higher today, but we deferred dialysis. Repeat renal panel tomorrow. If creatinine is higher, dialysis tomorrow without ultrafiltration. Avoid nephrotoxins. Diagnosis is VIVIAN due to rhabdomyolysis, we are hoping that renal function will improve, and he will not need halfway dialysis. (Jacek Garcia MD) Problem Qualifiers (1) Acute renal failure (ARF): Qualified Codes: N17.9 - Acute kidney failure, unspecified Merly Moran Oct 28, 2017 10:43 Jacek Garcia MD Oct 28, 2017 14:28
--- NOTE | 2017-10-28 16:14 | HHI.PR ---
Subjective Remarks Patient offers no new concerns/complaints patient continues to have good urine output Objective Vitals Vital Signs Date Time Temp Pulse Resp B/P (MAP) Pulse Ox O2 Delivery O2 Flow Rate FiO2 10/28/17 12:03 76 10/28/17 12:00 97.4 76 20 128/70 (89) 98 10/28/17 10:05 97 21 10/28/17 08:02 86 10/28/17 08:00 Room Air 10/28/17 08:00 97.4 94 18 133/69 (90) 96 10/28/17 04:57 18 10/28/17 03:58 97.7 80 20 131/68 (89) 98 10/28/17 00:00 97.8 92 18 135/69 (91) 97 10/27/17 19:56 98.5 91 18 141/73 (95) 100 10/27/17 16:03 90 10/27/17 16:00 97.6 75 18 144/80 (101) 100 Result Diagram: 10/27/17 0915 10/28/17 0910 Other Results Laboratory Tests Test 10/25/17 20:22 10/26/17 07:45 10/26/17 14:30 10/27/17 09:15 Hepatitis A IgM Antibody NONREACTIVE Hepatitis B Surface Antigen NONREACTIVE Hepatitis B Core IgM Antibody NONREACTIVE Hepatitis C IgG Antibody REACTIVE White Blood Count 7.7 TH/MM3 6.4 TH/MM3 Red Blood Count 4.99 MIL/MM3 5.16 MIL/MM3 Hemoglobin 13.8 GM/DL 14.3 GM/DL Hematocrit 39.9 % 42.0 % Mean Corpuscular Volume 79.8 FL 81.4 FL Mean Corpuscular Hemoglobin 27.7 PG 27.7 PG Mean Corpuscular Hemoglobin Concent 34.7 % 34.0 % Red Cell Distribution Width 15.1 % 15.3 % Platelet Count 214 TH/MM3 230 TH/MM3 Mean Platelet Volume 6.9 FL 6.7 FL Neutrophils (%) (Auto) 67.0 % 63.7 % Lymphocytes (%) (Auto) 18.1 % 21.7 % Monocytes (%) (Auto) 12.6 % 11.5 % Eosinophils (%) (Auto) 2.0 % 2.6 % Basophils (%) (Auto) 0.3 % 0.5 % Neutrophils # (Auto) 5.2 TH/MM3 4.1 TH/MM3 Lymphocytes # (Auto) 1.4 TH/MM3 1.4 TH/MM3 Monocytes # (Auto) 1.0 TH/MM3 0.7 TH/MM3 Eosinophils # (Auto) 0.2 TH/MM3 0.2 TH/MM3 Basophils # (Auto) 0.0 TH/MM3 0.0 TH/MM3 CBC Comment DIFF FINAL DIFF FINAL Differential Comment Total Creatine Kinase 6137 U/L 3969 U/L Creatine Kinase MB 8.5 NG/ML 5.5 NG/ML Creatine Kinase MB % 0.1 % 0.1 % Urine Color LIGHT-YELLOW Urine Turbidity CLEAR Urine pH 8.0 Urine Specific [place] 1.004 Urine Protein TRACE mg/dL Urine Glucose (UA) NEG mg/dL Urine Ketones NEG mg/dL Urine Occult Blood MOD Urine Nitrite NEG Urine Bilirubin NEG Urine Urobilinogen LESS THAN 2.0 MG/DL Urine Leukocyte Esterase LARGE Urine RBC 4 /hpf Urine WBC 18 /hpf Urine Squamous Epithelial Cells 3 /hpf Urine Bacteria OCC /hpf Microscopic Urinalysis Comment CULTURE INDICATED Blood Urea Nitrogen 56 MG/DL Creatinine 7.94 MG/DL Random Glucose 100 MG/DL Albumin 2.5 GM/DL Calcium Level 8.3 MG/DL Phosphorus Level 4.8 MG/DL Sodium Level 134 MEQ/L Potassium Level 4.4 MEQ/L Chloride Level 97 MEQ/L Carbon Dioxide Level 29.1 MEQ/L Anion Gap 8 MEQ/L Estimat Glomerular Filtration Rate 8 ML/MIN Test 10/28/17 09:10 Blood Urea Nitrogen 67 MG/DL Creatinine 8.50 MG/DL Random Glucose 94 MG/DL Albumin 2.6 GM/DL Calcium Level 8.1 MG/DL Phosphorus Level 5.9 MG/DL Sodium Level 137 MEQ/L Potassium Level 4.6 MEQ/L Chloride Level 98 MEQ/L Carbon Dioxide Level 28.2 MEQ/L Anion Gap 11 MEQ/L Estimat Glomerular Filtration Rate 7 ML/MIN Total Creatine Kinase 2223 U/L Creatine Kinase MB 5.4 NG/ML Creatine Kinase MB % 0.2 % Imaging Last Impressions Lumbar Spine MRI 10/23/17 1608 Signed Impressions: Service Date/Time: Monday, October 23, 2017 16:34 - CONCLUSION: Abnormal erector spinae on the left. Not sure exactly what the etiology of this is. This could be myositis or denervation. With the history of endocarditis and inflammatory process is suspected. There is no abscess as yet. Renaldo Erickson MD FACR Thoracic Spine MRI 10/23/17 0000 Signed Impressions: Service Date/Time: Monday, October 23, 2017 15:40 - CONCLUSION: Suspected degenerative change of the lower thoracic spine at the T8-T9 to T10-T11 levels as described above. There is some kyphosis in this region. The kyphosis was present on a prior care clinician image for a CT of the abdomen performed on 07/04/2017. These changes appear chronic. There is a focal right disc protrusion at the T10-T11 level with some degree of superior extrusion resulting in moderate narrowing of the thecal sac at this level. Kendell Tellez MD Renal Ultrasound 10/21/17 0000 Signed Impressions: Service Date/Time: September 11:21 - CONCLUSION: 1. Minimal right sided pelviectasis which may be residual in this patient with history of recent right hydronephrosis. 2. Otherwise, no evidence for obstructive uropathy. 3. Subcentimeter cyst in the inferior pole of the left kidney. Salvatore Laurent MD Abdomen/Pelvis CT 10/21/17 0000 Signed Impressions: Service Date/Time: Sunday, October 22, 2017 20:09 - CONCLUSION: 1. No evidence for obstructive uropathy on the current exam. Tiny bilateral nonobstructing renal calculi. Minimal anasarca. No bowel obstruction, free air. Trace free fluid. Mcleod catheter in bladder. 2. Stomach distended with air fluid level. Yves Yuen MD Head CT 10/20/17 1136 Signed Impressions: Service Date/Time: Friday, October 20, 2017 12:01 - CONCLUSION: Negative for an acute process. Renaldo Erickson MD FACR Chest X-Ray 10/20/176 Signed Impressions: Service Date/Time: Friday, October 20, 2017 11:54 - CONCLUSION: No acute disease. Renaldo Erickson MD FACR Cervical Spine CT 10/20/17 0000 Signed Impressions: Service Date/Time: Friday, October 20, 2017 12:01 - CONCLUSION: No acute bony injury of the cervical spine Kendell Aguilar MD Last Impressions Head CT 10/20/17 1136 Signed Impressions: Service Date/Time: Friday, October 20, 2017 12:01 - CONCLUSION: Negative for an acute process. Renaldo Erickson MD FACR Chest X-Ray 10/20/17 1136 Signed Impressions: Service Date/Time: Friday, October 20, 2017 11:54 - CONCLUSION: No acute disease. Renaldo Erickson MD FACR Cervical Spine CT 10/20/17 0000 Signed Impressions: Service Date/Time: Friday, October 20, 2017 12:01 - CONCLUSION: No acute bony injury of the cervical spine Kendell Aguilar MD Objective Remarks General: NAD, AAox3 Chest: CTA Cardiac: Regular Abd: +BS, soft ND/NT Ext: Moving RLE better, left foot with minimal flexion A/P Problem List: (1) Rhabdomyolysis ICD Codes: M62.82 - Rhabdomyolysis Status: Acute Plan: Rhabdomyolysis, cocaine induced Acute renal failure, ATN, secondary to rhabdomyolysis Hyperkalemia Elevated LFTs and troponin. related to rhabdo IVDA HEP C 2/4 gpc blood cx's, coag negative, felt likely to be contamination left lumbar erector spinae muscle swelling/edema, felt to be myositis - Pt is a 37 y/o WM with history of polysubstance abuse/IVDA, hx of rhabdomyolysis, nephrolithiasis and had lithotripsy in August 2017 and Hepatitis C. - Pt presented to the ED at [facility] [place] on 10/20/17 with complaints of LE weakness and feeling unwell. He that he injected heroin and cocaine into his arm yesterday and then he woke up around 330AM this morning on the floor and felt like he couldn't move his legs. - Pt has had a few episodes of vomiting and feels that he has severe weakness in his legs and a pins and needles sensation. - Labs at admission revealed total CK 68,160, CK-MB 481.4, Cr 3.22/BUN 25, potassium 5.7 and Troponin 11.20. - Blood cultures were drawn in the ED and show 2/4 GPC. Pt was given vanco and rocephin in ED. - Pt has not had any fevers or chills and doesn't clinically look septic. Repeat blood cx taken 10/21 and ID consulted. Repeat cultures with NGTD It is not felt to be likely that the pt has endocarditis, case previously discussed with ID and they agree. - Pt was cont IVF and Mcleod. - Pts GFR 7. CK trending down. - Pt had VasCath placed on 10/24 and started HD on 10/25 - Hypocalcemia is improving with replacement - Monitor strength in left foot, if it doesn't return to nml as the right foot then consider neuro eval and EMG/NCS - Small dose prn pain medication - Thorazine PRN hiccups - AM labs including BMP and CK - No HD today per nephrology, labs in AM to determine the need for further HD tomorrow - discussed with nephrology, nephrology would like to monitor renal function over the weekend then make decision on need for HD after DC - PT evaluated the pt and recommended rehab - DVT prophylaxis (2) Acute renal failure due to rhabdomyolysis ICD Codes: N17.9 - Acute kidney failure, unspecified; M62.82 - Rhabdomyolysis Status: Acute (3) IVDU (intravenous drug user) ICD Codes: F19.90 - Other psychoactive substance use, unspecified, uncomplicated Status: Chronic (4) Acute hyperkalemia ICD Codes: E87.5 - Hyperkalemia Status: Acute (5) Dehydration ICD Codes: E86.0 - Dehydration Status: Acute (6) Hepatitis C ICD Codes: B19.20 - Unspecified viral hepatitis C without hepatic coma Status: Chronic Assessment and Plan Patient examined. Assessment and plan formulated with Tracie Garcia PA-C. I agree with the above. Problem Qualifiers (1) Rhabdomyolysis: Tracie Garcia Oct 28, 2017 16:14 Lamont Garcia DO Oct 30, 2017 14:31
[2017-10-28] MEDS: FLUCONAZOLE 100 MG TAB PO SCH (17:09)
[2017-10-28] MEDS: traZODone HCL 100 MG TAB PO SCH (21:34)
[2017-10-29] VITALS (11 sets, daily range): BP systolic 101–146; BP diastolic 58–85; PULSE 76–94; RESP 16–19; TEMP 97.3–98; O2SAT 96–100
[2017-10-29 08:16] LABS: BICARBONATE 26.6 MEQ/L (21.0-32.0); CALCIUM 8.6 MG/DL (8.5-10.1); CREATININE 8.2 MG/DL (0.60-1.30); MAGNESIUM 2.3 MG/DL (1.5-2.5)
[2017-10-29 08:28] LABS: PHOSPHORUS 5.9 MG/DL (2.5-4.9)
[2017-10-29] MEDS: HEPARIN SODIUM - SQ 10,000 UNITS/ML VIAL SQ SCH ×2 (08:37→22:36)
[2017-10-29] MEDS: DOCUSATE SODIUM 100 MG CAP PO SCH ×2 (08:38→22:35)
[2017-10-29] MEDS: CHOLECALCIFEROL (VIT D3) 5000 UNIT CAP PO SCH (08:38)
[2017-10-29] MEDS: LORazepam 1 MG TAB PO SCH ×2 (08:38→22:35)
[2017-10-29] MEDS: CALCIUM ACETATE 667 MG CAP PO SCH ×3 (08:38→17:33)
[2017-10-29] MEDS: CALCIUM CARBONATE 1.25 GM (CA 500 MG) TAB PO SCH ×3 (08:38→17:32)
[2017-10-29] MEDS: DULoxetine HCl DR 60 MG CAP PO SCH (08:38)
--- NOTE | 2017-10-29 11:03 | HHI.PR ---
Subjective Remarks Patient offers no new concerns/complaints Patient reports he is walking much better now Objective Vitals Vital Signs Date Time Temp Pulse Resp B/P (MAP) Pulse Ox O2 Delivery O2 Flow Rate FiO2 10/29/17 09:13 99 21 10/29/17 08:00 97.3 79 19 130/85 (100) 98 10/29/17 04:00 97.3 79 18 134/74 (94) 100 10/29/17 03:47 81 10/29/17 00:00 97.6 88 16 126/58 (80) 96 10/28/17 23:49 88 10/28/17 20:54 99 10/28/17 20:00 97.2 78 18 129/79 (96) 99 10/28/17 20:00 Room Air 10/28/17 19:48 84 10/28/17 16:05 87 10/28/17 16:00 97.8 82 20 127/75 (92) 98 10/28/17 12:03 76 10/28/17 12:00 97.4 76 20 128/70 (89) 98 Result Diagram: 10/27/17 0915 10/29/17 0650 Other Results Laboratory Tests Test 10/26/17 14:30 10/27/17 09:15 10/28/17 09:10 10/29/17 06:50 Urine Color LIGHT-YELLOW Urine Turbidity CLEAR Urine pH 8.0 Urine Specific [place] 1.004 Urine Protein TRACE mg/dL Urine Glucose (UA) NEG mg/dL Urine Ketones NEG mg/dL Urine Occult Blood MOD Urine Nitrite NEG Urine Bilirubin NEG Urine Urobilinogen LESS THAN 2.0 MG/DL Urine Leukocyte Esterase LARGE Urine RBC 4 /hpf Urine WBC 18 /hpf Urine Squamous Epithelial Cells 3 /hpf Urine Bacteria OCC /hpf Microscopic Urinalysis Comment CULTURE INDICATED White Blood Count 6.4 TH/MM3 Red Blood Count 5.16 MIL/MM3 Hemoglobin 14.3 GM/DL Hematocrit 42.0 % Mean Corpuscular Volume 81.4 FL Mean Corpuscular Hemoglobin 27.7 PG Mean Corpuscular Hemoglobin Concent 34.0 % Red Cell Distribution Width 15.3 % Platelet Count 230 TH/MM3 Mean Platelet Volume 6.7 FL Neutrophils (%) (Auto) 63.7 % Lymphocytes (%) (Auto) 21.7 % Monocytes (%) (Auto) 11.5 % Eosinophils (%) (Auto) 2.6 % Basophils (%) (Auto) 0.5 % Neutrophils # (Auto) 4.1 TH/MM3 Lymphocytes # (Auto) 1.4 TH/MM3 Monocytes # (Auto) 0.7 TH/MM3 Eosinophils # (Auto) 0.2 TH/MM3 Basophils # (Auto) 0.0 TH/MM3 CBC Comment DIFF FINAL Differential Comment Blood Urea Nitrogen 56 MG/DL 67 MG/DL 73 MG/DL Creatinine 7.94 MG/DL 8.50 MG/DL 8.20 MG/DL Random Glucose 100 MG/DL 94 MG/DL 88 MG/DL Albumin 2.5 GM/DL 2.6 GM/DL Calcium Level 8.3 MG/DL 8.1 MG/DL 8.6 MG/DL Phosphorus Level 4.8 MG/DL 5.9 MG/DL 5.9 MG/DL Sodium Level 134 MEQ/L 137 MEQ/L 138 MEQ/L Potassium Level 4.4 MEQ/L 4.6 MEQ/L 4.5 MEQ/L Chloride Level 97 MEQ/L 98 MEQ/L 102 MEQ/L Carbon Dioxide Level 29.1 MEQ/L 28.2 MEQ/L 26.6 MEQ/L Anion Gap 8 MEQ/L 11 MEQ/L 9 MEQ/L Estimat Glomerular Filtration Rate 8 ML/MIN 7 ML/MIN 7 ML/MIN Total Creatine Kinase 3969 U/L 2223 U/L 1382 U/L Creatine Kinase MB 5.5 NG/ML 5.4 NG/ML 6.5 NG/ML Creatine Kinase MB % 0.1 % 0.2 % 0.5 % Magnesium Level 2.3 MG/DL Imaging Last Impressions Lumbar Spine MRI 10/23/17 1608 Signed Impressions: Service Date/Time: Monday, October 23, 2017 16:34 - CONCLUSION: Abnormal erector spinae on the left. Not sure exactly what the etiology of this is. This could be myositis or denervation. With the history of endocarditis and inflammatory process is suspected. There is no abscess as yet. Renaldo Erickson MD FACR Thoracic Spine MRI 10/23/17 0000 Signed Impressions: Service Date/Time: Monday, October 23, 2017 15:40 - CONCLUSION: Suspected degenerative change of the lower thoracic spine at the T8-T9 to T10-T11 levels as described above. There is some kyphosis in this region. The kyphosis was present on a prior field traffic investigator image for a CT of the abdomen performed on 07/04/2017. These changes appear chronic. There is a focal right disc protrusion at the T10-T11 level with some degree of superior extrusion resulting in moderate narrowing of the thecal sac at this level. Kendell Tellez MD Renal Ultrasound 10/21/17 0000 Signed Impressions: Service Date/Time: September 11:21 - CONCLUSION: 1. Minimal right sided pelviectasis which may be residual in this patient with history of recent right hydronephrosis. 2. Otherwise, no evidence for obstructive uropathy. 3. Subcentimeter cyst in the inferior pole of the left kidney. Salvatore Laurent MD Abdomen/Pelvis CT 10/21/17 0000 Signed Impressions: Service Date/Time: Sunday, October 22, 2017 20:09 - CONCLUSION: 1. No evidence for obstructive uropathy on the current exam. Tiny bilateral nonobstructing renal calculi. Minimal anasarca. No bowel obstruction, free air. Trace free fluid. Mcleod catheter in bladder. 2. Stomach distended with air fluid level. Yves Yuen MD Head CT 10/20/17 1136 Signed Impressions: Service Date/Time: Friday, October 20, 2017 12:01 - CONCLUSION: Negative for an acute process. Renaldo Erickson MD FACR Chest X-Ray 10/20/171135 Signed Impressions: Service Date/Time: Friday, October 20, 2017 11:54 - CONCLUSION: No acute disease. Renaldo Erickson MD FACR Cervical Spine CT 10/20/17 0000 Signed Impressions: Service Date/Time: Friday, October 20, 2017 12:01 - CONCLUSION: No acute bony injury of the cervical spine Kendell Aguilar MD Last Impressions Head CT 10/20/17 1136 Signed Impressions: Service Date/Time: Friday, October 20, 2017 12:01 - CONCLUSION: Negative for an acute process. Renaldo Erickson MD FACR Chest X-Ray 10/20/17 1136 Signed Impressions: Service Date/Time: Friday, October 20, 2017 11:54 - CONCLUSION: No acute disease. Renaldo Erickson MD FACR Cervical Spine CT 10/20/17 0000 Signed Impressions: Service Date/Time: Friday, October 20, 2017 12:01 - CONCLUSION: No acute bony injury of the cervical spine Kendell Aguilar MD Objective Remarks General: NAD, AAox3 Chest: CTA Cardiac: Regular Abd: +BS, soft ND/NT Ext: Moving RLE better, left foot with minimal flexion A/P Problem List: (1) Rhabdomyolysis ICD Codes: M62.82 - Rhabdomyolysis Status: Acute Plan: Rhabdomyolysis, cocaine induced Acute renal failure, ATN, secondary to rhabdomyolysis Hyperkalemia Elevated LFTs and troponin. related to rhabdo IVDA HEP C 2/4 gpc blood cx's, coag negative, felt likely to be contamination left lumbar erector spinae muscle swelling/edema, felt to be myositis - Pt is a 37 y/o WM with history of polysubstance abuse/IVDA, hx of rhabdomyolysis, nephrolithiasis and had lithotripsy in August 2017 and Hepatitis C. - Pt presented to the ED at [facility] [place] on 10/20/17 with complaints of LE weakness and feeling unwell. He that he injected heroin and cocaine into his arm yesterday and then he woke up around 330AM this morning on the floor and felt like he couldn't move his legs. - Pt has had a few episodes of vomiting and feels that he has severe weakness in his legs and a pins and needles sensation. - Labs at admission revealed total CK 68,160, CK-MB 481.4, Cr 3.22/BUN 25, potassium 5.7 and Troponin 11.20. - Blood cultures were drawn in the ED and show 2/4 GPC. Pt was given vanco and rocephin in ED. - Pt has not had any fevers or chills and doesn't clinically look septic. Repeat blood cx taken 10/21 and ID consulted. Repeat cultures with NGTD It is not felt to be likely that the pt has endocarditis, case previously discussed with ID and they agree. - Pt was cont IVF and Mcleod. - Pts GFR 7. CK trending down. - Pt had VasCath placed on 10/24 and started HD on 10/25 - Hypocalcemia is improving with replacement - Monitor strength in left foot, if it doesn't return to nml as the right foot then consider neuro eval and EMG/NCS - Small dose prn pain medication - Thorazine PRN hiccups - AM labs including BMP and CK - HD per nephrology - discussed with nephrology, nephrology would like to monitor renal function over the weekend then make decision on need for HD after DC - PT evaluated the pt and recommended home with home PT - DVT prophylaxis (2) Acute renal failure due to rhabdomyolysis ICD Codes: N17.9 - Acute kidney failure, unspecified; M62.82 - Rhabdomyolysis Status: Acute (3) IVDU (intravenous drug user) ICD Codes: F19.90 - Other psychoactive substance use, unspecified, uncomplicated Status: Chronic Plan: Patient counselled and encouraged to abstain patient informed about [facility] behavioral health services for substance abuse, but reports he is unable to attend meeting due to his work schedule will continue to provide information and provide narcotic anonymous information (4) Acute hyperkalemia ICD Codes: E87.5 - Hyperkalemia Status: Acute (5) Dehydration ICD Codes: E86.0 - Dehydration Status: Acute (6) Hepatitis C ICD Codes: B19.20 - Unspecified viral hepatitis C without hepatic coma Status: Chronic Assessment and Plan Patient examined. Assessment and plan formulated with Tracie Garcia PA-C. I agree with the above. Problem Qualifiers (1) Rhabdomyolysis: Tracie Garcia Oct 29, 2017 11:03 Lamont Garcia DO Oct 30, 2017 14:32
--- NOTE | 2017-10-29 11:12 | HHI.NPPN ---
Subjective Renal Failure: Acute Interval History Ambulatory to bathroom. Creatinine slightly better. (Merly Moran) Review of Systems General Constitutional: Fatigue (Merly Moran) Gastrointestinal Gastrointestinal: Constipation (Merly Moran) Neuro Neuro Remarks pedal weakness bilaterally (Merly Moran) Objective Data Data Vital Signs Date Time Temp Pulse Resp B/P (MAP) Pulse Ox O2 Delivery O2 Flow Rate FiO2 10/29/17 09:13 99 21 10/29/17 08:00 97.3 79 19 130/85 (100) 98 10/29/17 04:00 97.3 79 18 134/74 (94) 100 10/29/17 03:47 81 10/29/17 00:00 97.6 88 16 126/58 (80) 96 10/28/17 23:49 88 10/28/17 20:54 99 10/28/17 20:00 97.2 78 18 129/79 (96) 99 10/28/17 20:00 Room Air 10/28/17 19:48 84 10/28/17 16:05 87 10/28/17 16:00 97.8 82 20 127/75 (92) 98 10/28/17 12:03 76 10/28/17 12:00 97.4 76 20 128/70 (89) 98 (Merly Moran) -: 10/27/17 0915 10/29/17 0650 Imaging Last Impressions Catheter Placement X-Ray 10/25/17 0800 Signed Impressions: Service Date/Time: Wednesday, October 25, 2017 10:12 - CONCLUSION: Uncomplicated line placement as above. Serafin Grant Jr., MD Lumbar Spine MRI 10/23/17 1608 Signed Impressions: Service Date/Time: Monday, October 23, 2017 16:34 - CONCLUSION: Abnormal erector spinae on the left. Not sure exactly what the etiology of this is. This could be myositis or denervation. With the history of endocarditis and inflammatory process is suspected. There is no abscess as yet. Renaldo Erickson MD FACR Thoracic Spine MRI 10/23/17 0000 Signed Impressions: Service Date/Time: Monday, October 23, 2017 15:40 - CONCLUSION: Suspected degenerative change of the lower thoracic spine at the T8-T9 to T10-T11 levels as described above. There is some kyphosis in this region. The kyphosis was present on a prior child advocate image for a CT of the abdomen performed on 07/04/2017. These changes appear chronic. There is a focal right disc protrusion at the T10-T11 level with some degree of superior extrusion resulting in moderate narrowing of the thecal sac at this level. Kendell Tellez MD Renal Ultrasound 10/21/17 0000 Signed Impressions: Service Date/Time: September 11:21 - CONCLUSION: 1. Minimal right sided pelviectasis which may be residual in this patient with history of recent right hydronephrosis. 2. Otherwise, no evidence for obstructive uropathy. 3. Subcentimeter cyst in the inferior pole of the left kidney. Salvatore Laurent MD Abdomen/Pelvis CT 10/21/17 0000 Signed Impressions: Service Date/Time: Sunday, October 22, 2017 20:09 - CONCLUSION: 1. No evidence for obstructive uropathy on the current exam. Tiny bilateral nonobstructing renal calculi. Minimal anasarca. No bowel obstruction, free air. Trace free fluid. Mcleod catheter in bladder. 2. Stomach distended with air fluid level. Yves Yuen MD Head CT 10/20/17 1136 Signed Impressions: Service Date/Time: Friday, October 20, 2017 12:01 - CONCLUSION: Negative for an acute process. Renaldo Erickson MD FACR Chest X-Ray 10/20/17 1136 Signed Impressions: Service Date/Time: Friday, October 20, 2017 11:54 - CONCLUSION: No acute disease. Renadlo Erickson MD FACR Cervical Spine CT 10/20/17 0000 Signed Impressions: Service Date/Time: Friday, October 20, 2017 12:01 - CONCLUSION: No acute bony injury of the cervical spine Kendell Aguilar MD Tubes & Lines: Vas-Cath (Merly Moran) Physical Exam General Appearance: Well Developed, Well Nourished, No Acute Distress, Comfortable (Merly Moran) Eyes Eye Exam: Pupils Equal, Pupils Reactive (Merly Moran) Neck Neck Exam: Neck Supple, Trachea Midline (Merly Moran) Pulmonary Resp Exam: Clear Bilaterally, Breath Sounds Equal (Merly Moran) Cardiology CV Exam: Regular, Normal Sinus Rhythm, Good Perfusion (Merly Moran) Gastrointestinal/Abdomen GI Exam: Soft, Non-Tender, Bowel Sounds Present (Merly Moran) Musculoskeletal MS Exam: Joints Intact, Normal Tone, Good Strength (Merly Moran) Integumentary Skin Exam: Clear, Warm, Dry, Intact (Merly Moran) Extremeties Extremities Exam: No Edema, Pedal Pulses Palpable (Merly Moran) Neurologic Neuro Exam: Alert, Awake, Oriented, Speech Clear (Merly Moran) Psychiatric Psych Exam: Appropriate Responses (Merly Moran) Assessment/Plan Discussed Condition With: Patient Assessment Summary: VIVIAN/Acute Renal Failure, Acute Tubular Necrosis, Vitamin D Defeciency Electrolyte Assessment: Hypocalcemia, Metabolic Acidosis Problem List: (1) Acute renal failure (ARF) ICD Codes: N17.9 - Acute kidney failure, unspecified Status: Acute Plan: Baseline creatinine of 1 VIVIAN due to rhabdomyolysis and sepsis and ATN Vascath placed 10/25. HD 10/25 (1L UF) and 10/26 (1 L UF) Creatinine is slightly better, excellent urine output He is in recovery phase follow renal function over the weekend. Remove vascath on Wednesday provided continued improvement. Off IVF Avoid nephrotoxic agents, renally dose appropriate to renal status On fluconazole for yeast in urine Resume calcium acetate with meals (2) Rhabdomyolysis ICD Codes: M62.82 - Rhabdomyolysis Status: Acute Plan: Serial CPK monitoring, improving s/p Aggressive fluid resuscitation Monitor renal function post dialysis Having persistent left leg weakness/foot drop, consider neurology evaluation (3) Sepsis ICD Codes: A41.9 - Sepsis, unspecified organism Plan: staph, he admits to using dirty needles ID following Echo reviewed, EF 55-60%,. no vegetation repeat culture negative (4) Hypocalcemia ICD Codes: E83.51 - Hypocalcemia Plan: Improving, Has Severe vitamin D deficiency Continue replacement of 5000 units per day Also has Calcium replacement ordered (5) IVDU (intravenous drug user) ICD Codes: F19.90 - Other psychoactive substance use, unspecified, uncomplicated Status: Chronic Plan: Discussed cessation Avoid narcotic use (6) Hyperkalemia ICD Codes: E87.5 - Hyperkalemia Plan: corrected, monitor for recurrence (7) Hepatitis C ICD Codes: B19.20 - Unspecified viral hepatitis C without hepatic coma Status: Chronic Plan: Untreated (Merly Moran) Plan patient was seen and examined. Agree with above assessment and plan. We are holding dialysis. (Jacek Garcia MD) Problem Qualifiers (1) Acute renal failure (ARF): Qualified Codes: N17.9 - Acute kidney failure, unspecified Merly Moran Oct 29, 2017 11:12 Jacek Garcia MD Nov 01, 2017 10:40
[2017-10-29] MEDS ORDERED: CALCIUM ACETATE 667 MG CAP PO SCH (13:00)
[2017-10-29] MEDS: FLUCONAZOLE 100 MG TAB PO SCH (15:00)
[2017-10-29] MEDS: traZODone HCL 100 MG TAB PO SCH (22:35)
[2017-10-29] MEDS: SODIUM CHLORIDE 0.9% FLUSH 10 ML FLUSH IV FLUSH PRN (22:36)
[2017-10-30] VITALS (7 sets, daily range): BP systolic 121–142; BP diastolic 67–85; PULSE 68–87; RESP 17–20; TEMP 97.1–98.2; O2SAT 96–100
[2017-10-30 07:31] LABS: ALBUMIN 2.7 GM/DL (3.4-5.0); BICARBONATE 24.8 MEQ/L (21.0-32.0); CALCIUM 8.6 MG/DL (8.5-10.1); CREATININE 7.63 MG/DL (0.60-1.30)
[2017-10-30] MEDS: LORazepam 1 MG TAB PO SCH ×2 (08:32→20:12)
[2017-10-30] MEDS: CHOLECALCIFEROL (VIT D3) 5000 UNIT CAP PO SCH (08:32)
[2017-10-30] MEDS: CALCIUM CARBONATE 1.25 GM (CA 500 MG) TAB PO SCH ×3 (08:32→18:36)
[2017-10-30] MEDS: DOCUSATE SODIUM 100 MG CAP PO SCH ×2 (08:32→20:11)
[2017-10-30] MEDS: HEPARIN SODIUM - SQ 10,000 UNITS/ML VIAL SQ SCH ×2 (08:33→20:12)
[2017-10-30] MEDS: CALCIUM ACETATE 667 MG CAP PO SCH ×3 (08:46→18:39)
[2017-10-30] MEDS: DULoxetine HCl DR 60 MG CAP PO SCH (08:52)
--- NOTE | 2017-10-30 11:28 | HHI.NPPN ---
Subjective Renal Failure: Acute Additional Remarks Patient is alert, no SOB, eating well. Review of Systems General Constitutional: Fatigue Gastrointestinal Gastrointestinal: Constipation Neuro Neuro Remarks pedal weakness bilaterally Objective Data Data Vital Signs Date Time Temp Pulse Resp B/P (MAP) Pulse Ox O2 Delivery O2 Flow Rate FiO2 10/30/17 08:00 97.9 82 20 137/85 (102) 98 10/30/17 04:00 98.2 81 18 135/67 (89) 96 10/30/17 04:00 76 10/30/17 01:42 Room Air 10/30/17 00:00 87 10/30/17 00:00 98.0 85 20 136/79 (98) 100 10/29/17 21:06 21 10/29/17 20:00 97.5 79 19 146/83 (104) 100 10/29/17 20:00 77 10/29/17 16:00 97.6 94 19 101/59 (73) 98 10/29/17 15:53 81 10/29/17 12:01 81 10/29/17 12:00 98.0 78 19 120/72 (88) 99 -: 10/27/17 0915 10/30/17 0535 Tubes & Lines: Vas-Cath Physical Exam General Appearance: Well Developed, Well Nourished, No Acute Distress, Comfortable Eyes Eye Exam: Pupils Equal, Pupils Reactive Neck Neck Exam: Neck Supple, Trachea Midline Pulmonary Resp Exam: Clear Bilaterally, Breath Sounds Equal Cardiology CV Exam: Regular, Normal Sinus Rhythm, Good Perfusion Gastrointestinal/Abdomen GI Exam: Soft, Non-Tender, Bowel Sounds Present Musculoskeletal MS Exam: Joints Intact, Normal Tone, Good Strength Integumentary Skin Exam: Clear, Warm, Dry, Intact Extremeties Extremities Exam: No Edema Neurologic Neuro Exam: Alert, Awake, Oriented, Speech Clear Psychiatric Psych Exam: Appropriate Responses Assessment/Plan Discussed Condition With: Patient Assessment Summary: VIVIAN/Acute Renal Failure, Acute Tubular Necrosis, Vitamin D Defeciency Electrolyte Assessment: Hypocalcemia, Metabolic Acidosis Problem List: (1) Acute renal failure (ARF) ICD Codes: N17.9 - Acute kidney failure, unspecified Status: Acute Plan: Baseline creatinine of 1 VIVIAN due to rhabdomyolysis and sepsis and ATN Vascath placed 10/25. HD 10/25 (1L UF) and 10/26 (1 L UF) Creatinine is slightly better, excellent urine output He is in recovery phase follow renal function. Remove vascath on Wednesday provided continued improvement. Off IVF Avoid nephrotoxic agents, renally dose appropriate to renal status On fluconazole for yeast in urine Resume calcium acetate with meals. Creatinine is slightly better. Told to drink more fluid. (2) Rhabdomyolysis ICD Codes: M62.82 - Rhabdomyolysis Status: Acute Plan: Serial CPK monitoring, improving s/p Aggressive fluid resuscitation Monitor renal function post dialysis Having persistent left leg weakness/foot drop, consider neurology evaluation (3) Sepsis ICD Codes: A41.9 - Sepsis, unspecified organism Plan: staph, he admits to using dirty needles ID following Echo reviewed, EF 55-60%,. no vegetation repeat culture negative (4) Hypocalcemia ICD Codes: E83.51 - Hypocalcemia Plan: Improving, Has Severe vitamin D deficiency Continue replacement of 5000 units per day Also has Calcium replacement ordered (5) IVDU (intravenous drug user) ICD Codes: F19.90 - Other psychoactive substance use, unspecified, uncomplicated Status: Chronic Plan: Discussed cessation Avoid narcotic use (6) Hyperkalemia ICD Codes: E87.5 - Hyperkalemia Plan: corrected, monitor for recurrence (7) Hepatitis C ICD Codes: B19.20 - Unspecified viral hepatitis C without hepatic coma Status: Chronic Plan: Untreated Problem Qualifiers (1) Acute renal failure (ARF): Qualified Codes: N17.9 - Acute kidney failure, unspecified Angelique Landaverde MD Oct 30, 2017 11:28
--- NOTE | 2017-10-30 13:44 | HHI.PR ---
Subjective Remarks No new complaints continues to make good amounts of urine Objective Vitals Vital Signs Date Time Temp Pulse Resp B/P (MAP) Pulse Ox O2 Delivery O2 Flow Rate FiO2 10/30/17 12:00 97.1 68 20 121/80 (94) 99 10/30/17 08:00 97.9 82 20 137/85 (102) 98 10/30/17 08:00 74 10/30/17 04:00 98.2 81 18 135/67 (89) 96 10/30/17 04:00 76 10/30/17 01:42 Room Air 10/30/17 00:00 87 10/30/17 00:00 98.0 85 20 136/79 (98) 100 10/29/17 21:06 21 10/29/17 20:00 97.5 79 19 146/83 (104) 100 10/29/17 20:00 77 10/29/17 16:00 97.6 94 19 101/59 (73) 98 10/29/17 15:53 81 Result Diagram: 10/27/17 0915 10/30/17 0535 Other Results Laboratory Tests Test 10/28/17 09:10 10/29/17 06:50 10/30/17 05:35 Blood Urea Nitrogen 67 MG/DL 73 MG/DL 82 MG/DL Creatinine 8.50 MG/DL 8.20 MG/DL 7.63 MG/DL Random Glucose 94 MG/DL 88 MG/DL 77 MG/DL Albumin 2.6 GM/DL 2.7 GM/DL Calcium Level 8.1 MG/DL 8.6 MG/DL 8.6 MG/DL Phosphorus Level 5.9 MG/DL 5.9 MG/DL 6.0 MG/DL Sodium Level 137 MEQ/L 138 MEQ/L 138 MEQ/L Potassium Level 4.6 MEQ/L 4.5 MEQ/L 4.7 MEQ/L Chloride Level 98 MEQ/L 102 MEQ/L 104 MEQ/L Carbon Dioxide Level 28.2 MEQ/L 26.6 MEQ/L 24.8 MEQ/L Anion Gap 11 MEQ/L 9 MEQ/L 9 MEQ/L Estimat Glomerular Filtration Rate 7 ML/MIN 7 ML/MIN 8 ML/MIN Total Creatine Kinase 2223 U/L 1382 U/L Creatine Kinase MB 5.4 NG/ML 6.5 NG/ML Creatine Kinase MB % 0.2 % 0.5 % Magnesium Level 2.3 MG/DL Imaging Last Impressions Lumbar Spine MRI 10/23/17 1608 Signed Impressions: Service Date/Time: Monday, October 23, 2017 16:34 - CONCLUSION: Abnormal erector spinae on the left. Not sure exactly what the etiology of this is. This could be myositis or denervation. With the history of endocarditis and inflammatory process is suspected. There is no abscess as yet. Renaldo Erickson MD FACR Thoracic Spine MRI 10/23/17 0000 Signed Impressions: Service Date/Time: Monday, October 23, 2017 15:40 - CONCLUSION: Suspected degenerative change of the lower thoracic spine at the T8-T9 to T10-T11 levels as described above. There is some kyphosis in this region. The kyphosis was present on a prior basketball scout image for a CT of the abdomen performed on 07/04/2017. These changes appear chronic. There is a focal right disc protrusion at the T10-T11 level with some degree of superior extrusion resulting in moderate narrowing of the thecal sac at this level. Kendell Tellez MD Renal Ultrasound 10/21/17 0000 Signed Impressions: Service Date/Time: September 11:21 - CONCLUSION: 1. Minimal right sided pelviectasis which may be residual in this patient with history of recent right hydronephrosis. 2. Otherwise, no evidence for obstructive uropathy. 3. Subcentimeter cyst in the inferior pole of the left kidney. Salvatore Laurent MD Abdomen/Pelvis CT 10/21/17 0000 Signed Impressions: Service Date/Time: Sunday, October 22, 2017 20:09 - CONCLUSION: 1. No evidence for obstructive uropathy on the current exam. Tiny bilateral nonobstructing renal calculi. Minimal anasarca. No bowel obstruction, free air. Trace free fluid. Mcleod catheter in bladder. 2. Stomach distended with air fluid level. Yves Yuen MD Head CT 10/20/17 1136 Signed Impressions: Service Date/Time: Friday, October 20, 2017 12:01 - CONCLUSION: Negative for an acute process. Renaldo Erickson MD FACR Chest X-Ray 10/20/17 1136 Signed Impressions: Service Date/Time: Friday, October 20, 2017 11:54 - CONCLUSION: No acute disease. Renaldo Erickson MD FACR Cervical Spine CT 10/20/17 0000 Signed Impressions: Service Date/Time: Friday, October 20, 2017 12:01 - CONCLUSION: No acute bony injury of the cervical spine Kendell Aguilar MD Last Impressions Head CT 10/20/17 1136 Signed Impressions: Service Date/Time: Friday, October 20, 2017 12:01 - CONCLUSION: Negative for an acute process. Renaldo Erickson MD FACR Chest X-Ray 10/20/17 1136 Signed Impressions: Service Date/Time: Friday, October 20, 2017 11:54 - CONCLUSION: No acute disease. Renaldo Erickson MD FACR Cervical Spine CT 10/20/17 0000 Signed Impressions: Service Date/Time: Friday, October 20, 2017 12:01 - CONCLUSION: No acute bony injury of the cervical spine Kendell Aguilar MD Objective Remarks General: NAD, AAox3 Chest: CTA Cardiac: Regular Abd: +BS, soft ND/NT Ext: Moving RLE better, left foot with minimal flexion -improving A/P Problem List: (1) Rhabdomyolysis ICD Codes: M62.82 - Rhabdomyolysis Status: Acute Plan: Rhabdomyolysis, cocaine induced Acute renal failure, ATN, secondary to rhabdomyolysis Hyperkalemia Elevated LFTs and troponin. related to rhabdo IVDA HEP C 2/4 gpc blood cx's, coag negative, felt likely to be contamination left lumbar erector spinae muscle swelling/edema, felt to be myositis - Pt is a 37 y/o WM with history of polysubstance abuse/IVDA, hx of rhabdomyolysis, nephrolithiasis and had lithotripsy in August 2017 and Hepatitis C. - Pt presented to the ED at [facility] on 10/20/17 with complaints of LE weakness and feeling unwell. He that he injected heroin and cocaine into his arm yesterday and then he woke up around 330AM this morning on the floor and felt like he couldn't move his legs. - Pt has had a few episodes of vomiting and feels that he has severe weakness in his legs and a pins and needles sensation. - Labs at admission revealed total CK 68,160, CK-MB 481.4, Cr 3.22/BUN 25, potassium 5.7 and Troponin 11.20. - Blood cultures were drawn in the ED and show 2/4 GPC. Pt was given vanco and rocephin in ED. - Pt has not had any fevers or chills and doesn't clinically look septic. Repeat blood cx taken 10/21 and ID consulted. Repeat cultures with NGTD It is not felt to be likely that the pt has endocarditis, case previously discussed with ID and they agree. - Pt was cont IVF and Mcleod. - Pts GFR 7. CK trending down. - Pt had VasCath placed on 10/24 and started HD on 10/25 - Hypocalcemia is improving with replacement - Monitor strength in left foot, if it doesn't return to nml as the right foot then consider neuro eval and EMG/NCS - Small dose prn pain medication - Thorazine PRN hiccups - AM labs including BMP and CK - HD per nephrology - discussed with nephrology, nephrology would like to monitor renal function over the weekend then make decision on need for HD after DC - per nephrology note plan to remove vascath Wednesday if renal function continues to improve - PT evaluated the pt and recommended home with home PT - DVT prophylaxis (2) Acute renal failure due to rhabdomyolysis ICD Codes: N17.9 - Acute kidney failure, unspecified; M62.82 - Rhabdomyolysis Status: Acute (3) IVDU (intravenous drug user) ICD Codes: F19.90 - Other psychoactive substance use, unspecified, uncomplicated Status: Chronic Plan: Patient counselled and encouraged to abstain patient informed about [facility] behavioral health services for substance abuse, but reports he is unable to attend meeting due to his work schedule will continue to provide information and provide narcotic anonymous information (4) Acute hyperkalemia ICD Codes: E87.5 - Hyperkalemia Status: Acute (5) Dehydration ICD Codes: E86.0 - Dehydration Status: Acute (6) Hepatitis C ICD Codes: B19.20 - Unspecified viral hepatitis C without hepatic coma Status: Chronic Assessment and Plan Patient examined. Assessment and plan formulated with Tracie Garcia PA-C. I agree with the above. Problem Qualifiers (1) Rhabdomyolysis: Tracie Garcia Oct 30, 2017 13:44 Lamont Garcia DO Oct 30, 2017 14:32
[2017-10-30] MEDS: FLUCONAZOLE 100 MG TAB PO SCH (15:58)
[2017-10-30] MEDS: traZODone HCL 100 MG TAB PO SCH (20:11)
[2017-10-31] VITALS (10 sets, daily range): BP systolic 118–133; BP diastolic 69–81; PULSE 67–87; RESP 16–20; TEMP 97.5–98.8; O2SAT 98–100
[2017-10-31 07:46] LABS: BICARBONATE 24.5 MEQ/L (21.0-32.0); CALCIUM 8.9 MG/DL (8.5-10.1); CREATININE 6.59 MG/DL (0.60-1.30)
[2017-10-31] MEDS: CHOLECALCIFEROL (VIT D3) 5000 UNIT CAP PO SCH (08:54)
[2017-10-31] MEDS: CALCIUM CARBONATE 1.25 GM (CA 500 MG) TAB PO SCH ×3 (08:54→18:42)
[2017-10-31] MEDS: LORazepam 1 MG TAB PO SCH ×2 (08:55→20:34)
[2017-10-31] MEDS: HEPARIN SODIUM - SQ 10,000 UNITS/ML VIAL SQ SCH ×2 (08:55→20:35)
[2017-10-31] MEDS: DOCUSATE SODIUM 100 MG CAP PO SCH ×2 (08:56→20:34)
[2017-10-31] MEDS: CALCIUM ACETATE 667 MG CAP PO SCH ×3 (08:57→18:42)
[2017-10-31] MEDS: DULoxetine HCl DR 60 MG CAP PO SCH (09:06)
--- NOTE | 2017-10-31 11:18 | HHI.PR ---
Subjective Remarks No new concerns/complaints making good urine creatinine improving Objective Vitals Vital Signs Date Time Temp Pulse Resp B/P (MAP) Pulse Ox O2 Delivery O2 Flow Rate FiO2 10/31/17 08:00 98.8 74 16 122/75 (91) 98 10/31/17 04:13 67 10/31/17 04:00 97.5 78 16 120/78 (92) 98 10/31/17 04:00 Room Air 10/31/17 00:05 70 10/31/17 00:00 97.9 72 16 133/81 (98) 99 10/31/17 00:00 Room Air 10/30/17 20:00 97.9 71 17 142/83 (102) 100 10/30/17 20:00 Room Air 10/30/17 19:42 75 10/30/17 16:00 74 10/30/17 16:00 97.8 79 20 121/73 (89) 98 10/30/17 12:00 97.1 68 20 121/80 (94) 99 Result Diagram: 10/27/17 0915 10/31/17 0600 Other Results Laboratory Tests Test 10/29/17 06:50 10/30/17 05:35 10/31/17 06:00 Blood Urea Nitrogen 73 MG/DL 82 MG/DL 82 MG/DL Creatinine 8.20 MG/DL 7.63 MG/DL 6.59 MG/DL Random Glucose 88 MG/DL 77 MG/DL 79 MG/DL Calcium Level 8.6 MG/DL 8.6 MG/DL 8.9 MG/DL Phosphorus Level 5.9 MG/DL 6.0 MG/DL Magnesium Level 2.3 MG/DL Sodium Level 138 MEQ/L 138 MEQ/L 138 MEQ/L Potassium Level 4.5 MEQ/L 4.7 MEQ/L 4.7 MEQ/L Chloride Level 102 MEQ/L 104 MEQ/L 104 MEQ/L Carbon Dioxide Level 26.6 MEQ/L 24.8 MEQ/L 24.5 MEQ/L Anion Gap 9 MEQ/L 9 MEQ/L 10 MEQ/L Estimat Glomerular Filtration Rate 7 ML/MIN 8 ML/MIN 10 ML/MIN Total Creatine Kinase 1382 U/L 467 U/L Creatine Kinase MB 6.5 NG/ML 8.2 NG/ML Creatine Kinase MB % 0.5 % 1.8 % Albumin 2.7 GM/DL Imaging Last Impressions Lumbar Spine MRI 10/23/17 1608 Signed Impressions: Service Date/Time: Monday, October 23, 2017 16:34 - CONCLUSION: Abnormal erector spinae on the left. Not sure exactly what the etiology of this is. This could be myositis or denervation. With the history of endocarditis and inflammatory process is suspected. There is no abscess as yet. Renaldo Erickson MD FACR Thoracic Spine MRI 10/23/17 0000 Signed Impressions: Service Date/Time: Monday, October 23, 2017 15:40 - CONCLUSION: Suspected degenerative change of the lower thoracic spine at the T8-T9 to T10-T11 levels as described above. There is some kyphosis in this region. The kyphosis was present on a prior associate technician image for a CT of the abdomen performed on 07/04/2017. These changes appear chronic. There is a focal right disc protrusion at the T10-T11 level with some degree of superior extrusion resulting in moderate narrowing of the thecal sac at this level. Kendell Tellez MD Renal Ultrasound 10/21/17 0000 Signed Impressions: Service Date/Time: September 11:21 - CONCLUSION: 1. Minimal right sided pelviectasis which may be residual in this patient with history of recent right hydronephrosis. 2. Otherwise, no evidence for obstructive uropathy. 3. Subcentimeter cyst in the inferior pole of the left kidney. Salvatore Laurent MD Abdomen/Pelvis CT 10/21/17 0000 Signed Impressions: Service Date/Time: Sunday, October 22, 2017 20:09 - CONCLUSION: 1. No evidence for obstructive uropathy on the current exam. Tiny bilateral nonobstructing renal calculi. Minimal anasarca. No bowel obstruction, free air. Trace free fluid. Mcleod catheter in bladder. 2. Stomach distended with air fluid level. Yves Yuen MD Head CT 10/20/17 1136 Signed Impressions: Service Date/Time: Friday, October 20, 2017 12:01 - CONCLUSION: Negative for an acute process. Renaldo Erickson MD FACR Chest X-Ray 10/20/17 1136 Signed Impressions: Service Date/Time: Friday, October 20, 2017 11:54 - CONCLUSION: No acute disease. Renaldo Erickson MD FACR Cervical Spine CT 10/20/17 0000 Signed Impressions: Service Date/Time: Friday, October 20, 2017 12:01 - CONCLUSION: No acute bony injury of the cervical spine Kendell Aguilar MD Last Impressions Head CT 10/20/17 1136 Signed Impressions: Service Date/Time: Friday, October 20, 2017 12:01 - CONCLUSION: Negative for an acute process. Renaldo Erickson MD FACR Chest X-Ray 10/20/17 1136 Signed Impressions: Service Date/Time: Friday, October 20, 2017 11:54 - CONCLUSION: No acute disease. Renaldo Erickson MD FACR Cervical Spine CT 10/20/17 0000 Signed Impressions: Service Date/Time: Friday, October 20, 2017 12:01 - CONCLUSION: No acute bony injury of the cervical spine Kendell Aguilar MD Objective Remarks General: NAD, AAox3 Chest: CTA Cardiac: Regular Abd: +BS, soft ND/NT Ext: Moving RLE better, left foot with minimal flexion -improving A/P Problem List: (1) Rhabdomyolysis ICD Codes: M62.82 - Rhabdomyolysis Status: Acute Plan: Rhabdomyolysis, cocaine induced Acute renal failure, ATN, secondary to rhabdomyolysis Hyperkalemia Elevated LFTs and troponin. related to rhabdo IVDA HEP C 2/4 gpc blood cx's, coag negative, felt likely to be contamination left lumbar erector spinae muscle swelling/edema, felt to be myositis - Pt is a 37 y/o WM with history of polysubstance abuse/IVDA, hx of rhabdomyolysis, nephrolithiasis and had lithotripsy in August 2017 and Hepatitis C. - Pt presented to the ED at [facility] [place] on 10/20/17 with complaints of LE weakness and feeling unwell. He that he injected heroin and cocaine into his arm yesterday and then he woke up around 330AM this morning on the floor and felt like he couldn't move his legs. - Pt has had a few episodes of vomiting and feels that he has severe weakness in his legs and a pins and needles sensation. - Labs at admission revealed total CK 68,160, CK-MB 481.4, Cr 3.22/BUN 25, potassium 5.7 and Troponin 11.20. - Blood cultures were drawn in the ED and show 2/4 GPC. Pt was given vanco and rocephin in ED. - Pt has not had any fevers or chills and doesn't clinically look septic. Repeat blood cx taken 10/21 and ID consulted. Repeat cultures with NGTD It is not felt to be likely that the pt has endocarditis, case previously discussed with ID and they agree. - Pt was cont IVF and Mcleod. - Pts GFR 7. CK trending down. - Pt had VasCath placed on 10/24 and started HD on 10/25 - Hypocalcemia is improving with replacement - Monitor strength in left foot, if it doesn't return to nml as the right foot then consider neuro eval and EMG/NCS. Strength LLE improving - Small dose prn pain medication - Thorazine PRN hiccups - AM labs including BMP and CK -> 10/31 BUN 82, creatinine 6.59 and GFR 10, CK 467 - HD per nephrology - discussed with nephrology, nephrology would like to monitor renal function over the weekend then make decision on need for HD after DC - per nephrology note plan to remove vascath Wednesday if renal function continues to improve - PT evaluated the pt and recommended home with home PT - DVT prophylaxis (2) Acute renal failure due to rhabdomyolysis ICD Codes: N17.9 - Acute kidney failure, unspecified; M62.82 - Rhabdomyolysis Status: Acute (3) IVDU (intravenous drug user) ICD Codes: F19.90 - Other psychoactive substance use, unspecified, uncomplicated Status: Chronic Plan: Patient counselled and encouraged to abstain patient informed about [facility] behavioral health services for substance abuse, but reports he is unable to attend meeting due to his work schedule will continue to provide information and provide narcotic anonymous information (4) Acute hyperkalemia ICD Codes: E87.5 - Hyperkalemia Status: Acute (5) Dehydration ICD Codes: E86.0 - Dehydration Status: Acute (6) Hepatitis C ICD Codes: B19.20 - Unspecified viral hepatitis C without hepatic coma Status: Chronic Assessment and Plan Patient examined. Assessment and plan formulated with Tracie Garcia PA-C. I agree with the above. Pt with good urine output. Creatinine continues to slowly improve. Repeat BMP, Mag, Phos in AM D/w Nephrology 11/01. Will pt need continued HD during this hospitalization or outpt? I again d/w pt the importance of abstinence from IV drug use (10/31/17). I did warn pt that continued IV drug use may lead to morbidity such as permanent kidney failure, readmission, or even . Pt NOT interested drug treatment program at this time. Problem Qualifiers (1) Rhabdomyolysis: Tracie Garcia Oct 31, 2017 11:18 Lamont Garcia DO Oct 31, 2017 13:43
--- NOTE | 2017-10-31 15:12 | HHI.NPPN ---
Subjective Renal Failure: Acute Additional Remarks Patient is alert, no SOB, eating well, has good urine out put, no complaint. Review of Systems General Constitutional: Fatigue Gastrointestinal Gastrointestinal: Constipation Neuro Neuro Remarks pedal weakness bilaterally Objective Data Data Vital Signs Date Time Temp Pulse Resp B/P (MAP) Pulse Ox O2 Delivery O2 Flow Rate FiO2 10/31/17 12:00 97.5 75 20 130/72 (91) 100 10/31/17 08:00 72 10/31/17 08:00 98.8 74 16 122/75 (91) 98 10/31/17 04:13 67 10/31/17 04:00 97.5 78 16 120/78 (92) 98 10/31/17 04:00 Room Air 10/31/17 00:05 70 10/31/17 00:00 97.9 72 16 133/81 (98) 99 10/31/17 00:00 Room Air 10/30/17 20:00 97.9 71 17 142/83 (102) 100 10/30/17 20:00 Room Air 10/30/17 19:42 75 10/30/17 16:00 74 10/30/17 16:00 97.8 79 20 121/73 (89) 98 -: 10/27/17 0915 10/31/17 0600 Tubes & Lines: Vas-Cath Physical Exam General Appearance: Well Developed, Well Nourished, No Acute Distress, Comfortable Eyes Eye Exam: Pupils Equal, Pupils Reactive Neck Neck Exam: Neck Supple, Trachea Midline Pulmonary Resp Exam: Clear Bilaterally, Breath Sounds Equal Cardiology CV Exam: Regular, Normal Sinus Rhythm, Good Perfusion Gastrointestinal/Abdomen GI Exam: Soft, Non-Tender, Bowel Sounds Present Musculoskeletal MS Exam: Joints Intact, Normal Tone, Good Strength Integumentary Skin Exam: Clear, Warm, Dry, Intact Extremeties Extremities Exam: No Edema Neurologic Neuro Exam: Alert, Awake, Oriented, Speech Clear Psychiatric Psych Exam: Appropriate Responses Assessment/Plan Discussed Condition With: Patient Assessment Summary: VIVIAN/Acute Renal Failure, Acute Tubular Necrosis, Vitamin D Defeciency Electrolyte Assessment: Hypocalcemia, Metabolic Acidosis Problem List: (1) Acute renal failure (ARF) ICD Codes: N17.9 - Acute kidney failure, unspecified Status: Acute Plan: Baseline creatinine of 1 IVVIAN due to rhabdomyolysis and sepsis and ATN Vascath placed 3/26. HD 10/25 (1L UF) and 10/26 (1 L UF) Creatinine is slightly better, excellent urine output He is in recovery phase follow renal function. Remove vascath on Wednesday provided continued improvement. Off IVF Avoid nephrotoxic agents, renally dose appropriate to renal status On fluconazole for yeast in urine Resume calcium acetate with meals. Creatinine is improving. Told to drink more fluid. \Dr. Garcia will follow from AM. (2) Rhabdomyolysis ICD Codes: M62.82 - Rhabdomyolysis Status: Acute Plan: Serial CPK monitoring, improving s/p Aggressive fluid resuscitation Monitor renal function post dialysis Having persistent left leg weakness/foot drop, consider neurology evaluation (3) Sepsis ICD Codes: A41.9 - Sepsis, unspecified organism Plan: staph, he admits to using dirty needles ID following Echo reviewed, EF 55-60%,. no vegetation repeat culture negative (4) Hypocalcemia ICD Codes: E83.51 - Hypocalcemia Plan: Improving, Has Severe vitamin D deficiency Continue replacement of 5000 units per day Also has Calcium replacement ordered (5) IVDU (intravenous drug user) ICD Codes: F19.90 - Other psychoactive substance use, unspecified, uncomplicated Status: Chronic Plan: Discussed cessation Avoid narcotic use (6) Hyperkalemia ICD Codes: E87.5 - Hyperkalemia Plan: corrected, monitor for recurrence (7) Hepatitis C ICD Codes: B19.20 - Unspecified viral hepatitis C without hepatic coma Status: Chronic Plan: Untreated Problem Qualifiers (1) Acute renal failure (ARF): Qualified Codes: N17.9 - Acute kidney failure, unspecified Angelique Landaverde MD Oct 31, 2017 15:12
[2017-10-31] MEDS: FLUCONAZOLE 100 MG TAB PO SCH (15:59)
[2017-10-31] MEDS: traZODone HCL 100 MG TAB PO SCH (20:34)
[2017-10-31] MEDS: SODIUM CHLORIDE 0.9% FLUSH 10 ML FLUSH IV FLUSH PRN (20:37)
[2017-11-01 04:00] VITALS: BP 133/73; PULSE 74; RESP 16; TEMP 97.5; O2SAT 99
[2017-11-01 08:00] VITALS: BP 128/73; PULSE 81; RESP 16; TEMP 97.7; O2SAT 98
[2017-11-01] MEDS: LORazepam 1 MG TAB PO SCH ×2 (08:23→22:18)
[2017-11-01] MEDS: DULoxetine HCl DR 60 MG CAP PO SCH (08:23)
[2017-11-01] MEDS: CALCIUM CARBONATE 1.25 GM (CA 500 MG) TAB PO SCH ×3 (08:23→22:20)
[2017-11-01] MEDS: CHOLECALCIFEROL (VIT D3) 5000 UNIT CAP PO SCH (08:23)
[2017-11-01] MEDS: CALCIUM ACETATE 667 MG CAP PO SCH ×3 (08:23→17:36)
[2017-11-01] MEDS: DOCUSATE SODIUM 100 MG CAP PO SCH ×2 (08:24→22:18)
[2017-11-01] MEDS: HEPARIN SODIUM - SQ 10,000 UNITS/ML VIAL SQ SCH ×2 (08:24→22:19)
--- NOTE | 2017-11-01 09:18 | HHI.PR ---
Subjective Remarks slow improvement with left foot strength. not sure if he will agree to drug rehab program Objective Vitals heart reg lung cta abd s/nt ext no edema Vital Signs Date Time Temp Pulse Resp B/P (MAP) Pulse Ox O2 Delivery O2 Flow Rate FiO2 11/01/17 08:00 97.7 81 16 128/73 (91) 98 11/01/17 04:00 97.5 74 16 133/73 (93) 99 10/31/17 23:56 97.9 74 18 131/79 (96) 100 10/31/17 20:00 98.0 72 18 118/69 (85) 100 10/31/17 19:30 Room Air 10/31/17 18:00 68 10/31/17 16:00 98.1 68 20 118/69 (85) 100 10/31/17 16:00 87 10/31/17 12:00 97.5 75 20 130/72 (91) 100 Result Diagram: 10/31/17 0600 Imaging Last Impressions Lumbar Spine MRI 10/23/17 1608 Signed Impressions: Service Date/Time: Monday, October 23, 2017 16:34 - CONCLUSION: Abnormal erector spinae on the left. Not sure exactly what the etiology of this is. This could be myositis or denervation. With the history of endocarditis and inflammatory process is suspected. There is no abscess as yet. Renaldo Erickson MD FACR Thoracic Spine MRI 10/23/17 0000 Signed Impressions: Service Date/Time: Monday, October 23, 2017 15:40 - CONCLUSION: Suspected degenerative change of the lower thoracic spine at the T8-T9 to T10-T11 levels as described above. There is some kyphosis in this region. The kyphosis was present on a prior shallot cleaner image for a CT of the abdomen performed on 07/04/2017. These changes appear chronic. There is a focal right disc protrusion at the T10-T11 level with some degree of superior extrusion resulting in moderate narrowing of the thecal sac at this level. Kendell Tellez MD Renal Ultrasound 10/21/17 0000 Signed Impressions: Service Date/Time: September 11:21 - CONCLUSION: 1. Minimal right sided pelviectasis which may be residual in this patient with history of recent right hydronephrosis. 2. Otherwise, no evidence for obstructive uropathy. 3. Subcentimeter cyst in the inferior pole of the left kidney. Salvatore Laurent MD Abdomen/Pelvis CT 10/21/17 0000 Signed Impressions: Service Date/Time: Sunday, October 22, 2017 20:09 - CONCLUSION: 1. No evidence for obstructive uropathy on the current exam. Tiny bilateral nonobstructing renal calculi. Minimal anasarca. No bowel obstruction, free air. Trace free fluid. Mcleod catheter in bladder. 2. Stomach distended with air fluid level. Yves Yuen MD Head CT 10/20/17 1136 Signed Impressions: Service Date/Time: Friday, October 20, 2017 12:01 - CONCLUSION: Negative for an acute process. Renaldo Erickson MD FACR Chest X-Ray 10/20/171135 Signed Impressions: Service Date/Time: Friday, October 20, 2017 11:54 - CONCLUSION: No acute disease. Renaldo Erickson MD FACR Cervical Spine CT 10/20/17 0000 Signed Impressions: Service Date/Time: Friday, October 20, 2017 12:01 - CONCLUSION: No acute bony injury of the cervical spine Kendell Aguilar MD Last Impressions Head CT 10/20/17 113 Signed Impressions: Service Date/Time: Friday, October 20, 2017 12:01 - CONCLUSION: Negative for an acute process. Renaldo Erickson MD FACR Chest X-Ray 10/20/17 113 Signed Impressions: Service Date/Time: Friday, October 20, 2017 11:54 - CONCLUSION: No acute disease. Renaldo Erickson MD FACR Cervical Spine CT 10/20/17 0000 Signed Impressions: Service Date/Time: Friday, October 20, 2017 12:01 - CONCLUSION: No acute bony injury of the cervical spine Kendell Aguilar MD A/P Problem List: (1) Rhabdomyolysis ICD Codes: M62.82 - Rhabdomyolysis Status: Acute Plan: Rhabdomyolysis, cocaine induced Acute renal failure, ATN, secondary to rhabdomyolysis Hyperkalemia Elevated LFTs and troponin. related to rhabdo IVDA HEP C 2/4 gpc blood cx's, coag negative, felt likely to be contamination left lumbar erector spinae muscle swelling/edema, felt to be myositis - Pt is a 37 y/o WM with history of polysubstance abuse/IVDA, hx of rhabdomyolysis, nephrolithiasis and had lithotripsy in August 2017 and Hepatitis C. - Pt presented to the ED at [facility] [place] on 10/20/17 with complaints of LE weakness and feeling unwell. He that he injected heroin and cocaine into his arm yesterday and then he woke up around 330AM this morning on the floor and felt like he couldn't move his legs. - Pt has had a few episodes of vomiting and feels that he has severe weakness in his legs and a pins and needles sensation. - Labs at admission revealed total CK 68,160, CK-MB 481.4, Cr 3.22/BUN 25, potassium 5.7 and Troponin 11.20. - Blood cultures were drawn in the ED and show 2/4 GPC. Pt was given vanco and rocephin in ED. - Pt has not had any fevers or chills and doesn't clinically look septic. Repeat blood cx taken 10/21 and ID consulted. Repeat cultures with NGTD It is not felt to be likely that the pt has endocarditis, case previously discussed with ID and they agree. - CK trending down. - Pt had VasCath placed on 10/24 and started HD on 10/25 - Hypocalcemia is improving with replacement - Monitor strength in left foot, if it doesn't return to nml as the right foot then consider neuro eval and EMG/NCS. Strength LLE improving - Small dose prn pain medication - Thorazine PRN hiccups - HD per nephrology...await further dialysis/vascath decisions today - PT evaluated the pt and recommended home with home PT - DVT prophylaxis (2) Acute renal failure due to rhabdomyolysis ICD Codes: N17.9 - Acute kidney failure, unspecified; M62.82 - Rhabdomyolysis Status: Acute (3) IVDU (intravenous drug user) ICD Codes: F19.90 - Other psychoactive substance use, unspecified, uncomplicated Status: Chronic Plan: Patient counselled and encouraged to abstain patient informed about [facility] behavioral health services for substance abuse, but reports he is unable to attend meeting due to his work schedule will continue to provide information and provide narcotic anonymous information (4) Acute hyperkalemia ICD Codes: E87.5 - Hyperkalemia Status: Acute (5) Dehydration ICD Codes: E86.0 - Dehydration Status: Acute (6) Hepatitis C ICD Codes: B19.20 - Unspecified viral hepatitis C without hepatic coma Status: Chronic Problem Qualifiers (1) Rhabdomyolysis: Javier Le MD Nov 01, 2017 09:18
[2017-11-01] MEDS ORDERED: BISACODYL 10 MG SUPP RECTAL PRN (09:30)
--- NOTE | 2017-11-01 10:52 | HHI.NPPN ---
Subjective Renal Failure: Acute Interval History Lying in bed. AM labs in process. He is ambulating with a walker. (Merly Moran) Review of Systems General Constitutional: Fatigue (Merly Moran) Gastrointestinal Gastrointestinal: Constipation (Merly Moran) Neuro Neuro Remarks pedal weakness bilaterally (Merly Moran) Objective Data Data Vital Signs Date Time Temp Pulse Resp B/P (MAP) Pulse Ox O2 Delivery O2 Flow Rate FiO2 11/01/17 08:00 97.7 81 16 128/73 (91) 98 11/01/17 04:00 97.5 74 16 133/73 (93) 99 10/31/17 23:56 97.9 74 18 131/79 (96) 100 10/31/17 20:00 98.0 72 18 118/69 (85) 100 10/31/17 19:30 Room Air 10/31/17 18:00 68 10/31/17 16:00 98.1 68 20 118/69 (85) 100 10/31/17 16:00 87 10/31/17 12:00 97.5 75 20 130/72 (91) 100 (Merly Moran) -: 10/31/17 0600 Tubes & Lines: Vas-Cath (Merly Moran) Physical Exam General Appearance: Well Developed, Well Nourished, No Acute Distress, Comfortable (Merly Moran) Eyes Eye Exam: Pupils Equal, Pupils Reactive (Merly Moran) Neck Neck Exam: Neck Supple, Trachea Midline (Merly Moran) Pulmonary Resp Exam: Clear Bilaterally, Breath Sounds Equal (Merly Moran) Cardiology CV Exam: Regular, Normal Sinus Rhythm, Good Perfusion (Merly Moran) Gastrointestinal/Abdomen GI Exam: Soft, Non-Tender, Bowel Sounds Present (Merly Moran) Musculoskeletal MS Exam: Joints Intact, Normal Tone, Good Strength (Merly Moran) Integumentary Skin Exam: Clear, Warm, Dry, Intact (Merly Moran) Extremeties Extremities Exam: No Edema (Merly Moran) Neurologic Neuro Exam: Alert, Awake, Oriented, Speech Clear (Merly Moran) Psychiatric Psych Exam: Appropriate Responses (Merly Moran) Assessment/Plan Discussed Condition With: Patient Assessment Summary: VIVIAN/Acute Renal Failure, Acute Tubular Necrosis, Vitamin D Defeciency Electrolyte Assessment: Hypocalcemia, Metabolic Acidosis Problem List: (1) Acute renal failure (ARF) ICD Codes: N17.9 - Acute kidney failure, unspecified Status: Acute Plan: Baseline creatinine of 1 VIVIAN due to rhabdomyolysis and sepsis and ATN Currently in recovery phase Pending lab results today, may have HD catheter removed. Off IVF Avoid nephrotoxic (2) Rhabdomyolysis ICD Codes: M62.82 - Rhabdomyolysis Status: Acute Plan: Serial CPK monitoring, improving s/p Aggressive fluid resuscitation Monitor renal function post dialysis Having persistent left leg weakness/foot drop, consider neurology evaluation (3) Sepsis ICD Codes: A41.9 - Sepsis, unspecified organism Plan: staph, he admits to using dirty needles ID following Echo reviewed, EF 55-60%,. no vegetation repeat culture negative (4) Hypocalcemia ICD Codes: E83.51 - Hypocalcemia Plan: Improving, Has Severe vitamin D deficiency Continue replacement of 5000 units per day Also has Calcium replacement ordered (5) IVDU (intravenous drug user) ICD Codes: F19.90 - Other psychoactive substance use, unspecified, uncomplicated Status: Chronic Plan: Discussed cessation Avoid narcotic use (6) Hyperkalemia ICD Codes: E87.5 - Hyperkalemia Plan: corrected, monitor for recurrence (7) Hepatitis C ICD Codes: B19.20 - Unspecified viral hepatitis C without hepatic coma Status: Chronic Plan: Untreated Plan p (Merly Moran) Plan patient was seen and examined. His renal function has improved. Vascath can be removed. He can be discharged from renal standpoint. (Jacek Garcia MD) Problem Qualifiers (1) Acute renal failure (ARF): Qualified Codes: N17.9 - Acute kidney failure, unspecified Merly Moran Nov 01, 2017 10:52 Jacek Garcia MD Nov 01, 2017 14:39
[2017-11-01 10:59] LABS: BICARBONATE 25.7 MEQ/L (21.0-32.0); CALCIUM 9.6 MG/DL (8.5-10.1); CREATININE 5.57 MG/DL (0.60-1.30); MAGNESIUM 2.3 MG/DL (1.5-2.5)
[2017-11-01] MEDS: LACTULOSE SYRUP 20 GM/30 ML CUP PO SCH ×2 (11:36→12:52)
[2017-11-01] MEDS: CYCLOBENZAPRINE HCL 10 MG TAB PO SCH ×3 (11:39→22:18)
[2017-11-01 12:00] VITALS: BP 119/79; PULSE 69; RESP 16; TEMP 97.9; O2SAT 100
[2017-11-01 16:00] VITALS: BP 140/72; PULSE 90; RESP 16; TEMP 98.2; O2SAT 98
--- NOTE | 2017-11-01 17:27 | HHI.DCPOC ---
Discharge Care Plan Diagnosis: (1) Rhabdomyolysis (2) Acute renal failure due to rhabdomyolysis (3) IV drug abuse Goals to Promote Your Health * To prevent worsening of your condition and complications * To maintain your health at the optimal level Directions to Meet Your Goals Take your medications as prescribed Follow your dietary instruction Follow activity as directed Keep your appointments as scheduled Take your immunizations and boosters as scheduled If your symptoms worsen call your PCP, if no PCP go to Urgent Care Center or Emergency Room Smoking is Dangerous to Your Health. Avoid second hand smoke Call the 24-hour hour crisis hotline for domestic abuse at Tracie Garcia Nov 01, 2017 17:27
--- NOTE | 2017-11-01 17:29 | HHI.FF ---
Face to Face Verification Diagnosis: (1) Polysubstance abuse (2) Rhabdomyolysis (3) IV drug abuse (4) Acute renal failure due to rhabdomyolysis Physical Therapy Order: Evaluate and Treat, Improve ambulation, Strength and gait training Occupational Therapy Order: Evaluate and Treat Home Health Nursing Order: Medical education Signs/symptoms of disease process Medication education-adverse effect Nursing assessment with vital signs I have seen patient Vaughn Mathias on 11/01/17. My clinical findings support the need for the requested home health care services because: Ltd mobility - disease progression Deconditioned w/ increased weakness Med compliance is questionable I certify that my clinical findings support that this patient is homebound because: Impaired cognitive ability/safety Unsteady gait/balance Unsafe to leave home unassisted Tracie Garcia Nov 01, 2017 17:29 Javier Le MD Nov 02, 2017 14:22
[2017-11-01] MEDS: FLUCONAZOLE 100 MG TAB PO SCH (17:36)
[2017-11-01 20:00] VITALS: BP 124/70; PULSE 76; RESP 18; TEMP 97.4; O2SAT 98
[2017-11-01] MEDS: traZODone HCL 100 MG TAB PO SCH (22:19)
[2017-11-02] VITALS: BP 128/72; PULSE 84; RESP 20; TEMP 97.5; O2SAT 96
[2017-11-02 04:00] VITALS: BP 130/78; PULSE 80; RESP 18; TEMP 97.5; O2SAT 97
[2017-11-02] MEDS: CYCLOBENZAPRINE HCL 10 MG TAB PO SCH ×2 (06:27→12:19)
[2017-11-02 08:03] VITALS: BP 114/78; PULSE 72; RESP 20; TEMP 97.7; O2SAT 98
[2017-11-02] MEDS ORDERED: CHOLECALCIFEROL (VIT D3) 1000 UNIT TAB PO SCH (09:00)
[2017-11-02] MEDS ORDERED: WALKER WHEELS/F1 MIS (09:11)
[2017-11-02] MEDS ORDERED: CYCL10TA PO (09:13)
--- NOTE | 2017-11-02 09:23 | HHI.DS ---
Discharge Summary Admission Date Oct 20, 2017 at 13:55 Discharge Date: Nov 02, 2017 Admitting Diagnosis Cocaine induced rhabdomyolysis, acute renal failure (1) Rhabdomyolysis Diagnosis: Principal ICD Codes: M62.82 - Rhabdomyolysis Status: Acute (2) Acute renal failure due to rhabdomyolysis Diagnosis: Principal ICD Codes: N17.9 - Acute kidney failure, unspecified; M62.82 - Rhabdomyolysis Status: Acute (3) IVDU (intravenous drug user) Diagnosis: Principal ICD Codes: F19.90 - Other psychoactive substance use, unspecified, uncomplicated Status: Chronic (4) Acute hyperkalemia Diagnosis: Principal ICD Codes: E87.5 - Hyperkalemia Status: Acute (5) Dehydration Diagnosis: Principal ICD Codes: E86.0 - Dehydration Status: Acute (6) Hepatitis C ICD Codes: B19.20 - Unspecified viral hepatitis C without hepatic coma Status: Chronic Brief History Mr. Mathias is a 37 y/o WM with history of polysubstance abuse/IVDA, hx of rhabdomyolysis, nephrolithiasis and had lithotripsy in August 2017 and Hepatitis C. Pt presented to the ED at [facility] [place] on 10/20/17 with complaints of LE weakness and feeling unwell. He reports that he injected heroin and cocaine into his arm yesterday and then he woke up around 330AM this morning on the floor and felt like he couldn't move his legs. He states that he typically uses iv Dilaudid once every couple weeks, iv cocaine about once per month and iv heroin about once per year. He states that when he has used IV heroin in the past he has had rhabdomyolysis. This occurred in 2016 as well and pt was hospitalized at that time. Pt has had a few episodes of vomiting today and feels that he has severe weakness in his legs and a pins and needles sensation. He had urinated a small amount of dark urine today. His labs at admission revealed total CK 68,160, CK-MB 481.4, Cr 3.22/BUN 25, potassium 5.7 and Troponin 11.20. Pt denies any fevers, chills, night sweats, chest pain, SOB, palpitations, abdominal pain, lightheadedness or dizziness. Blood cultures were drawn in the ED and are pending. Pt has received 2L of IV NS in the ED so far. CBC/BMP: 11/01/17 0930 Significant Findings Laboratory Tests Test 10/31/17 06:00 11/01/17 09:30 Blood Urea Nitrogen 82 MG/DL (7-18) 83 MG/DL (7-18) Creatinine 6.59 MG/DL (0.60-1.30) 5.57 MG/DL (0.60-1.30) Estimat Glomerular Filtration Rate 10 ML/MIN (>89) 12 ML/MIN (>89) Total Creatine Kinase 467 U/L (39-308) 359 U/L (39-308) Creatine Kinase MB 8.2 NG/ML (0.5-3.6) 12.6 NG/ML (0.5-3.6) Phosphorus Level 5.0 MG/DL (2.5-4.9) Hospital Course (1) Rhabdomyolysis Rhabdomyolysis, cocaine induced Acute renal failure, ATN, secondary to rhabdomyolysis Hyperkalemia Elevated LFTs and troponin. related to rhabdo IVDA HEP C 2/4 gpc blood cx's, coag negative, felt likely to be contamination left lumbar erector spinae muscle swelling/edema, felt to be myositis - Pt is a 37 y/o WM with history of polysubstance abuse/IVDA, hx of rhabdomyolysis, nephrolithiasis and had lithotripsy in August 2017 and Hepatitis C. - Pt presented to the ED at [facility] [place] on 10/20/17 with complaints of LE weakness and feeling unwell. He that he injected heroin and cocaine into his arm yesterday and then he woke up around 330AM this morning on the floor and felt like he couldn't move his legs. - Pt has had a few episodes of vomiting and feels that he has severe weakness in his legs and a pins and needles sensation. - Labs at admission revealed total CK 68,160, CK-MB 481.4, Cr 3.22/BUN 25, potassium 5.7 and Troponin 11.20. - Blood cultures were drawn in the ED and show 2/4 GPC. Pt was given vanco and rocephin in ED. - Pt has not had any fevers or chills and doesn't clinically look septic. Repeat blood cx taken 10/21 and ID consulted. Repeat cultures with NGTD It is not felt to be likely that the pt has endocarditis, case previously discussed with ID and they agree. - CK trending down. - Pt had VasCath placed on 10/24 and started HD on 10/25. vascath removed on 11/01. pt renal function impoving. - Hypocalcemia is improving with replacement - Monitor strength in left foot, if it doesn't return to nml as the right foot then consider neuro eval and EMG/NCS. Strength LLE improving at this point I discussed with patient and pcp if doesnt make complete recovery then get further eval. -f/u nephrology as outpt for recheck. - PT evaluated the pt and recommended home with home PT - DVT prophylaxis (2) Acute renal failure due to rhabdomyolysis ICD Codes: N17.9 - Acute kidney failure, unspecified; M62.82 - Rhabdomyolysis Status: Acute (3) IVDU (intravenous drug user) ICD Codes: F19.90 - Other psychoactive substance use, unspecified, uncomplicated Status: Chronic Plan: Patient counselled and encouraged to abstain patient informed about [facility] behavioral health services for substance abuse, but reports he is unable to attend meeting due to his work schedule will continue to provide information and provide narcotic anonymous information (4) Acute hyperkalemia ICD Codes: E87.5 - Hyperkalemia Status: Acute (5) Dehydration ICD Codes: E86.0 - Dehydration Status: Acute (6) Hepatitis C ICD Codes: B19.20 - Unspecified viral hepatitis C without hepatic coma Status: Chronic Pt Condition on Discharge: Stable Discharge Disposition: Disch w/ Home Health Serv Discharge Instructions DIET: Follow Instructions for: As Tolerated, No Restrictions Activities you can perform: Regular-No Restrictions Follow up Referrals: Nephrology - [address] Garcia PCP Follow-up - [address] Villalba New Medications: Walker with Front Wheels (Walker with Front Wheels) 1 Mis Mis EA .XX DIRECTED, #1 0 Refills Cyclobenzaprine (Flexeril) 10 Mg Tab 10 MG PO Q8HR for muscle spasm, #30 TAB Continued Medications: Duloxetine (Cymbaleli OBRIEN) 60 Mg Capdr 60 MG PO DAILY, #30 CAP 0 Refills Lorazepam (Ativan) 1 Mg Tab 1 MG PO BID PRN for ANXIETY, TAB 0 Refills Trazodone (Trazodone) 100 Mg Tablet 200 MG PO HS for Control Depression, #30 TAB 0 Refills Mimi,Javier L MD Nov 02, 2017 09:23
[2017-11-02] MEDS: LORazepam 1 MG TAB PO SCH (09:24)
[2017-11-02] MEDS: CALCIUM CARBONATE 1.25 GM (CA 500 MG) TAB PO SCH (09:24)
[2017-11-02] MEDS: HEPARIN SODIUM - SQ 10,000 UNITS/ML VIAL SQ SCH (09:24)
[2017-11-02] MEDS: DOCUSATE SODIUM 100 MG CAP PO SCH (09:24)
[2017-11-02] MEDS: CALCIUM ACETATE 667 MG CAP PO SCH ×3 (09:24→18:00)
[2017-11-02] MEDS: DULoxetine HCl DR 60 MG CAP PO SCH (09:25)
--- NOTE | 2017-11-02 11:05 | HHI.NPPN ---
Subjective Renal Failure: Acute Interval History To be discharged. Vascath removed. (Merly Moran) Review of Systems General Constitutional: Fatigue (Merly Moran) Gastrointestinal Gastrointestinal: Constipation (Merly Moran) Neuro Neuro Remarks pedal weakness bilaterally (Merly Moran) Objective Data Data Vital Signs Date Time Temp Pulse Resp B/P (MAP) Pulse Ox O2 Delivery O2 Flow Rate FiO2 11/02/17 08:45 Room Air 11/02/17 08:03 97.7 72 20 114/78 (90) 98 11/02/17 04:00 97.5 80 18 130/78 (95) 97 11/02/17 00:00 97.5 84 20 128/72 (90) 96 11/01/17 20:00 97.4 76 18 124/70 (88) 98 11/01/17 20:00 Room Air 11/01/17 16:00 98.2 90 16 140/72 (94) 98 11/01/17 12:00 97.9 69 16 119/79 (92) 100 (Merly Moran) -: 11/01/17 0930 Physical Exam General Appearance: Well Developed, Well Nourished, No Acute Distress, Comfortable (Merly Moran) Eyes Eye Exam: Pupils Equal, Pupils Reactive (Merly Moran) Neck Neck Exam: Neck Supple, Trachea Midline (Merly Moran) Pulmonary Resp Exam: Clear Bilaterally, Breath Sounds Equal (Merly Moran) Cardiology CV Exam: Regular, Normal Sinus Rhythm, Good Perfusion (Merly Moran) Gastrointestinal/Abdomen GI Exam: Soft, Non-Tender, Bowel Sounds Present (Merly Moran) Musculoskeletal MS Exam: Joints Intact, Normal Tone, Good Strength (Merly Moran) Integumentary Skin Exam: Clear, Warm, Dry, Intact (Merly Moran) Extremeties Extremities Exam: No Edema (Merly Moran) Neurologic Neuro Exam: Alert, Awake, Oriented, Speech Clear (Merly Moran) Psychiatric Psych Exam: Appropriate Responses (Merly Moran) Assessment/Plan Discussed Condition With: Patient Assessment Summary: VIVIAN/Acute Renal Failure, Acute Tubular Necrosis, Vitamin D Defeciency Electrolyte Assessment: Hypocalcemia, Metabolic Acidosis Problem List: (1) Acute renal failure (ARF) ICD Codes: N17.9 - Acute kidney failure, unspecified Status: Acute Plan: Baseline creatinine of 1 VIVIAN due to rhabdomyolysis and sepsis and ATN He is in renal recovery Vascth removed Advised to increase PO fluids, avoid NSAIDs stable for discharge (2) Rhabdomyolysis ICD Codes: M62.82 - Rhabdomyolysis Status: Acute Plan: improved (3) Sepsis ICD Codes: A41.9 - Sepsis, unspecified organism Plan: stable (4) Hypocalcemia ICD Codes: E83.51 - Hypocalcemia Plan: Improving, Has Severe vitamin D deficiency Continue replacement of 5000 units per day Also has Calcium replacement ordered (5) IVDU (intravenous drug user) ICD Codes: F19.90 - Other psychoactive substance use, unspecified, uncomplicated Status: Chronic Plan: Discussed cessation Avoid narcotic use (6) Hyperkalemia ICD Codes: E87.5 - Hyperkalemia Plan: corrected, monitor for recurrence (7) Hepatitis C ICD Codes: B19.20 - Unspecified viral hepatitis C without hepatic coma Status: Chronic Plan: Untreated (Merly Moran) Plan patient was seen and examined. Agree with above assessment and plan. (Jacek Garcia MD) Problem Qualifiers (1) Acute renal failure (ARF): Qualified Codes: N17.9 - Acute kidney failure, unspecified Merly Moran Nov 02, 2017 11:05 Jacek Garcia MD Nov 02, 2017 14:20
[2017-11-02] MEDS ORDERED: SOD PHOSPHATE/SOD BIPHOSPHATE (ADULT) ENEMA 133ML RECTAL PRN (11:15)
[2017-11-02] MEDS ORDERED: BISACODYL 10 MG SUPP RECTAL ONE (12:00)
[2017-11-02 12:03] VITALS: BP 116/76; PULSE 74; RESP 20; TEMP 97.8; O2SAT 98
[2017-11-02] MEDS: FLUCONAZOLE 100 MG TAB PO SCH (14:54)
[2017-11-02] MEDS ORDERED: LACTULOSE SYRUP 20 GM/30 ML CUP PO ONE ×2 (15:00→17:00)
[2017-11-02 16:03] VITALS: BP 139/85; PULSE 99; RESP 20; TEMP 97.4; O2SAT 99
== END 2017-11-02 18:38 | disposition home health service (06) | DRG 917 ==
LOC: NEPE 11:29 → NEDA 13:55 → HCIS 18:55 → UNDODISIN 10-22 19:02 → N04A 10-26 05:08
PROVIDERS: ADMIT Hospitalist; ATTEND Hospitalist
PROC: 05HM33Z Insertion of Infusion Device into Right Internal Jugular Vein, Percutaneous Approach (ICD-10-PCS; principal; 2017-10-25)
PROC: 5A1D70Z Performance of Urinary Filtration, Intermittent, Less than 6 Hours Per Day (ICD-10-PCS; 2017-10-25)
DX: T40.5X1A Poisoning by cocaine, accidental (unintentional), initial encounter (principal); N17.0 Acute kidney failure with tubular necrosis; M62.82 Rhabdomyolysis; E87.2 Acidosis; E87.5 Hyperkalemia; E83.51 Hypocalcemia; I45.10 Unspecified right bundle-branch block; F14.10 Cocaine abuse, uncomplicated; Z87.442 Personal history of urinary calculi; K21.9 Gastro-esophageal reflux disease without esophagitis; B19.20 Unspecified viral hepatitis C without hepatic coma; F31.9 Bipolar disorder, unspecified; F41.9 Anxiety disorder, unspecified; F19.10 Other psychoactive substance abuse, uncomplicated; E86.0 Dehydration; G47.00 Insomnia, unspecified; E55.9 Vitamin D deficiency, unspecified; K59.00 Constipation, unspecified; M21.372 Foot drop, left foot; M40.204 Unspecified kyphosis, thoracic region
CPT/HCPCS: 36556; 70450; 71045; 72125; 72146; 72148; 74176; 76775; 76937; 77001; 80048; 80053; 80069; 80074; 81001; 82306; 82550; 82552; 83605; 83735; 83970; 84100; 84155; 84484; 85007; 85025; 85027; 85610; 85730; 86160; 86403; 87040; 87077; 87086; 87186; 87205; 90935; 93005; 93306; 96361; 96365; 96374; C1752; J0696; J1580; J1644; J1940; J2405; J3370; J7030; J7050